=== PATIENT | female | born 1995 | race Two or more races ===

== ENCOUNTER 2022-01-10 10:15 | Outpatient (REF) | payer OTHER, SELFPAY ==
--- NOTE | ~2022-01-10 | XR_ITS ---
EXAMINATION: XR CHEST CLINICAL INFORMATION: Mild intermittent asthma COMPARISON: None TECHNIQUE: 2 views of the chest were obtained. FINDINGS: The cardiac and mediastinal contours are normal. There are increased central bronchial markings suggestive of bronchial wall thickening or asthma. No evidence of a lobar pneumonia is seen. There is no pleural effusion or pneumothorax. Bony structures are unremarkable. XR/XR chest 2V IMPRESSION: Central bronchial wall thickening suggestive of bronchitis or asthma. No evidence of a lobar pneumonia.
== END 2022-01-10 10:16 | disposition home or self-care (01) ==
LOC: HO.HMGCX 10:15
PROVIDERS: PCP Internal Medicine; Visit Provider Internal Medicine
DX: J45.20 Mild intermittent asthma, uncomplicated (principal); R05.9 Cough, unspecified
CPT/HCPCS: 71046

== ENCOUNTER 2022-04-28 15:23 | Outpatient (REF) | payer OTHER, SELFPAY ==
[2022-04-29 05:22] LABS: Rubella IgG Antibody 8.25 Index
[2022-05-01 09:00] LABS: HBS Num1 11.59 mIU/mL (0-7.99)
[2022-05-01 09:05] LABS: HBS Num2 12.14 mIU/mL (0-7.99); HBS Num3 11.59 mIU/mL (0-7.99); ~Hepatitis B Surface Antibody GRAYZONE (Nonreactive)
== END 2022-04-28 15:24 | disposition home or self-care (01) ==
LOC: HO.HMGCLDS 15:23
PROVIDERS: PCP Internal Medicine; Visit Provider Internal Medicine
DX: Z01.84 Encounter for antibody response examination (principal)
CPT/HCPCS: 36415; 86706; 86735; 86762; 86765; 86787

== ENCOUNTER 2022-05-18 12:45 | Outpatient (REF) | payer OTHER, SELFPAY ==
[2022-05-21 18:06] LABS: TS Negative Control Passed; TS Panel A 0; TS Panel B 0; TS Positive Control Passed; TSpotTB Negative (Negative)
== END 2022-05-18 12:46 | disposition home or self-care (01) ==
LOC: HO.HMGCLDS 12:45
PROVIDERS: PCP Internal Medicine; Visit Provider Internal Medicine
DX: Z11.1 Encounter for screening for respiratory tuberculosis (principal)
CPT/HCPCS: 36415; 86481

== ENCOUNTER 2022-06-05 12:02 | Outpatient (REF) | payer OTHER, SELFPAY ==
[2022-06-06 08:07] LABS: ~Hepatitis B Surface Antibody REACTIVE (Nonreactive)
== END 2022-06-05 12:03 | disposition home or self-care (01) ==
LOC: HO.HMGCLDS 12:02
PROVIDERS: PCP Internal Medicine; Visit Provider Internal Medicine
DX: Z01.84 Encounter for antibody response examination (principal)
CPT/HCPCS: 36415; 86706

== ENCOUNTER 2023-05-12 14:27 | Emergency (ER) | payer OTHER, SELFPAY ==
--- NOTE | ~2023-05-12 | XR_ITS ---
EXAMINATION: XR HAND, LEFT CLINICAL INFORMATION: Left ring finger pain COMPARISON: None available. TECHNIQUE: PA, lateral, and oblique views of the left hand. FINDINGS: The bones and soft tissues are normal. No fracture. Alignment is anatomic. Joint spaces are maintained. No erosions or soft tissue calcifications. XR/XR hand LT min 3V IMPRESSION: Normal left hand.
--- NOTE | 2023-05-12 14:37 | ED_ITS ---
HPI - General Adult General Chief complaint: Extremity Injury, Upper Stated complaint: sent from [facility], ? broken finger Time Seen by Provider: 05/12/23 14:53 Source: patient Mode of arrival: ambulatory Limitations: no limitations History of Present Illness HPI narrative: 27-year-old female with history of asthma, [id number] here with complaints of left 4th finger swelling and pain for 6 days. Patient cannot recall any injury or trauma but works in a job where she is always hitting her hands on [place]. There is swelling on exam. There is no complaints of redness or warmth. No numbness, tingling or weakness of the extremity Related Data Home Medications Medication Instructions Recorded Confirmed etonogestrel 68 mg subdermal subdermal 01/10/22 05/12/23 implant (Nexplanon) Previous Rx's Medication Instructions Recorded albuterol sulfate 2.5 mg/3 mL 2.5 mg (3 mL) inhalation Q4-6H PRN 12/30/21 (0.083 %) solution for nebulization shortness of breath or wheezing #180 mL Aerochamber MV (inhalational #10 ea 01/10/22 spacing device) Symbicort 160 mcg-4.5 2 puff inhalation Q12H #10.2 grams 12/27/22 mcg/actuation HFA aerosol inhaler (budesonide-formoterol) montelukast 10 mg tablet 10 mg PO QPM #90 tabs 12/27/22 (Singulair) albuterol sulfate 90 mcg/actuation 2 puff inhalation Q6H PRN 01/11/23 aerosol inhaler (Ventolin HFA) shortness of breath or wheezing #8.5 grams meloxicam 15 mg tablet 15 mg PO DAILY #14 tabs 05/12/23 Allergies Allergy/AdvReac Type Severity Reaction Status Date / Time No Known Allergies Allergy Verified 05/12/23 12:07 Review of Systems Review of Systems: Yes all other systems are reviewed and are negative Constitutional: Constitutional: Reports no additional constitutional complaints, Denies body ache(s), Denies chills, Denies fever(s), Denies headache(s) and Denies weakness Eyes: Eyes: Reports no additional eye complaints and Denies change in vision ENT: Reports system reviewed and no additional complaints, except as documented, Denies dizziness, Denies headache(s), Denies nasal congestion, Denies nasal discharge and Denies neck pain Cardiovascular: Cardiovascular: Reports no additional cardiovascular complaints, Denies chest pain, Denies leg edema and Denies dyspnea Respiratory: Respiratory: Reports no additional respiratory complaints, Denies cough and Denies dyspnea Gastrointestinal: Gastrointestinal: Reports no additional gastrointestinal complaints, Denies abdominal pain, Denies diarrhea, Denies nausea and Denies vomiting Genitourinary: Genitourinary: Reports no additional female genitourinary complaints and Denies urinary incontinence Musculoskeletal: Musculoskeletal: Reports no additional musculoskeletal complaints, Denies back pain, Reports arthralgias, Reports joint swelling, Reports limited range of motion, Denies neck pain, Denies numbness and Denies tingling Integumentary/Breasts: Skin/Breast: Reports system reviewed and no additional complaints, except as docu, Reports swelling and Denies rash Neurologic: Reports system reviewed and no additional complaints, except as documented, Denies dizziness, Denies headache(s), Denies numbness, Denies tingling and Denies weakness PMFSH Past Medical History Attestation statement: The following information was validated with the patient. Source: old records reviewed and nursing notes reviewed Medical History Annual visit for general adult medical examination with abnormal findings Anxiety and depression Asthma Contact dermatitis COVID-19 Foot callus History of COVID-19 IBS (irritable bowel syndrome) Mild intermittent asthma Surgical History No pertinent past surgical history Family History Family History Mother No problems noted. Father No problems noted. Social History Social History Housing: House Patient Tobacco Use Status: Former Tobacco user e-Cigarette/Vaping Use: Never Used Second Hand Smoke Exposure: No Substance Use Type: Marijuana Advance Directives: No Advance Directives Information Provided: No Current occupational status: employed Cognitive needs: No Hearing needs: No Vision needs: Yes Physical Exam ED Vital Signs: Vital Signs - 24 hr 05/12/23 14:42 Temperature 97.4 F Pulse Rate 81 Respiratory Rate 18 Blood Pressure 114/75 Pulse Oximetry 98 Oxygen Delivery Method Room Air BMI result Body Mass Index 24.4 Const General: cooperative, healthy appearing, comfortable and no acute distress Orientation/consciousness: patient oriented x3 Limitations: no limitations HENMT Head: Yes normal to inspection Ears: hearing grossly normal bilaterally Eyes General: appearance normal, both eyes and all related structures Neck Neck: Yes normal visual inspection Resp Effort & Inspection: normal respiratory effort Cardio Peripheral pulses: Peripheral pulses 2+ throughout Skin General skin exam: no rashes or lesions noted Neuro General: patient oriented x3 and moves all extremities Cognition (Neuro): normal cognition Gait exam (Neuro): Normal gait present Extrem Other: On the left hand at the 4th digit there is circumferential swelling between the MCP and the PIP. There is no redness or warmth. There pain with flexion but patient is able to with no diff Course Course Course Narrative: This is an RME: Additional HPI, ROS, PE not included below will be deferred to primary provider. 27 yo f injured a finger in her left hand and would like it evaluated went to walk in and was told to come here. She does not recall the actual injury but it happened a week ago.? Subsequently it has been swollen and painful to move.? PE patient with finger in splint Plan x ray Reevaluation(s) Reevaluation #1: X-ray show no acute bony abnormality. ? Contusion versus sprain. Patient has a finger splint. Recommend rice at home. Reviewed worrisome signs and symptoms of when to return to the emergency room. Comfortable plan for discharge home. Medical Decision Making Medical Decision Making MDM Narrative: 27-year-old female with history of asthma, [id number] here with complaints of left 4th finger swelling and pain for 6 days. Patient cannot recall any injury or trauma but works in a job where she is always hitting her hands on [place]. There is swelling on exam. There is no complaints of redness or warmth. No numbness, tingling or weakness of the extremity Will check x-rays Differential Diagnosis Differential Diagnoses: The differential diagnosis associated with the presentation includes Contusion fracture, strain Independent Interpretation I performed an independent interpretation of an: Plain X-Ray Interpretation: I independently reviewed the x-ray and agree with radiologist's report Radiology Impression Discussion of test interpretation with radiology: I have reviewed the radiologist's reading. Radiologist Impression: [address] [address] XRay Report Signed Patient: Elizabeth Mosher MR#: [id number] : 1995 Acct:[id number] Age/Sex: 27 / F ADM Date: 05/12/23 Loc: HO.ED Attending Dr: Ordering Physician: Garret Ba Date of Service: 05/12/23 Procedure(s): XR hand LT min 3V Accession Number(s): [id number] cc: Garret Ba~ EXAMINATION: XR HAND, LEFT CLINICAL INFORMATION: Left ring finger pain? COMPARISON: None available.? TECHNIQUE: PA, lateral, and oblique views of the left hand. FINDINGS: The bones and soft tissues are normal. No fracture. Alignment is anatomic. Joint spaces are maintained. No erosions or soft tissue calcifications.? XR/XR hand LT min 3V IMPRESSION: Normal left hand. Discharge Plan Discharge Clinical Impression: Finger sprain Patient Disposition: Home, Self-Care Instructions: Finger Sprain (ED) Additional Instructions: Use the splint for comfort Motrin or Tylenol for pain Ice to the area Follow-up with your doctor for any continued symptoms Prescriptions: No Action albuterol sulfate 2.5 mg /3 mL (0.083 %) solution for nebulization 2.5 mg inhalation Q4-6H PRN (Reason: shortness of breath or wheezing) Qty: 180 0RF albuterol sulfate [Ventolin HFA] 90 mcg/actuation HFA aerosol inhaler 2 puff inhalation Q6H PRN (Reason: shortness of breath or wheezing) Qty: 8.5 2RF Nexplanon 68 mg implant subdermal (DME) Aerochamber MV Spacer See Rx Instructions .Route Qty: 10 0RF Rx Instructions: As directed meloxicam 15 mg tablet 15 mg PO DAILY Qty: 14 0RF budesonide-formoterol [Symbicort] 160-4.5 mcg/actuation HFA aerosol inhaler 2 puff inhalation Q12H Qty: 10.2 5RF montelukast [Singulair] 10 mg tablet 10 mg PO QPM Qty: 90 3RF
[2023-05-12 14:42] VITALS: BP 114/75; PULSE 81; RESP 18; TEMP 36.3; O2SAT 98; BMI 24.4
== END 2023-05-12 15:56 | disposition home or self-care (01) ==
PROVIDERS: Emergency Provider Emergency Medicine; PCP Internal Medicine
DX: S63.695A Other sprain of left ring finger, initial encounter (principal); X58.XXXA Exposure to other specified factors, initial encounter; Y93.9 Activity, unspecified; Y92.9 Unspecified place or not applicable; Y99.9 Unspecified external cause status
CPT/HCPCS: 73130; 99282; 99283

== ENCOUNTER 2023-07-24 09:30 | Outpatient (REF) | payer OTHER, SELFPAY ==
[2023-07-26 20:38] LABS: TS Negative Control Passed; TS Panel A 0; TS Panel B 0; TS Positive Control Passed; TSpotTB Negative (Negative)
== END 2023-07-24 09:31 | disposition home or self-care (01) ==
LOC: HO.HMGCLDS 09:30
PROVIDERS: PCP Internal Medicine; Visit Provider Internal Medicine
DX: Z11.1 Encounter for screening for respiratory tuberculosis (principal)
CPT/HCPCS: 36415; 86481

== ENCOUNTER 2024-05-06 14:53 | Outpatient (AMB) | payer OTHER, SELFPAY ==
--- NOTE | 2024-05-06 14:34 | MHC.PC.OV ---
Intake Visit Reasons: Discuss asthma management iPhone Intake Note: Telehealth visit to discuss asthma management. Pt states that she needs a refill on her inhaler. Allergies No Known Allergies Allergy (Verified 05/07/24 00:23) Medication List - Last Reconciled 05/07/24 by Rose Barba MD Aerochamber MV (inhalational spacing device) As directed NS albuterol sulfate 2.5 mg (3 mL) inhalation Q4-6H PRN albuterol sulfate 90 mcg/actuation (Ventolin HFA) 2 puffs inhalation Q6H PRN etonogestrel (Nexplanon) subdermal montelukast (Singulair) 10 mg PO QPM Symbicort 160-4.5 mcg/actuation (budesonide-formoterol) 2 puffs inhalation Q12H NS Tobacco use date assessed: 05/06/24 Dental Screening Dental Screen Date: 05/06/24 Did you have a dental visit in the last 12 months?: Yes Did you have a dental problem in the last 6 months where you did not have access to dental care?: No Was dental information given to patient?: Patient has dentist HPI Discuss asthma management iPhone HPI Details 28-year-old lady with mild intermittent asthma, here today to discuss proper use of her asthma medications. Patient states that she has been having frequent attacks of asthma this past few months, and has to use her albuterol inhaler daily , takes her montelukast 10 mg tablet once a day in the afternoon, but only uses her Symbicort inhaler every now and then. She does use a spacer for her inhalers. [facility] Medical History (Updated 05/07/24 @ 00:30 by Rose Barba MD) History of irritable bowel syndrome History of depression History of COVID-19 Mild intermittent asthma COVID-19 Surgical History No pertinent past surgical history Family History Mother No problems noted. Father No problems noted. Social History Housing: House Patient Tobacco Use Status: Never used Tobacco e-Cigarette/Vaping Use: Never Used Second Hand Smoke Exposure: No Substance Use Type: Marijuana service: No Current occupational status: employed Cognitive needs: No Hearing needs: No Vision needs: Yes Questionnaire PHQ-9 Over the last 2 weeks, how often have you been bothered by any of the following problems? 1. Little interest or pleasure in doing things: not at all 2. Feeling down, depressed, or hopeless: not at all 3. Trouble falling or staying asleep, or sleeping too much: more than half the days 4. Feeling tired or having little energy: not at all 5. Poor appetite or overeating: not at all 6. Feeling bad about yourself - or that you are a failure or have let yourself or your family down: not at all 7. Trouble concentrating on things, such as reading the newspaper or watching television: several days 8. Moving or speaking so slowly that other people could have noticed. Or the opposite - being so fidgety or restless that you have been moving around a lot more than usual: not at all 9. Thoughts that you would be better off or of hurting yourself in some way: not at all Total score: 3 Depression Screening Interpretation: Negative Depression Screening Done: Yes 80026 - PHQ-9 Billing: Yes Source: Developed by Drs. Duke Mayberry, Sagrario Cordova, Geoff Fry and colleagues, with an educational allan from [employer]. Thrive Questionnaire Date Thrive assessed: 05/06/24 I am a: Patient What is your living situation today?: I have a steady place to live Within the past 12 months, did the food you bought not last and you didn't have the money to get more?: Never true Within the past 12 months, did you worry whether your food would run out before you got money to buy more?: Never true Do you have trouble paying for medicines?: No Do you have trouble getting transportation to medical appointments?: No Do you have trouble paying your heating and electricity bill?: No Do you have trouble taking care of your child, family member or friend?: No Do you have trouble with day-to-day activities such as bathing, preparing meals, shopping, managing finances, etc.?: No Are you currently unemployed and looking for a job?: No Are you interested in more education?: No Please select the resources that you would like help with: None THRIVE Score: 0 AUDIT C Alcohol Use Questionnaire (AUDIT-C) 1. How often do you have a drink containing alcohol?: Never 3. How often do you have six or more drinks on one occasion?: Never Total Score: 0 NIURKA-7 AMB Questionnaire NIURKA-7 Date NIURKA - 7 assessed: 02/20/23 Feeling nervous, anxious, or on edge: 1 = Several days Not being able to stop or control worryin = Several days Worrying too much about different things: 1 = Several days Trouble relaxin = Not at all Being so restless that it is hard to sit still: 0 = Not at all Becoming easily annoyed or irritable: 0 = Not at all Feeling afraid as if something awful might happen: 0 = Not at all Total NIURKA-7 score (0-4 normal; 5-9 mild; 10-14 moderate; 15-21 severe): 3 Source: Developed by Drs. Duke Mayberry, Sagrario Cordova, Geoff Fry and colleagues, with an educational allan from [employer]. NIURKA-7 Assessment Billing NIURKA-7 Assessment Tool: NIURKA-7 Assessment 61730 ACT Questionnaire In the past 4 weeks, how much of the time did your asthma keep you from getting as much done at work, school or at home?: All of the time During the past 4 weeks, how often have you had shortness of breath?: More than once a day During the past 4 weeks, how often did your asthma symptoms wake you up at night or earlier than usual in the morning?: 4 or more nights a week During the past 4 weeks, how often have you had to use your rescue inhaler or nebulizer medication?: More than 3 times per day How would you rate your asthma control during the past 4 weeks?: Poorly controlled ACT Interpretation: Positive Score: 6 Review of Systems Const Denies body aches, Denies chills, Denies fever(s) and Denies stops breathing during sleep Eyes Reports no additional complaints ENT Reports no additional complaints Card Denies chest pain, Denies rapid heart rate, Denies irregular heart rhythm, Denies lightheadedness and Denies dyspnea on exertion Resp Reports as per HPI, Reports cough, Denies dyspnea on exertion and Reports wheezing GI Reports no additional complaints Reports no additional complaints Musc Reports no additional complaints Neuro Reports no additional complaints Psych Reports no additional complaints Endo Reports no additional complaints Gerald/Lymph Reports no additional complaints Aller/Immun Reports seasonal rhinorrhea and Reports wheezing Physical exam (Primary Care) Tobacco/Smoking Status: Tobacco use Status Tobacco use date assessed 05/06/24 05/06/24 14:41 Patient Tobacco Use Status Never used Tobacco 05/06/24 14:41 Tobacco use type 01/10/22 10:12 e-Cigarette/Vaping Use Never Used 05/06/24 14:34 PHQ-9: PHQ-9 Score PHQ-9: Total score 3 05/06/24 14:48 Depression Screening Interpretation: Negative Thrive Assessment: Date of Thrive Assessment Date Thrive assessed 05/06/24 05/06/24 14:41 Telehealth Telehealth Telehealth Platform: [email or web address] Location of provider rendering services: practice address Location of patient: address on file Patient Identification confirmed using: Name, : Yes Telehealth method: video Patient verbally consented to treatment: Yes Patient verbally consented to billing insurance company: Yes Patient informed of any privacy concerns related to visit: Yes Minutes spent on Phone/Video with Pt.: 15 Assessment and Plan Assessment & Plan (1) Mild intermittent asthma: Code(s): J45.20 - Mild intermittent asthma, uncomplicated Qualifiers: Asthma complication type: uncomplicated Qualified Code(s): J45.20 - Mild intermittent asthma, uncomplicated (2) Medication care plan discussed with patient: Code(s): Z71.89 - Other specified counseling Plan Patient instructed to take her Symbicort 2 inhalations every 12 hours, to space at least a minute or 2 between use, rinse mouth well after use. Patient has shown proper technique of using inhaler, advised to always use the spacer. Instructed to only use albuterol inhaler every 4-6 hours as needed for episodes of bronchospasm and wheezing, and only use albuterol nebulizer treatment if having a lot of chest congestion and tightness and if albuterol inhaler does not afforded any relief. Continue taking montelukast 10 mg 1 tablet in the afternoon. She is up-to-date with her pneumo coccal vaccine, and reminded to get her yearly flu shot as well as her COVID booster. Medications: Changed From Symbicort 160-4.5 mcg/actuation (budesonide-formoterol) 2 puffs inhalation Q12H 10.2 grams 1RF NS J45.20 - Mild intermittent asthma, uncomplicated To Symbicort 160-4.5 mcg/actuation (budesonide-formoterol) Rinse mouth after use 2 puffs inhalation Q12H 10.2 grams 6RF NS J45.20 - Mild intermittent asthma, uncomplicated Refilled albuterol sulfate 2.5 mg (3 mL) inhalation Q4-6H PRN 180 mL 0RF shortness of breath or wheezing J45.909 - Unspecified asthma, uncomplicated albuterol sulfate 90 mcg/actuation (Ventolin HFA) 2 puffs inhalation Q6H PRN 8.5 grams 5RF shortness of breath or wheezing Coding Level of Care Code Tele Est Pt Level 4 (71816) Diagnoses Mild intermittent asthma without complication J45.20 Asthma complication type: uncomplicated Medication care plan discussed with patient Z71.89 Additional Codes NIURKA-7 Assessment Billing - NIURKA-7 Assessment Tool: NIURKA-7 Assessment 22354 ([id number])
== END 2024-05-06 17:10 | disposition home or self-care (01) ==
LOC: HO.HMGC 14:53
PROVIDERS: PCP Internal Medicine; Visit Provider Internal Medicine
DX: J45.20 Mild intermittent asthma, uncomplicated (principal); Z71.89 Other specified counseling
CPT/HCPCS: 99214

== ENCOUNTER 2024-06-02 12:10 | Emergency (ER) | payer OTHER, SELFPAY ==
[2024-06-02 12:27] VITALS: BP 143/90; PULSE 59; RESP 20; TEMP 36.5; O2SAT 100; BMI 25.2
[2024-06-02 12:45] LABS: MANUAL DIFF FLAG NO
[2024-06-02 12:46] LABS: Basophils Percent Auto 0.3 % (0-2); Eosinophils Absolute Auto 0.6 X10*3/uL (0.0-0.4); Eosinophils Percent Auto 5.9 % (0-4); Hematocrit 38.4 % (37.0-47.0); Imm Gran Abs Auto 0.03 X10*3/uL (0.00-0.03); Imm Gran Pct Auto 0.3 % (0.0-0.4); Lymphocytes Absolute Auto 2.7 X10*3/uL (1.2-4.9); Lymphocytes Percent Auto 24.7 % (20-40); Mean Corpuscular HGB Conc 33.9 g/dl (31.0-35.0); Mean Corpuscular Volume 82.6 fL (80.0-98.0); Monocytes Absolute Auto 0.5 X10*3/uL (0.1-1.2); Monocytes Percent Auto 4.5 % (2-11); Neutrophils Absolute Auto 6.9 x10*3/uL (2.0-8.3); Neutrophils Percent Auto 64.3 % (45-73); Platelet Count 269 X10*3/uL (160-400); Red Blood Count 4.65 X10*6/uL (4.20-5.50); Red Cell Distribution Width 14.6 % (11.0-16.0); White Blood Count 10.8 X10*3/uL (4.8-10.8)
[2024-06-02 13:02] LABS: Alanine Aminotransferase 25 U/L (0-31); Albumin Level 4.1 g/dL (3.5-5.0); Alkaline Phosphatase 66 U/L (39-117); Anion Gap 12 (12-20); Aspartate Amino Transferase 25 U/L (5-31); Bilirubin Total 0.8 mg/dL (0.0-1.0); Blood Urea Nitrogen 6 mg/dL (9-16); Calcium 9.6 mg/dL (8.4-10.2); Carbon Dioxide 21 mmol/L (22-29); Chloride 110 mmol/L (96-108); Creatinine Clr Calc Pharmacy 84.5; Estimated Glomerular Filt Rate > 60; Glucose Random 89 mg/dL (60-115); Sodium 139 mmol/L (135-145); Total Protein 7.8 g/dL (6.5-8.0)
[2024-06-02 13:08] LABS: COVID-19 Test Negative (Negative); IDNOW Serial# 9DB6401D
[2024-06-02] MEDS: Acetaminophen 325 MG TABLET 975 MG PO (13:42)
[2024-06-02] MEDS: Ondansetron ODT 4 MG TAB.RAPDIS TRANSLINGU (13:42)
== END 2024-06-02 17:16 | disposition left against medical advice (07) ==
PROVIDERS: Emergency Provider Emergency Medicine; PCP Internal Medicine
DX: G43.909 Migraine, unspecified, not intractable, without status migrainosus (principal); R06.02 Shortness of breath; Z11.52 Encounter for screening for COVID-19; Z79.899 Other long term (current) drug therapy
CPT/HCPCS: 80053; 85025; 87635; 99282; 99283

== ENCOUNTER 2024-06-11 13:30 | Outpatient (AMB) | payer OTHER, SELFPAY ==
[2024-06-11 13:39] VITALS: BP 96/60; PULSE 95; O2SAT 97; BMI 25.0
--- NOTE | 2024-06-11 13:39 | A.OFFPC_ITS ---
Vital Signs 06/11/24 13:39 Height 5 ft Weight 128 lb BMI 25.0 BP 96/60 Blood Pressure Location Lt brachial Position Sitting Pulse 95 Pulse Source Pulse Oximeter Pulse Oximetry (%) 97 Oxygen Delivery Method Room Air Intake Visit Reasons: PE Intake Note: Pt is here today for her PE: last papsmear 12/18/22 Allergies No Known Allergies Allergy (Verified 06/11/24 14:08) Medication List - Last Reconciled 06/11/24 by Rose Barba MD Aerochamber MV (inhalational spacing device) As directed NS albuterol sulfate 2.5 mg (3 mL) inhalation Q4-6H PRN albuterol sulfate 90 mcg/actuation (Ventolin HFA) 2 puffs inhalation Q6H PRN etonogestrel (Nexplanon) subdermal montelukast (Singulair) 10 mg PO QPM Symbicort 160-4.5 mcg/actuation (budesonide-formoterol) 2 puffs inhalation Q12H NS Tobacco use date assessed: 06/11/24 Dental Screening Dental Screen Date: 06/11/24 Did you have a dental visit in the last 12 months?: Yes Did you have a dental problem in the last 6 months where you did not have access to dental care?: No Was dental information given to patient?: Patient has dentist HPI PE HPI Details 29-year-old lady with mild intermittent asthma and seasonal allergies, currently controlled , here today for physical exam. She is up-to-date with her cervical cancer screening last done 2022 with normal findings, [facility] Has been feeling well with no complaints at present time [facility] Medical History (Updated 06/11/24 @ 14:52 by Rose Barba MD) Generalized anxiety disorder History of irritable bowel syndrome History of depression History of COVID-19 Mild intermittent asthma COVID-19 Surgical History No pertinent past surgical history Family History Mother No problems noted. Father No problems noted. Social History Housing: House Patient Tobacco Use Status: Never used Tobacco e-Cigarette/Vaping Use: Never Used Second Hand Smoke Exposure: No Substance Use Type: Marijuana service: No Current occupational status: employed Cognitive needs: No Hearing needs: No Vision needs: Yes Questionnaire PHQ-9 Over the last 2 weeks, how often have you been bothered by any of the following problems? 1. Little interest or pleasure in doing things: not at all 2. Feeling down, depressed, or hopeless: not at all 3. Trouble falling or staying asleep, or sleeping too much: several days 4. Feeling tired or having little energy: several days 5. Poor appetite or overeating: several days 6. Feeling bad about yourself - or that you are a failure or have let yourself or your family down: not at all 7. Trouble concentrating on things, such as reading the newspaper or watching television: not at all 8. Moving or speaking so slowly that other people could have noticed. Or the opposite - being so fidgety or restless that you have been moving around a lot more than usual: not at all 9. Thoughts that you would be better off or of hurting yourself in some way: not at all Total score: 3 Depression Screening Interpretation: Negative Depression Screening Done: Yes 65409 - PHQ-9 Billing: Yes Source: Developed by Drs. Duke Mayberry, Sagrario Cordova, Geoff Fry and colleagues, with an educational allan from [employer]. Thrive Questionnaire Date Thrive assessed: 06/11/24 I am a: Patient What is your living situation today?: I have a place to live, but I am worried about losing it in the future Within the past 12 months, did the food you bought not last and you didn't have the money to get more?: Sometimes True Within the past 12 months, did you worry whether your food would run out before you got money to buy more?: Often true Do you have trouble paying for medicines?: No Do you have trouble getting transportation to medical appointments?: No Do you have trouble paying your heating and electricity bill?: Yes Do you have trouble taking care of your child, family member or friend?: No Do you have trouble with day-to-day activities such as bathing, preparing meals, shopping, managing finances, etc.?: Yes Are you currently unemployed and looking for a job?: No Are you interested in more education?: Yes Please select the resources that you would like help with: Housing/Assisted, Food and Utilities Currently or been in a relationship where the following occur: No concerns reported THRIVE Score: 4 AUDIT C Alcohol Use Questionnaire (AUDIT-C) 1. How often do you have a drink containing alcohol?: Monthly or less 2. How many drinks containing alcohol do you have on a typical day when you are drinking?: 1 or 2 3. How often do you have six or more drinks on one occasion?: Never Total Score: 1 NIURKA-7 AMB Questionnaire NIURKA-7 Date NIURKA - 7 assessed: 06/11/24 Feeling nervous, anxious, or on edge: 1 = Several days Not being able to stop or control worryin = Not at all Worrying too much about different things: 1 = Several days Trouble relaxin = Several days Being so restless that it is hard to sit still: 0 = Not at all Becoming easily annoyed or irritable: 1 = Several days Feeling afraid as if something awful might happen: 0 = Not at all Total NIURKA-7 score (0-4 normal; 5-9 mild; 10-14 moderate; 15-21 severe): 4 Source: Developed by Drs. Duke Mayberry, Sagrario Cordova, Geoff Fry and colleagues, with an educational allan from [employer]. NIURKA-7 Assessment Billing NIURKA-7 Assessment Tool: NIURKA-7 Assessment 41987 ACT Questionnaire In the past 4 weeks, how much of the time did your asthma keep you from getting as much done at work, school or at home?: None of the time During the past 4 weeks, how often have you had shortness of breath?: 1-2 times a week During the past 4 weeks, how often did your asthma symptoms wake you up at night or earlier than usual in the morning?: Not at all During the past 4 weeks, how often have you had to use your rescue inhaler or nebulizer medication?: Not at all How would you rate your asthma control during the past 4 weeks?: Well controlled Score: 23 Review of Systems Const Denies body aches, Denies chills, Denies fever(s) and Denies stops breathing during sleep Eyes Reports no additional complaints ENT Reports no additional complaints Card Denies chest pain, Denies rapid heart rate, Denies irregular heart rhythm, Denies lightheadedness and Denies dyspnea on exertion Resp Reports as per HPI, Reports cough, Denies dyspnea on exertion and Reports wheezi ng GI Reports no additional complaints Reports no additional complaints Musc Reports no additional complaints Skin/Breast Denies breast pain, Denies breast mass and Denies rash Neuro Reports no additional complaints Psych Reports no additional complaints Endo Reports no additional complaints Gerald/Lymph Reports no additional complaints Aller/Immun Reports seasonal rhinorrhea and Reports wheezing Physical exam (Primary Care) Vital Signs: Last Vital Signs Pulse 95 06/11/24 13:39 BP 96/60 06/11/24 13:39 Pulse Ox 97 06/11/24 13:39 Oxygen Delivery Method Room Air 06/11/24 13:39 BMI result Body Mass Index 25.0 Tobacco/Smoking Status: Tobacco use Status Tobacco use date assessed 06/11/24 06/11/24 13:42 Patient Tobacco Use Status Never used Tobacco 06/11/24 13:42 Tobacco use type 01/10/22 10:12 e-Cigarette/Vaping Use Never Used 06/11/24 13:42 PHQ-9: PHQ-9 Score PHQ-9: Total score 3 06/11/24 14:09 Depression Screening Interpretation: Negative Thrive Assessment: Date of Thrive Assessment Date Thrive assessed 06/11/24 06/11/24 13:42 Currently or been in a relationship where the following occur: No concerns reported Advance Care Planning discussion: Completed/Scanned Date of discussion: 06/11/24 Who was present: Patient Forms completed: Health Care Proxy Time spent: 16-45 minutes Actual minutes spent: 16 Const Other: Alert oriented x3, no acute distress noted Orientation/consciousness: patient oriented x3 [facility] General nose exam: Normal external nose present and No nasal discharge present Face and sinus: Yes face symmetric Mouth: Normal oral and palatal mucosa present, oropharynx normal and moist mucous membranes Eyes General: appearance normal, both eyes and all related structures Neck Neck: Yes full ROM, Yes no lymphadenopathy, Yes no meningeal signs and Yes supple Chest Chest palpation & inspection: normal inspection of the chest Breast/axilla inspection: normal inspection of the breasts Breast/axilla palpation: normal palpation of the breasts Resp Effort & Inspection: normal respiratory effort Auscultation: clear to auscultation bilaterally Cardio Other: S1 and S2 present regular rate and rhythm GI Palpation (GI): Soft to palpation, nontender, no guarding and no masses Auscultation: normal bowel sounds General: Yes no CVA tenderness and Yes deferred (Goes to [facility], recent Pap smear done negative December 19) Back/Spine/Pelvis Back: no CVA tenderness and No back tenderness Skin General skin exam: no rashes or lesions noted Neuro General: patient oriented x3, gait normal, tone normal, moves all extremities, Normal light touch and pain sensation, no meningeal signs, no focal motor deficits and CN's II-XI intact bilaterally Extrem General: Yes normal to inspection, Yes full ROM, Yes normal exam except as noted, Yes no joint enlargement, Yes no clubbing, cyanosis or edema, Yes no pedal edema, Yes no calf tenderness and Yes normal gait Psych Appearance: grossly normal and well kempt Mental Status: mental status grossly normal Speech and movement: Normal speech and movement present Affect: normal affect Attitude: cooperative Thought process: Normal thought process present Thought content: Normal thought content present Assessment and Plan Assessment & Plan (1) Annual visit for general adult medical examination with abnormal findings: Code(s): Z00.01 - Encounter for general adult medical examination with abnormal findings Plan: Will check appropriate labs. Advised to get regular dental visit every 6 months and regular eye exams, at least every 2 years. Take adequate calcium in diet and vitamin-D 3 at 2000 IU per cap once a day, in addition to weight-bearing exercises to help maintain good muscle tone and weight control. Instructed to do self-breast exam, and recommended to get yearly mammogram, starting at age 40. [facility] to [facility] and pelvic exam. Has had COVID vaccines in the past but does not want to get the booster, reminded to get yearly flu shot, up-to-date with her Tdap and Prevnar 20 vaccination (2) Mild intermittent asthma: Code(s): J45.20 - Mild intermittent asthma, uncomplicated Qualifiers: Asthma complication type: uncomplicated Qualified Code(s): J45.20 - Mild intermittent asthma, uncomplicated Plan: Continue Symbicort, montelukast, and has albuterol inhaler as needed for episodes of bronchospasm and wheezing. Up-to-date with her Prevnar 20 vaccination (3) Encounter for counseling regarding advance directives: Code(s): Z71.89 - Other specified counseling Plan: Initiated the conversation about Advanced Directives. Advanced Directives help patients prepare for current and future decisions about their medical treatment and place of care. Discussed with patient that it is a process where a patients current condition and prognosis are reviewed, their wishes for information regarding their illness are elicited, and likely medical dilemmas are presented and options discussed. Healthcare proxy done The form can be amended as needed, reviewed yearly and make changes as needed Orders: Orders Lipid Panel 06/11/24 Z00.01 - Encounter for general adult medical examination with abnormal findings, Z13.220 - Encounter for screening for lipoid disorders Coding Level of Care Code Est Pt Prev Care [id number]([id number]) Diagnoses Annual visit for general adult medical examination with abnormal findings Z00.01 Mild intermittent asthma without complication J45.20 Asthma complication type: uncomplicated Encounter for counseling regarding advance directives Z71.89 Additional Codes NIURKA-7 Assessment Billing - NIURKA-7 Assessment Tool: NIURKA-7 Assessment 14014 ([id number]) Vital Signs *Quality* - Advance Care Planning discussion: Completed/Scanned ([id number]) Vital Signs *Quality* - Time spent: 16-45 minutes ([id number])
== END 2024-06-11 15:59 | disposition home or self-care (01) ==
PROVIDERS: PCP Internal Medicine; Visit Provider Internal Medicine
DX: Z00.00 Encounter for general adult medical examination without abnormal findings (principal); J45.20 Mild intermittent asthma, uncomplicated
CPT/HCPCS: 1123F; 99395; 99497

== ENCOUNTER 2024-07-03 11:37 | Outpatient (REF) | payer OTHER, SELFPAY ==
[2024-07-03 13:38] LABS: Cholesterol 148 mg/dL (<200); HDL Cholesterol 48 mg/dL (>40); LDL Cholesterol Calculated 89 mg/dL (<100); Triglycerides 56 mg/dL (<150)
== END 2024-07-03 11:38 | disposition home or self-care (01) ==
LOC: HO.HMGCLDS 11:37
PROVIDERS: PCP Internal Medicine; Visit Provider Internal Medicine
DX: Z00.01 Encounter for general adult medical examination with abnormal findings (principal); Z13.220 Encounter for screening for lipoid disorders
CPT/HCPCS: 36415; 80061

== ENCOUNTER 2024-07-14 16:04 | Emergency (ER) | payer OTHER, SELFPAY ==
--- NOTE | ~2024-07-14 | US_ITS ---
EXAMINATION: US VENOUS WITH DOPPLER UPPER EXTREMITY, LEFT CLINICAL INFORMATION: History of DVT. Pain. COMPARISON: None available. TECHNIQUE: Ultrasound of the upper extremity is performed using compression sonography and color and pulse Doppler flow with assessment of augmentation of flow. There is also imaging and Doppler assessment of the jugular and subclavian veins. Spectral analysis with color-flow imaging is performed. FINDINGS: Occlusive thrombus is seen throughout the left basilic vein both proximally and distally. Remaining left upper extremity veins demonstrate normal respiratory variation, normal compression, and augmented flow. There is normal flow in the internal jugular and subclavian veins. US/US venous duplex UE LT IMPRESSION: Occlusive thrombus is seen throughout the left basilic vein both proximally and distally. This critical result was discussed with Kim morataya at 6:41 PM on 07/14/2024 and it was ascertained that the content and urgency of the report was understood at the time of direct communication.
--- NOTE | 2024-07-14 16:10 | ED_ITS ---
HPI - Extremity Problem General Chief complaint: Extremity Injury, Upper Stated complaint: Blood Clot L Arm Time Seen by Provider: 07/14/24 16:34 Source: patient Mode of arrival: ambulatory Limitations: no limitations History of Present Illness ED Provider: Kim Farias PA-C HPI Narrative: 29-year-old female with past medical history of asthma, anxiety, presenting to the ED complaining of left arm pain and reported superficial blood clot to basilic vein diagnosed at [facility] yesterday. Reports was having pain, did have IV placed to left arm about 1 month ago, was told to take NSAIDs/ASA however woke up this morning with worsening swelling/pain thus presented to the ED. Denies recent injury/trauma or fall, fever/chills. Reports SOB, chronically due to asthma. Denies history of clots. Does have Nexplanon to LUE Related Data Home Medications ?Medication ?Instructions ?Recorded ?Confirmed etonogestrel 68 mg subdermal subdermal 01/10/22 05/07/24 implant (Nexplanon) Previous Rx's ?Medication ?Instructions ?Recorded Aerochamber MV (inhalational #10 ea 01/10/22 spacing device) montelukast 10 mg tablet 10 mg PO QPM #90 tabs 02/25/24 (Singulair) Symbicort 160 mcg-4.5 2 puff inhalation Q12H #10.2 grams 05/06/24 mcg/actuation HFA aerosol inhaler (budesonide-formoterol) albuterol sulfate 2.5 mg/3 mL 2.5 mg (3 mL) inhalation Q4-6H PRN 05/06/24 (0.083 %) solution for nebulization shortness of breath or wheezing #180 mL Ventolin HFA 90 mcg/actuation 2 puff inhalation Q6H PRN 07/09/24 aerosol inhaler (albuterol sulfate) shortness of breath or wheezing #18 grams cephalexin 500 mg capsule 500 mg PO QID 7 days #28 caps 07/14/24 Allergies Allergy/AdvReac Type Severity Reaction Status Date / Time No Known Allergies Allergy Verified 07/14/24 16:14 Review of Systems Review of Systems: Constitutional: No Fever, No Chills ENT/Mouth: No Ear Pain, No Nasal Congestion, No sore throat, No Rhinorrhea, No Swallowing Difficulty Cardiovascular: No Chest Pain, + SOB (Chronic) Respiratory: No Cough, No Sputum, No Wheezing Musculoskeletal: + joint pain, No Myalgias, No Joint Swelling Skin: No Skin Lesions, No rash Neuro: No Weakness, No Numbness, No Paresthesias Yes all other systems are reviewed and are negative Constitutional: Constitutional: Reports as per [facility] Past Medical History Attestation statement: The following information was validated with the patient. Source: old records reviewed Medical History Generalized anxiety disorder History of irritable bowel syndrome History of depression History of COVID-19 Mild intermittent asthma COVID-19 Surgical History No pertinent past surgical history Family History Family History Mother No problems noted. Father No problems noted. Social History Social History Housing: House Patient Tobacco Use Status: Never used Tobacco e-Cigarette/Vaping Use: Never Used Second Hand Smoke Exposure: No Substance Use Type: Marijuana Advance Directives: No Advance Directives Information Provided: No service: No Current occupational status: employed Cognitive needs: No Hearing needs: No Vision needs: Yes Physical Exam Vital Signs: Vital Signs: Last Vital Signs Temp 97.9 F 07/14/24 18:31 Pulse 76 07/14/24 18:31 Resp 16 07/14/24 18:31 BP 111/56 L 07/14/24 18:31 Pulse Ox 96 07/14/24 18:31 O2 Del Method Room Air 07/14/24 18:31 BMI result Body Mass Index 24.7 Const: General: cooperative, healthy appearing and no acute distress Orientation/consciousness: patient oriented x3 Limitations: no limitations HEENT: Head: Yes normal to inspection and Yes atraumatic Ears: hearing grossly normal bilaterally General nose exam: Normal external nose present Face and sinus: Yes normal facial exam Eyes: General: appearance normal, both eyes and all related structures EOM: EOMs intact bilaterally Neck: Neck: Yes normal visual inspection and Yes no meningeal signs Resp: Effort & Inspection: normal respiratory effort and no respiratory distress Auscultation: clear to auscultation bilaterally Cardio: Rate: regular rate Heart sounds: S1 normal heart sound present and S2 normal heart sound present Peripheral pulses: Peripheral pulses 2+ throughout Skin: Rashes: no rashes Wounds: no wounds Neuro: General: patient oriented x3, tone normal and no meningeal signs Cranial nerves: Yes CN's II-XII intact bilaterally Gait exam (Neuro): Normal gait present Motor exam (neuro): 5/5 motor strength present throughout Sensory Exam: Normal double simultaneous stimulation for sensation Extrem: Other: + mild erythema and warmth to left AC wi th palpable cord. Full range of motion intact. No crepitus. No streaking. Not circumferential. no swelling/pitting edema General: Yes normal to inspection, Yes full ROM and Yes capillary refill normal Course Course Course Narrative: This is a Rapid Medical Examination (RME) performed by Niels Singh PA-C in triage. Full HPI, ROS, assessment and treatment plan per primary provider in the Main ED. 29 yo female presents to the ER for evaluation of a superficial blood clot in he r left arm. Seen at [facility] yesterday and told she had a bascilic vein superficial blood clot. Told to come back to the ER for re-evaluation if pain or swelling worsened. Pain now radiating both proximally and distally. Had IV on the left arm and recent blood work as well. Has been taking ASA, NSAID and warm compresses with worsening symptoms. Plan: US doppler r/o progression to deep vein clot US venous duplex UE LT IMPRESSION: Occlusive thrombus is seen throughout the left basilic vein both proximally and distally. > recommended NSAIDs, compression, warm compresses, PCP/vascular follow up as needed Results discussed with patient including worrisome signs and symptoms and strict return precautions, and when to return to the emergency department. They verbalized understanding and feel safe for discharge at this time. Medical Decision Making Medical Decision Making MDM Narrative: 29-year-old female with past medical history of asthma, anxiety, presenting to the ED complaining of left arm pain and reported superficial blood clot to basilic vein diagnosed at [facility] yesterday. On exam vital signs stable, NAD, nontoxic appearing, physical exam as noted above. Concern for superficial thrombophlebitis vs DVT vs early cellulitis. No evidence of lymphangitis. Unlikely PE Plan: Ultrasound Please refer to course for remaining clinical decision making, interpretation of labs/imaging results, and discussions with consultants and/or family members. Differential Diagnosis Differential Diagnoses: The differential diagnosis associated with the presentation includes As above Admission/Observation Consideration of admission/observation: Escalation of care including admission/observation considered Lab Data MDM Lab Attestation statement: I reviewed the patient's lab results. Independent Interpretation I performed an independent interpretation of an: Ultrasound Radiology Impression Discussion of test interpretation with radiology: I have reviewed the radiologis t's reading. External Record Review External record reviewed: Inpatient record, Office record, Outpatient record, Prior outpatient labs, Prior outpatient radiology, Primary care record and Outside ED record Tests considered The following testing was considered but not selected: As above Prescription Management I considered prescription management with: Pain Medication Discharge Plan Discharge Clinical Impression: Basilic vein thrombosis Patient Disposition: Home, Self-Care Instructions: Superficial Thrombophlebitis (ED) Additional Instructions: You have a occlusive thrombus of your left basilic vein Apply warm compresses Take NSAIDs like ibuprofen/Motrin/Aleve Keflex as an antibiotic please take as prescribed for possible early infection Follow-up with her doctor Follow-up with vascular as needed If symptoms persist or worsen, pain becomes unbearable, if increasing swelling, shortness of breath or chest pain return to the ED immediately Prescriptions: New cephalexin 500 mg capsule 500 mg PO QID 7 Days Qty: 28 0RF No Action montelukast [Singulair] 10 mg tablet 10 mg PO QPM Qty: 90 3RF albuterol sulfate [Ventolin HFA] 90 mcg/actuation HFA aerosol inhaler 2 puff inhalation Q6H PRN (Reason: shortness of breath or wheezing) Qty: 18 5RF Nexplanon 68 mg implant subdermal (DME) Aerochamber MV Spacer See Rx Instructions .Route Qty: 10 0RF Rx Instructions: As directed albuterol sulfate 2.5 mg /3 mL (0.083 %) solution for nebulization 2.5 mg inhalation Q4-6H PRN (Reason: shortness of breath or wheezing) Qty: 180 0RF budesonide-formoterol [Symbicort] 160-4.5 mcg/actuation HFA aerosol inhaler 2 puff inhalation Q12H Qty: 10.2 6RF Rx Instructions: Rinse mouth after use Referrals: [facility] [place] [Provider Group] (as needed) oRse Barba MD [Primary Care Provider] - 3 days Print Language: French
[2024-07-14 16:11] VITALS: BP 126/71; PULSE 83; RESP 18; TEMP 36.9; O2SAT 99; BMI 24.7
[2024-07-14 18:31] VITALS: BP 111/56; PULSE 76; RESP 16; TEMP 36.6; O2SAT 96
[2024-07-14 19:06] VITALS: BP 111/56; PULSE 76; RESP 16; TEMP 36.6; O2SAT 96
== END 2024-07-14 19:08 | disposition home or self-care (01) ==
PROVIDERS: Emergency Provider Internal Medicine; PCP Internal Medicine
DX: I82.612 Acute embolism and thrombosis of superficial veins of left upper extremity (principal); M79.602 Pain in left arm
CPT/HCPCS: 93971; 99283; 99284

== ENCOUNTER 2024-07-18 10:13 | Emergency (ER) | payer OTHER, SELFPAY ==
--- NOTE | ~2024-07-18 | US_ITS ---
EXAMINATION: US TRIPLEX UPPER EXTREMITY, LEFT CLINICAL INFORMATION: Reevaluation of thrombosis. COMPARISON: Left upper extremity ultrasound 07/14/2024. TECHNIQUE: Color-flow triplex imaging with spectral analysis and compression Doppler was performed on the left upper extremity. FINDINGS: No significantly change extensive occlusive thrombosis of the entirety of the basilic vein. The left internal jugular, subclavian, and axillary veins are patent and free of thrombus. The brachial, cephalic, radial, and ulnar veins are patent and compressible. US/US venous duplex UE LT IMPRESSION: No significant change compared to 07/14/2024 with redemonstration of extensive occlusive thrombus throughout the left basilic vein. Treatment as clinically warranted with close attention on follow-up, as the thrombus extends near the proximity of the draining site of the basilic vein with the deep venous system. Electronically signed by: Betty Delvalle MD 07/18/2024 02:28 PM EDT
[2024-07-18 10:19] VITALS: BP 127/92; PULSE 68; RESP 18; TEMP 37; O2SAT 98; BMI 24.4
--- NOTE | 2024-07-18 13:14 | ED_ITS ---
HPI - General Adult General Chief complaint: General Medical Stated complaint: l arm pain quest DVT Time Seen by Provider: 07/18/24 13:14 History of Present Illness ED Provider: Salty CAZARES narrative: The patient is a 29-year-old female who was ordinarily very healthy and athletic. 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 She has a Nexplanon device implanted in her left arm. In May of this year the patient was seen at another hospital for heat exhaustion. At that hospitalization she was given IV in her left arm. Last week she developed pain and swelling in her left arm. She went to [facility] and was diagnosed with a superficial thrombophlebitis of the left basilic vein. The next day, July 14, she came here with the same complaint. She had an ultrasound here that showed an occlusive thrombus of the left basilic vein both proximally and distally. She was advised to use aspirin or NSAIDs and was also started on cephalexin. She was discharged. She says that she has not yet had a chance to get into see her PCP. Over the last couple of days she feels that the symptoms have gotten worse and she again comes to the emergency room for evaluation. No fever, sweats, chills. She feels the pain up near the left shoulder and even into the left jaw. No shortness of breath or pain with breathing. Related Data Home Medications ?Medication ?Instructions ?Recorded ?Confirmed etonogestrel 68 mg subdermal subdermal 01/10/22 05/07/24 implant (Nexplanon) Previous Rx's ?Medication ?Instructions ?Recorded Aerochamber MV (inhalational #10 ea 01/10/22 spacing device) montelukast 10 mg tablet 10 mg PO QPM #90 tabs 02/25/24 (Singulair) Symbicort 160 mcg-4.5 2 puff inhalation Q12H #10.2 grams 05/06/24 mcg/actuation HFA aerosol inhaler (budesonide-formoterol) albuterol sulfate 2.5 mg/3 mL 2.5 mg (3 mL) inhalation Q4-6H PRN 05/06/24 (0.083 %) solution for nebulization shortness of breath or wheezing #180 mL Ventolin HFA 90 mcg/actuation 2 puff inhalation Q6H PRN 07/09/24 aerosol inhaler (albuterol sulfate) shortness of breath or wheezing #18 grams cephalexin 500 mg capsule 500 mg PO QID 7 days #28 caps 07/14/24 apixaban 5 mg (74 tabs) tablets in 5 mg PO BID #74 ea 07/18/24 a dose pack (Eliquis DVT-PE Treat 30D Start) Allergies Allergy/AdvReac Type Severity Reaction Status Date / Time No Known Allergies Allergy Verified 07/18/24 10:20 Review of Systems 2 Review of Systems: Yes all other systems are reviewed and are negative [facility] Past Medical History Medical History Generalized anxiety disorder History of irritable bowel syndrome History of depression History of COVID-19 Mild intermittent asthma COVID-19 Surgical History No pertinent past surgical history Family History Family History Mother No problems noted. Father No problems noted. Social History Social History Housing: House Alcohol intake: never Patient Tobacco Use Status: Never used Tobacco Smoked in Last 30 Days: No e-Cigarette/Vaping Use: Never Used Second Hand Smoke Exposure: No Use of substances other than those prescribed or required for medical reasons: Yes Substance Use Type: Marijuana Substance Use Frequency: Socially Advance Directives: Yes Advance Directives on File: Yes Advance Directives Date on File: 06/11/24 Do you have a plan to hurt others: No Plan service: No Current occupational status: employed Cognitive needs: No Hearing needs: No Vision needs: Yes Physical Exam ED Vital Signs: Vital Signs - 24 hr 07/18/24 10:19 07/18/24 16:08 Temperature 98.6 F 98.6 F Pulse Rate 68 68 Respiratory Rate 18 18 Blood Pressure 127/92 H 127/92 H Pulse Oximetry 98 98 Oxygen Delivery Method Room Air Room Air BMI result Body Mass Index 24.4 Const Other: The patient looks as if she is ordinarily very healthy and athletic. She does not appear in acute distress. HENMT Other: Face is symmetrical. Mucous membranes moist. Eyes Other: Pupils are round equal, conjunctivae are clear Neck Other: No neck swelling. Resp Effort & Inspection: normal respiratory effort Auscultation: clear to auscultation bilaterally Cardio Rate: regular rate Rhythm: regular rhythm Heart sounds: S1 normal heart sound present and S2 normal heart sound present Skin Other: Skin is dry and unremarkable. The skin of the left arm does not reveal any erythema or obvious edema. Neuro Other: The patient is awake and alert with a normal mental status. Cranial nerves are grossly intact. She has intact strength and sensation in the left hand. Extrem Other: The patient's left arm basilic vein is visible and palpable near the antecubital fossa. It is cord-like and noncompressible. There is no jatin edema to the left arm or hand. Medications Administered Discontinued Medications Generic Name Dose Route Start Last Admin Trade Name Freq PRN Reason Stop Dose Admin Apixaban 10 mg 07/18/24 15:52 07/18/24 16:02 Apixaban 5 Mg Tablet PO 07/18/24 15:53 10 mg ONCE ONE Administration Medical Decision Making Medical Decision Making [facility] Narrative: The patient is a 29-year-old female, ordinarily healthy and athletic, who has a left basilic vein occlusive thrombus which is a consequence of an IV that was placed at another hospital about a month ago for treatment for heat exhaustion. The thrombus extends for essentially the whole length of the basilic vein. An ultrasound today shows no significant change from an ultrasound 3 days ago. Nevertheless the patient seems more symptomatic. Patient does not seem septic or infected in any way. Given the length of the thrombosed section of vein and its adjacence to the deep vein system I think treatment with anticoagulation would be appropriate in this case. I discussed the case with Dr. Bloom of vascular surgery who concurs with the plan for anticoagulation. The patient will be started on apixaban. She will be discharged to follow-up with Dr. Bloom as an outpatient. Lab Data 07/18/24 14:55 07/18/24 14:56 Labs: Lab Results 07/18/24 07/18/24 Range/Units 14:55 14:56 WBC 13.2 H (4.8-10.8) X10*3/uL RBC 4.51 (4.20-5.50) X10*6/uL Hgb 12.4 (12.0-16.0) g/dl Hct 36.4 L (37.0-47.0) % MCV 80.7 (80.0-98.0) fL MCH 27.5 (27.0-33.0) pg MCHC 34.1 (31.0-35.0) g/dl RDW 14.6 (11.0-16.0) % Plt Count 282 (160-400) X10*3/uL MPV 10.2 (9.4-12.3) fL Immature Gran % (Auto) 0.2 (0.0-0.4) % Neut % (Auto) 61.3 (45-73) % Lymph % (Auto) 23.3 (20-40) % [place] % (Auto) 4.3 (2-11) % Eos % (Auto) 10.4 H (0-4) % Baso % (Auto) 0.5 (0-2) % Lymph # (Auto) 3.1 (1.2-4.9) X10*3/uL [place] # (Auto) 0.6 (0.1-1.2) X10*3/uL Eos # (Auto) 1.4 H (0.0-0.4) X10*3/uL Baso # (Auto) 0.1 (0.0-0.2) X10*3/uL Abs Immat Gran (auto) 0.03 (0.00-0.03) X10*3/uL Absolute Neuts (auto) 8.1 (2.0-8.3) x10*3/uL Absolute Nucleated RBC 0.000 (0.0-0.012) X10*3/uL Nucleated RBC % (auto) 0.0 (0.0-0.2) /100WBC Sodium 141 (135-145) mmol/L Potassium 4.1 (3.3-5.1) mmol/L Chloride 108 (96-108) mmol/L Carbon Dioxide 23 (22-29) mmol/L Anion Gap 14 (12-20) BUN 6 L (9-16) mg/dL Creatinine 0.76 (0.5-1.4) mg/dL Estim Creat Clear Calc 87.7 Estimated GFR > 60 Random Glucose 89 (60-115) mg/dL Calcium 9.8 (8.4-10.2) mg/dL Total Bilirubin 0.5 (0.0-1.0) mg/dL Direct Bilirubin 0.2 (0.0-0.5) mg/dL AST 16 (5-31) U/L ALT 14 (0-31) U/L Alkaline Phosphatase 73 (39-117) U/L C-Reactive Protein 2.22 H (< or = 0.50) mg/dL Total Protein 8.3 H (6.5-8.0) g/dL Albumin 4.3 (3.5-5.0) g/dL Beta HCG, Quant < 2 mIU/mL Discharge Plan Discharge Clinical Impression: Acute thrombosis of left basilic vein Patient Disposition: Home, Self-Care Additional Instructions: A prescription for the anticoagulant medication apixaban (brand name Eliquis) has been sent to your pharmacy. Please take 2 tablets (total of 10 mg) 2 times a day for 1 week. Then take 1 tablet 2 times a day after that. Please contact Dr. Bloom's office for a follow up appointment soon. Also follow up with your regular doctor. Avoid excessively strenuous use of the left arm until you are given additional instructions by the vascular surgeon. Return to the emergency room if significantly worse. Prescriptions: New Eliquis DVT-PE Treat 30D Start 5 mg (74 tabs) tablets,dose pack 5 mg PO BID Qty: 74 0RF Rx Instructions: 10 mg p.o. b.i.d. x7 days then 5 mg p.o. b.i.d. daily No Action montelukast [Singulair] 10 mg tablet 10 mg PO QPM Qty: 90 3RF albuterol sulfate [Ventolin HFA] 90 mcg/actuation HFA aerosol inhaler 2 puff inhalation Q6H PRN (Reason: shortness of breath or wheezing) Qty: 18 5RF cephalexin 500 mg capsule 500 mg PO QID 7 Days Qty: 28 0RF Nexplanon 68 mg implant subdermal (DME) Aerochamber MV Spacer See Rx Instructions .Route Qty: 10 0RF Rx Instructions: As directed albuterol sulfate 2.5 mg /3 mL (0.083 %) solution for nebulization 2.5 mg inhalation Q4-6H PRN (Reason: shortness of breath or wheezing) Qty: 180 0RF budesonide-formoterol [Symbicort] 160-4.5 mcg/actuation HFA aerosol inhaler 2 puff inhalation Q12H Qty: 10.2 6RF Rx Instructions: Rinse mouth after use Referrals: Tony Bloom MD [Physician] - (Left upper extremity occlusive basilic vein thrombus) Interventions: ED Discharge Assessment Last Done: 07/18/24 16:08 Discharge Date/Time: 07/18/24 16:09 Print Language: Beninese
[2024-07-18 14:59] LABS: MANUAL DIFF FLAG NO
[2024-07-18 15:04] LABS: Basophils Absolute Auto 0.1 X10*3/uL (0.0-0.2); Basophils Percent Auto 0.5 % (0-2); Eosinophils Absolute Auto 1.4 X10*3/uL (0.0-0.4); Eosinophils Percent Auto 10.4 % (0-4); Hematocrit 36.4 % (37.0-47.0); Hemoglobin 12.4 g/dl (12.0-16.0); Imm Gran Abs Auto 0.03 X10*3/uL (0.00-0.03); Imm Gran Pct Auto 0.2 % (0.0-0.4); Lymphocytes Absolute Auto 3.1 X10*3/uL (1.2-4.9); Lymphocytes Percent Auto 23.3 % (20-40); Mean Corpuscular HGB Conc 34.1 g/dl (31.0-35.0); Mean Corpuscular Hemoglobin 27.5 pg (27.0-33.0); Mean Corpuscular Volume 80.7 fL (80.0-98.0); Mean Platelet Volume 10.2 fL (9.4-12.3); Monocytes Absolute Auto 0.6 X10*3/uL (0.1-1.2); Monocytes Percent Auto 4.3 % (2-11); Neutrophils Absolute Auto 8.1 x10*3/uL (2.0-8.3); Neutrophils Percent Auto 61.3 % (45-73); Platelet Count 282 X10*3/uL (160-400); Red Blood Count 4.51 X10*6/uL (4.20-5.50); Red Cell Distribution Width 14.6 % (11.0-16.0); White Blood Count 13.2 X10*3/uL (4.8-10.8)
[2024-07-18 15:21] LABS: Alanine Aminotransferase 14 U/L (0-31); Albumin Level 4.3 g/dL (3.5-5.0); Alkaline Phosphatase 73 U/L (39-117); Anion Gap 14 (12-20); Aspartate Amino Transferase 16 U/L (5-31); Bilirubin Direct 0.2 mg/dL (0.0-0.5); Bilirubin Total 0.5 mg/dL (0.0-1.0); Blood Urea Nitrogen 6 mg/dL (9-16); C Reactive Protein 2.22 mg/dL (< or = 0.50); Calcium 9.8 mg/dL (8.4-10.2); Carbon Dioxide 23 mmol/L (22-29); Chloride 108 mmol/L (96-108); Creatinine Clr Calc Pharmacy 87.7; Estimated Glomerular Filt Rate > 60; Glucose Random 89 mg/dL (60-115); HCG Quantitative < 2 mIU/mL; Potassium 4.1 mmol/L (3.3-5.1); Sodium 141 mmol/L (135-145); Total Protein 8.3 g/dL (6.5-8.0)
[2024-07-18] MEDS: Apixaban 5 MG TABLET 10 MG PO (16:02)
[2024-07-18 16:08] VITALS: BP 127/92; PULSE 68; RESP 18; TEMP 37; O2SAT 98
== END 2024-07-18 16:09 | disposition home or self-care (01) ==
PROVIDERS: Emergency Provider Emergency Medicine; PCP Internal Medicine
DX: I82.612 Acute embolism and thrombosis of superficial veins of left upper extremity (principal); Z79.899 Other long term (current) drug therapy
CPT/HCPCS: 36415; 80048; 80076; 84702; 85025; 86140; 93971; 99284

== ENCOUNTER 2024-07-23 14:31 | Outpatient (AMB) | payer OTHER, SELFPAY ==
[2024-07-23 14:32] VITALS: BP 118/76; PULSE 106; O2SAT 97; BMI 24.4
--- NOTE | 2024-07-23 14:32 | MHC.PC.OV ---
Vital Signs 07/23/24 14:32 Height 5 ft Weight 125 lb 2 oz BMI 24.4 BP 118/76 Blood Pressure Location Rt brachial Position Sitting Pulse 106 H Pulse Source Pulse Oximeter Pulse Oximetry (%) 97 Oxygen Delivery Method Room Air Intake Visit Reasons: [facility] Allergies No Known Allergies Allergy (Verified 07/23/24 14:36) Medication List - Last Reconciled 07/23/24 by Roddy Swift MD Aerjavieramblicha MV (inhalational spacing device) As directed NS albuterol sulfate 2.5 mg (3 mL) inhalation Q4-6H PRN apixaban (Eliquis DVT-PE Treat 30D Start) 5 mg PO BID etonogestrel (Nexplanon) subdermal Symbicort 160-4.5 mcg/actuation (budesonide-formoterol) 2 puffs inhalation Q12H NS Ventolin HFA 90 mcg/actuation (albuterol sulfate) 2 puffs inhalation Q6H PRN NS Tobacco use date assessed: 07/23/24 Dental Screening Dental Screen Date: 07/23/24 Did you have a dental visit in the last 12 months?: Yes Did you have a dental problem in the last 6 months where you did not have access to dental care?: No Was dental information given to patient?: Patient has dentist HPI [facility] HPI Details Patient is 29-year-old female who presented to [facility] Emergency room on of this month, patient verbalize to being healthy and athletic. She had Nexplanon device implanted in her left arm more than 3 years ago. She was also seen in another hospital for heat exhaustion May of this year, and was given intravenous in her left arm. Ten days ago she developed pain and swelling in her left arm, she went to [facility] and was diagnosed with superficial thrombophlebitis of the left basilic vein. July 14 she went to emergency room with the same complaint. Ultrasound was repeated that showed an occlusive thrombus of the left basilic vein both proximal and distal. Patient was advised to use aspirin and nonsteroidal anti-inflammatory medication for discomfort and was started on cephalexin. And then she was discharged Patient felt as if her symptoms are getting worse and so she presented to emergency room again on of this month. Case was discussed with vascular specialist Dr. Bloom, anticoagulation was agreed upon . Considering the length of thrombus section of the vein and its proximity to the deep vein system. Patient was started on apixaban and was discharged to see Dr. Bloom as an outpatient She was given 74 tablets of apixaban 5 mg to be taken b.i.d. after taking 10 mg b.i.d. for 7 days. Patient is complaining that she has been having chest pain when she takes a deep breath, and has been feeling shortness a breath She does have asthma which is controlled She is also tachycardic today EKG done today shows normal sinus rhythm 86 beats per minute I have ordered CT angio to rule out pulmonary embolism She is to continue with blood thinners as she is taking Hematology referral placed for further assistance. 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 Within 45 minutes spent in care of this patient [facility] Medical History Generalized anxiety disorder History of irritable bowel syndrome History of depression History of COVID-19 Mild intermittent asthma COVID-19 Surgical History No pertinent past surgical history Family History Mother No problems noted. Father No problems noted. Social History Housing: House Alcohol intake: never Patient Tobacco Use Status: Never used Tobacco e-Cigarette/Vaping Use: Never Used Second Hand Smoke Exposure: No Substance Use Type: Marijuana Advance Directives Date on File: 06/11/24 service: No Current occupational status: employed Cognitive needs: No Hearing needs: No Vision needs: Yes Questionnaire Thrive Questionnaire Date Thrive assessed: 06/11/24 AUDIT C Alcohol Use Questionnaire (AUDIT-C) 1. How often do you have a drink containing alcohol?: Monthly or less 2. How many drinks containing alcohol do you have on a typical day when you are drinking?: 1 or 2 3. How often do you have six or more drinks on one occasion?: Never Total Score: 1 Score Reviewed/Action Taken: Yes NIURKA-7 AMB Questionnaire NIURKA-7 Date NIURKA - 7 assessed: 06/11/24 Source: Developed by [employer], Geoff Fry and colleagues, with an educational allan from [employer]. Review of Systems Const Denies chills and Denies fever(s) ENT Denies epistaxis and Denies nasal discharge Resp Denies chest congestion, Denies cough and Denies hemoptysis GI Denies diarrhea and Denies nausea Skin/Breast Denies rash Neuro Reports no additional complaints Psych Reports no additional complaints Endo Reports no additional complaints Physical exam (Primary Care) Vital Signs: Last Vital Signs Pulse 106 H 07/23/24 14:32 BP 118/76 07/23/24 14:32 Pulse Ox 97 07/23/24 14:32 Oxygen Delivery Method Room Air 07/23/24 14:32 BMI result Body Mass Index 24.4 Tobacco/Smoking Status: Tobacco use Status Tobacco use date assessed 07/23/24 07/23/24 14:37 Patient Tobacco Use Status Never used Tobacco 07/23/24 14:33 Tobacco use type 01/10/22 10:12 e-Cigarette/Vaping Use Never Used 07/23/24 14:33 Thrive Assessment: Date of Thrive Assessment Date Thrive assessed 06/11/24 07/23/24 14:33 Const General: cooperative, comfortable and no acute distress Orientation/consciousness: patient oriented x3 HENMT Head: Yes normocephalic Eyes General: appearance normal, both eyes and all related structures Neck Neck: Yes supple Resp Effort & Inspection: normal respiratory effort, no cough and no stridor Cardio Rhythm: regular rhythm Heart sounds: S1 normal heart sound present and S2 normal heart sound present Skin General skin exam: turgor normal Neuro General: patient oriented x3, tone normal and moves all extremities Extrem Elbow/forearm/wrist images: 1. Hard vein visible Right lower extremity: no edema Left lower extremity: no edema Assessment and Plan Assessment & Plan (1) Blood clot in arm: Code(s): I74.2 - Embolism and thrombosis of arteries of the upper extremities (2) Chest pain: Code(s): R07.9 - Chest pain, unspecified Qualifiers: Chest pain type: unspecified Qualified Code(s): R07.9 - Chest pain, unspecified (3) Shortness of breath: Code(s): R06.02 - Shortness of breath (4) Tachycardia: Code(s): R00.0 - Tachycardia, unspecified Plan Patient is 29-year-old female who presented to [facility] Emergency room on of this month, patient verbalize to being healthy and athletic. She had Nexplanon device implanted in her left arm more than 3 years ago. She was also seen in another hospital for heat exhaustion May of this year, and was given intravenous in her left arm. Ten days ago she developed pain and swelling in her left arm, she went to [facility] and was diagnosed with superficial thrombophlebitis of the left basilic vein. July 14 she went to emergency room with the same complaint. Ultrasound was repeated that showed an occlusive thrombus of the left basilic vein both proximal and distal. Patient was advised to use aspirin and nonsteroidal anti-inflammatory medication for discomfort and was started on cephalexin. And then she was discharged Patient felt as if her symptoms are getting worse and so she presented to emergency room again on of this month. Case was discussed with vascular specialist Dr. Bloom, anticoagulation was agreed upon . Considering the length of thrombus section of the vein and its proximity to the deep vein system. Patient was started on apixaban and was discharged to see Dr. Bloom as an outpatient She was given 74 tablets of apixaban 5 mg to be taken b.i.d. after taking 10 mg b.i.d. for 7 days. Patient is complaining that she has been having chest pain when she takes a deep breath, and has been feeling shortness a breath She does have asthma which is controlled She is also tachycardic today EKG done today shows normal sinus rhythm 86 beats per minute I have ordered CT angio to rule out pulmonary embolism She is to continue with blood thinners as she is taking Hematology referral placed for further assistance. 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 Within 45 minutes spent in care of this patient Orders: Orders CT angio chest PE protocol Today I74.2 - Embolism and thrombosis of arteries of the upper extremities, R00.0 - Tachycardia, unspecified, R06.02 - Shortness of breath, R07.9 - Chest pain, unspecified Referrals Hematology & Oncology Referral I74.2 - Embolism and thrombosis of arteries of the upper extremities Coding Level of Care Code Est Pt Level 5 (16704) Diagnoses Blood clot in arm I74.2 Chest pain, unspecified type R07.9 Chest pain type: unspecified Shortness of breath R06.02 Tachycardia R00.0
== END 2024-07-23 15:36 | disposition home or self-care (01) ==
PROVIDERS: PCP Internal Medicine; Visit Provider Internal Medicine
DX: R07.9 Chest pain, unspecified (principal); I74.2 Embolism and thrombosis of arteries of the upper extremities; R06.02 Shortness of breath; R00.0 Tachycardia, unspecified
CPT/HCPCS: 99215

== ENCOUNTER 2024-07-24 14:34 | Outpatient (REF) | payer OTHER, SELFPAY ==
--- NOTE | ~2024-07-24 | CT_ITS ---
EXAMINATION: CT ANGIOGRAM CHEST CLINICAL INFORMATION: Thrombosis of upper extremity veins. COMPARISON: None available. TECHNIQUE: Multiple axial images were obtained through the chest after the administration of 65 mL of Omnipaque 350 intravenous contrast. Extensive vascular post-processing including two-dimensional and three-dimensional reformatted images were created and reviewed on an independent workstation. This CT examination was performed using dose optimization techniques as appropriate, variously including the following: *Automated exposure control *Adjustment of mA and/or kV according to patient size (this includes techniques or standardized protocols for targeted exams where dose is matched to indication/reason for exam; i.e. extremities or head) *Use of iterative reconstruction technique DLP: 106 mGy-cm FINDINGS: ANGIOGRAM: There is no pulmonary arterial filling defects. The thoracic aorta is patent as well as its major branch vessels. CHEST: Lungs: There are multifocal bilateral peribronchial groundglass opacities. There is diffuse bronchial wall thickening. Few pulmonary micronodules are nonspecific. Central airways are patent. Mediastinum: There is abnormal subcarinal soft tissue mass measuring 3.1 x 4.1 cm extending into the bilateral sade. This is incompletely evaluated due to the phase of contrast. Imaged thyroid gland is unremarkable. Heart size is normal. No pericardial effusion. Pleura: No pleural effusion. Axilla/Chest Wall: No axillary lymphadenopathy. UPPER ABDOMEN: The imaged portions of the upper abdominal solid viscera are unremarkable in appearance. OSSEOUS STRUCTURES: No destructive bone lesions. CT/CT angio chest PE protocol IMPRESSION: No evidence of pulmonary embolus. Abnormal subcarinal soft tissue mass measuring 3.1 x 4.1 cm extending into bilateral sade. Multifocal bilateral peribronchial groundglass opacities and diffuse bronchial wall thickening. An infectious or inflammatory process cannot be excluded. Electronically signed by: Arya Boykin MD 07/25/2024 11:43 AM EDT
[2024-07-24] MEDS: iohexoL 350 MG/ML 100 ML INFUS..BTL IV (16:04)
== END 2024-07-24 14:35 | disposition home or self-care (01) ==
LOC: HO.CT 14:34
PROVIDERS: PCP Internal Medicine; Visit Provider Internal Medicine
DX: I74.2 Embolism and thrombosis of arteries of the upper extremities (principal); R07.9 Chest pain, unspecified; R06.02 Shortness of breath; R00.0 Tachycardia, unspecified
CPT/HCPCS: 71275; Q9967

== ENCOUNTER 2024-07-31 11:09 | Emergency (ER) | payer OTHER, SELFPAY ==
--- NOTE | 2024-07-31 | ECG_ITS ---
Test Reason : chest pain Blood Pressure : / mmHG Vent. Rate : 067 BPM Atrial Rate : 067 BPM P-R Int : 166 ms QRS Dur : 086 ms QT Int : 384 ms P-R-T Axes : 055 060 049 degrees QTc Int : 405 ms Normal sinus rhythm with sinus arrhythmia Normal ECG No previous ECGs available Referred By: Generic ED Physician Electronically Signed By:ARLETH BALL
--- NOTE | ~2024-07-31 | XR_ITS ---
EXAMINATION: XR CHEST CLINICAL INFORMATION: Shortness of breath and chest pain, history of cold-induced asthma COMPARISON: Chest x-ray on in Dec 2021 TECHNIQUE: 2 views of the chest were obtained. FINDINGS: The cardiac silhouette is normal. There is mild diffuse bronchial wall thickening. There are no areas of consolidation. There are no pleural effusions or pneumothoraces. The bones and soft tissues are unremarkable for the patient's age. XR/XR chest 2V IMPRESSION: Bronchial wall thickening may be infectious and/or inflammatory in etiology. Electronically signed by: Lilian Man MD 07/31/2024 01:25 PM EDT
--- NOTE | ~2024-07-31 | CT_ITS ---
EXAMINATION: CT CHEST WITH CONTRAST CLINICAL INFORMATION: subcarinal mass noted on CTA please evaluate COMPARISON: CT angiography of the chest July 24, 2024 TECHNIQUE: Multidetector volumetric CT imaging of the chest was obtained after the administration of 50 mL of Omnipaque 350 intravenous contrast without immediate adverse reactions. Axial MIP volume rendering provided. Sagittal and coronal reformatted images were obtained. This CT examination was performed using dose optimization techniques as appropriate, variously including the following: *Automated exposure control *Adjustment of mA and/or kV according to patient size (this includes techniques or standardized protocols for targeted exams where dose is matched to indication/reason for exam; i.e. extremities or head) *Use of iterative reconstruction technique DLP: 175 mGy-cm FINDINGS: LUNGS: Improved aeration of lungs compared with prior study of July 24, 2024. No focal consolidation. No suspicious lung nodules. Diffuse mild bronchial wall thickening remains present but improved since prior study. No bronchiectasis. MEDIASTINUM: Subcarinal mass redemonstrated measuring about 3 x 4 cm. This mass extend into the sade bilaterally. There is bilateral hilar lymphadenopathy. Thyroid is normal. Heart size normal. No pericardial effusion. Great vessels unremarkable. PLEURA: There is no pleural effusion. No pleural mass or thickening. AXILLA: Small subcentimeter lymph nodes in the axilla bilaterally. No chest wall mass. UPPER ABDOMEN: Unremarkable OSSEOUS STRUCTURES: Unremarkable. CT/CT chest w IV con IMPRESSION: 1. Subcarinal mass redemonstrated. This mass extends into the sade bilaterally. There is bilateral hilar lymphadenopathy. 2. No acute abnormality of the chest. Fleischner guidelines were followed. Electronically signed by: Luis Dick MD 07/31/2024 07:49 PM EDT
[2024-07-31 11:21] VITALS: BP 140/83; PULSE 62; RESP 18; TEMP 36.6; O2SAT 100; BMI 24.2
--- NOTE | 2024-07-31 11:24 | ED.GENADULT ---
HPI - General Adult General Chief complaint: Chest Pain Stated complaint: CP-SOB Time Seen by Provider: 07/31/24 14:04 Source: patient and old records reviewed Mode of arrival: ambulatory Limitations: no limitations History of Present Illness ED Provider: SARAH CAZARES narrative: 29 yo female with PMH of asthma, recent LUE DVT s/p IV placement at outside facility on and compliant has been experiencing chest pain, cough, dyspnea and having to use her inhaler more since 07/17 no fevers, no travel, no sick contacts. Had CTA through her PCP on 07/24 showing no VTE, multifocal GGO and bronchial wall thickening, abnormal subcarinal mass 3.1 x 4.1cm that could not be evaluated. Patient here after completing azithromycin and notes she doesn't feel better still feels short of breath and still has chest tightness, her chest also hurts to touch. MD complaint: chest pain Onset (ago): week(s) (2) Location: chest Radiation: non-radiation Severity: moderate Quality: other Pain Consistency: intermittent Relieving factors: none Exacerbating factors: movement Associated symptoms: cough and shortness of breath Related Data Home Medications ?Medication ?Instructions ?Recorded ?Confirmed etonogestrel 68 mg subdermal subdermal 01/10/22 07/23/24 implant (Nexplanon) Previous Rx's ?Medication ?Instructions ?Recorded Aerochamber MV (inhalational #10 ea 01/10/22 spacing device) Symbicort 160 mcg-4.5 2 puff inhalation Q12H #10.2 grams 05/06/24 mcg/actuation HFA aerosol inhaler (budesonide-formoterol) albuterol sulfate 2.5 mg/3 mL 2.5 mg (3 mL) inhalation Q4-6H PRN 05/06/24 (0.083 %) solution for nebulization shortness of breath or wheezing #180 mL Ventolin HFA 90 mcg/actuation 2 puff inhalation Q6H PRN 07/09/24 aerosol inhaler (albuterol sulfate) shortness of breath or wheezing #18 grams apixaban 5 mg (74 tabs) tablets in 5 mg PO BID #74 ea 07/18/24 a dose pack ([employer] DVT-PE Treat 30D Start) azithromycin 250 mg tablet 250 mg PO ONCE 5 days #6 tabs 07/25/24 Allergies Allergy/AdvReac Type Severity Reaction Status Date / Time No Known Allergies Allergy Verified 07/31/24 11:25 Review of Systems Review of Systems: Constitutional : No Weight loss, No Fever, No Chills ENT/Mouth : No sore throat, No Rhinorrhea Eyes: No Eye Pain, No Swelling Cardiovascular : pos Chest Pain, pos SOB, pos Dyspnea on Exertion, No Orthopnea, No Edema, No Palpitations Respiratory : pos Cough, No Sputum Gastrointestinal : no Nausea, No Vomiting, No Diarrhea, No abdominal Pain, No Hematochezia, No Melena Genitourinary : No Dysuria, No Urinary Frequency Musculoskeletal : No joint pain, No Myalgias, No Joint Swelling Skin : No Skin Lesions, No rash Neuro : No Weakness, No Numbness, No Dizziness, No Headache Psych : No Anxiety/Panic, No Depression Heme/Lymph: No Bruising, No Lymphadenopathy Endocrine : No Polyuria, No Polydipsia All other systems reviewed and are negative ON LICENSE OF [facility] Past Medical History Attestation statement: The following information was validated with the patient. Source: old records reviewed Medical History Ground glass opacity present on imaging of lung Lung mass Generalized anxiety disorder History of irritable bowel syndrome History of depression History of COVID-19 Mild intermittent asthma COVID-19 Surgical History No pertinent past surgical history Family History Family History Mother No problems noted. Father No problems noted. Social History Social History Housing: House Alcohol intake: never Patient Tobacco Use Status: Never used Tobacco e-Cigarette/Vaping Use: Never Used Second Hand Smoke Exposure: No Use of substances other than those prescribed or required for medical reasons: No Substance Use Type: Marijuana Advance Directives: Yes Advance Directives on File: Yes Advance Directives Date on File: 06/11/24 Do you have a plan to hurt others: No Plan Patient : No service: No Current occupational status: employed Cognitive needs: No Hearing needs: No Vision needs: Yes Physical Exam ED Vital Signs: Vital Signs - 24 hr 07/31/24 11:21 07/31/24 13:57 07/31/24 15:07 Temperature 98 F 97.7 F Pulse Rate 62 52 71 Respiratory Rate 18 16 18 Blood Pressure 140/83 H 122/63 118/72 Pulse Oximetry 100 99 99 Oxygen Delivery Method Room Air Room Air Room Air BMI result Body Mass Index 24.2 Appearance: Alert. Oriented X3. No acute distress. Eyes: Pupils equal, round and reactive to light. ENT: Pharynx normal. Neck: Normal inspection. Neck supple. CVS: Normal heart rate and rhythm. Pulses normal. Chest wall: ttp along costochondral border Respiratory: No respiratory distress. Breath sounds normal. Abdomen: Soft and non-tender. Skin: Skin warm and dry. Normal skin color. Normal skin turgor. Extremities: No lower extremity edema. No calf ttp Neuro: Oriented X 3. No motor deficit. No sensory deficit. Course Course Course Narrative: This is a Rapid Medical Examination (RME) performed by Niels Singh PA-C in triage. Full HPI, ROS, assessment and treatment plan per primary provider in the Main ED. 29 yo female with history of recently diaganosed basicilic vein clot started on Eliquis, recently diagnosed PNA (and lung mass) s/p Zpack treatment (completed 2 dyas ago) CTA 07/24 who presents to the ER for 10/10 worsening chest pains and SOB along with productive cough. VSS in triage, speaking in complete sentences. Lungs clear throughout. Her PCP told her she had worsening anxiety due to all of these medical issues and recently resigned from her job due to this. She has been compliant with Eliquis. Plan: CXR, labs, EKG Reevaluation(s) Reevaluation #1: signed out to Dr. Tyler pending CT scan Medications Administered Discontinued Medications Generic Name Dose Route Start Last Admin Trade Name Freq PRN Reason Stop Dose Admin Methylprednisolone Sodium Succinate 60 mg 07/31/24 14:29 07/31/24 15:07 Methylprednisolone Sod Succ 125 Mg/2 Ml Vial IVPUSH 07/31/24 14:30 60 mg ONCE ONE Administration Medical Decision Making Medical Decision Making MDM Narrative: 29 yo female with PMH of asthma, recent LUE DVT s/p IV placement at outside facility on eliquis and compliant just had negative VTE study but GGO will obtain SARS panel, CT scan with contrast for mass. Could be viral bronchitis, inflammation - IV steroids ordered, mass, doubt VTE, or costochondritis Differential Diagnosis Differential Diagnoses: The differential diagnosis associated with the presentation includes viral bronchitis, inflammation - IV steroids ordered, mass, doubt VTE, or costochondritis Admission/Observation Consideration of admission/observation: Escalation of care including admission/observation considered Lab Data MDM Lab Attestation statement: I reviewed the patient's lab results. 07/31/24 11:58 07/31/24 11:58 Labs: Lab Results 07/31/24 Range/Units 11:58 WBC 9.1 (4.8-10.8) X10*3/uL RBC 4.52 (4.20-5.50) X10*6/uL Hgb 12.1 (12.0-16.0) g/dl Hct 36.6 L (37.0-47.0) % MCV 81.0 (80.0-98.0) fL MCH 26.8 L (27.0-33.0) pg MCHC 33.1 (31.0-35.0) g/dl RDW 14.6 (11.0-16.0) % Plt Count 355 D (160-400) X10*3/uL MPV 9.6 (9.4-12.3) fL Immature Gran % (Auto) 0.2 (0.0-0.4) % Neut % (Auto) 52.1 (45-73) % Lymph % (Auto) 32.2 (20-40) % [place] % (Auto) 6.2 (2-11) % Eos % (Auto) 8.9 H (0-4) % Baso % (Auto) 0.4 (0-2) % Lymph # (Auto) 2.9 (1.2-4.9) X10*3/uL [place] # (Auto) 0.6 (0.1-1.2) X10*3/uL Eos # (Auto) 0.8 H (0.0-0.4) X10*3/uL Baso # (Auto) 0.0 (0.0-0.2) X10*3/uL Abs Immat Gran (auto) 0.02 (0.00-0.03) X10*3/uL Absolute Neuts (auto) 4.7 (2.0-8.3) x10*3/uL Absolute Nucleated RBC 0.000 (0.0-0.012) X10*3/uL Nucleated RBC % (auto) 0.0 (0.0-0.2) /100WBC Sodium 139 (135-145) mmol/L Potassium 4.2 (3.3-5.1) mmol/L Chloride 108 (96-108) mmol/L Carbon Dioxide 24 (22-29) mmol/L Anion Gap 11 L (12-20) BUN 6 L (9-16) mg/dL Creatinine 0.78 (0.5-1.4) mg/dL Estim Creat Clear Calc 85.2 Estimated GFR > 60 Random Glucose 83 (60-115) mg/dL Calcium 9.7 (8.4-10.2) mg/dL Magnesium 2.1 (1.6-2.6) mg/dL Total Bilirubin 0.6 (0.0-1.0) mg/dL Direct Bilirubin 0.2 (0.0-0.5) mg/dL AST 17 (5-31) U/L ALT 16 (0-31) U/L Alkaline Phosphatase 74 (39-117) U/L Troponin I High Sens < 2.7 (<3.5-17.0) ng/L Total Protein 8.1 H (6.5-8.0) g/dL Albumin 4.1 (3.5-5.0) g/dL Beta HCG, Quant < 2 mIU/mL Independent Interpretation I performed an independent interpretation of an: CT Scan Independent Historian Clinical information obtained from an independent historian. History obtained from or confirmed by: Spouse External Record Review External record reviewed: Inpatient record, Outpatient record and Prior outpatient labs Discharge Plan Discharge Clinical Impression: Acute costochondritis Patient Disposition: Still a Patient Prescriptions: No Action albuterol sulfate [Ventolin HFA] 90 mcg/actuation HFA aerosol inhaler 2 puff inhalation Q6H PRN (Reason: shortness of breath or wheezing) Qty: 18 5RF azithromycin 250 mg tablet 250 mg PO ONCE 5 Days Qty: 6 0RF Rx Instructions: Take 2 tablets today then 1 daily Eliquis DVT-PE Treat 30D Start 5 mg (74 tabs) tablets,dose pack 5 mg PO BID Qty: 74 0RF Rx Instructions: 10 mg p.o. b.i.d. x7 days then 5 mg p.o. b.i.d. daily Nexplanon 68 mg implant subdermal (DME) Aerochamber MV Spacer See Rx Instructions .Route Qty: 10 0RF Rx Instructions: As directed albuterol sulfate 2.5 mg /3 mL (0.083 %) solution for nebulization 2.5 mg inhalation Q4-6H PRN (Reason: shortness of breath or wheezing) Qty: 180 0RF budesonide-formoterol [Symbicort] 160-4.5 mcg/actuation HFA aerosol inhaler 2 puff inhalation Q12H Qty: 10.2 6RF Rx Instructions: Rinse mouth after use Print Language: Singaporean
[2024-07-31 12:02] LABS: MANUAL DIFF FLAG NO
[2024-07-31 12:04] LABS: Basophils Percent Auto 0.4 % (0-2); Eosinophils Absolute Auto 0.8 X10*3/uL (0.0-0.4); Eosinophils Percent Auto 8.9 % (0-4); Hematocrit 36.6 % (37.0-47.0); Hemoglobin 12.1 g/dl (12.0-16.0); Imm Gran Abs Auto 0.02 X10*3/uL (0.00-0.03); Imm Gran Pct Auto 0.2 % (0.0-0.4); Lymphocytes Absolute Auto 2.9 X10*3/uL (1.2-4.9); Lymphocytes Percent Auto 32.2 % (20-40); Mean Corpuscular HGB Conc 33.1 g/dl (31.0-35.0); Mean Corpuscular Hemoglobin 26.8 pg (27.0-33.0); Mean Platelet Volume 9.6 fL (9.4-12.3); Monocytes Absolute Auto 0.6 X10*3/uL (0.1-1.2); Monocytes Percent Auto 6.2 % (2-11); Neutrophils Absolute Auto 4.7 x10*3/uL (2.0-8.3); Neutrophils Percent Auto 52.1 % (45-73); Platelet Count 355 X10*3/uL (160-400); Red Blood Count 4.52 X10*6/uL (4.20-5.50); Red Cell Distribution Width 14.6 % (11.0-16.0); White Blood Count 9.1 X10*3/uL (4.8-10.8)
[2024-07-31 12:20] LABS: Alanine Aminotransferase 16 U/L (0-31); Albumin Level 4.1 g/dL (3.5-5.0); Alkaline Phosphatase 74 U/L (39-117); Anion Gap 11 (12-20); Aspartate Amino Transferase 17 U/L (5-31); Bilirubin Direct 0.2 mg/dL (0.0-0.5); Bilirubin Total 0.6 mg/dL (0.0-1.0); Blood Urea Nitrogen 6 mg/dL (9-16); Calcium 9.7 mg/dL (8.4-10.2); Carbon Dioxide 24 mmol/L (22-29); Chloride 108 mmol/L (96-108); Creatinine Clr Calc Pharmacy 85.2; Estimated Glomerular Filt Rate > 60; Glucose Random 83 mg/dL (60-115); Magnesium 2.1 mg/dL (1.6-2.6); Potassium 4.2 mmol/L (3.3-5.1); Sodium 139 mmol/L (135-145); Total Protein 8.1 g/dL (6.5-8.0)
[2024-07-31 12:26] LABS: Troponin-I High Sensitivity < 2.7 ng/L (<3.5-17.0)
[2024-07-31 13:57] VITALS: BP 122/63; PULSE 52; RESP 16; TEMP 36.5; O2SAT 99
[2024-07-31 15:07] VITALS: BP 118/72; PULSE 71; RESP 18; O2SAT 99
[2024-07-31] MEDS: methylPREDNISolone Sod Succ 125 MG/2 ML VIAL 60 MG IVPUSH (15:07)
[2024-07-31 15:54] LABS: HCG Quantitative < 2 mIU/mL
[2024-07-31 16:11] LABS: Influenza A PCR NEGATIVE (Negative); Influenza B PCR NEGATIVE (Negative); Resp Syncy Virus RNA Qual PCR NEGATIVE (Negative); SARS COV2 PCR INHOUSE NEGATIVE (Negative)
[2024-07-31] MEDS: iohexoL 350 MG/ML 100 ML INFUS..BTL 65 ML IV (17:34)
--- NOTE | 2024-07-31 17:51 | PC.NURSE ---
no complaints. awaits CT reading.
[2024-07-31 17:59] VITALS: BP 121/59; PULSE 66; RESP 16; TEMP 37; O2SAT 99
[2024-07-31 19:52] VITALS: BP 127/70; PULSE 74; RESP 18; TEMP 36.8; O2SAT 98
[2024-07-31 21:42] VITALS: BP 127/70; PULSE 74; RESP 18; TEMP 36.8; O2SAT 98
== END 2024-07-31 21:44 | disposition home or self-care (01) ==
PROVIDERS: Emergency Medicine; Physician Assistant; Emergency Provider Emergency Medicine; PCP Internal Medicine
DX: M94.0 Chondrocostal junction syndrome [Tietze] (principal); J98.59 Other diseases of mediastinum, not elsewhere classified; R05.9 Cough, unspecified; R06.02 Shortness of breath; Z03.818 Encounter for observation for suspected exposure to other biological agents ruled out; Z86.718 Personal history of other venous thrombosis and embolism; Z79.01 Long term (current) use of anticoagulants; J45.909 Unspecified asthma, uncomplicated; Z87.01 Personal history of pneumonia (recurrent)
CPT/HCPCS: 0241U; 36415; 71046; 71260; 80048; 80076; 83735; 84484; 84702; 85025; 93005; 96374; 99284; 99285; J2919; Q9967

== ENCOUNTER 2024-08-05 10:03 | Outpatient (AMB) | payer OTHER, SELFPAY ==
--- NOTE | 2024-08-05 10:06 | MHC.PC.OV ---
Vital Signs 08/05/24 10:07 Height 5 ft Weight 128 lb BMI 25.0 BP 140/90 H Blood Pressure Location Rt brachial Position Sitting Pulse 101 H Pulse Source Pulse Oximeter Pulse Oximetry (%) 98 Oxygen Delivery Method Room Air Intake Visit Reasons: [facility] ER breathing concerns Intake Note: Patient here for HDF she was in for blood clot in left arm, difficulty breathing. Allergies No Known Allergies Allergy (Verified 08/10/24 22:32) Medication List - Last Reconciled 08/05/24 by Rose Barba MD Aerochamber MV (inhalational spacing device) As directed NS albuterol sulfate 2.5 mg (3 mL) inhalation Q4-6H PRN albuterol sulfate 90 mcg/actuation 2 puffs inhalation Q4-6H PRN apixaban (Eliquis DVT-PE Treat 30D Start) 5 mg PO BID etonogestrel (Nexplanon) subdermal levofloxacin 500 mg PO DAILY prednisone 50 mg PO DAILY Symbicort 160-4.5 mcg/actuation (budesonide-formoterol) 2 puffs inhalation Q12H NS Tobacco use date assessed: 07/23/24 Dental Screening Dental Screen Date: 07/23/24 HPI [facility] ER breathing concerns HPI Details 29-year-old lady with recently diagnosed basilic vein clot started on Eliquis, here today for follow-up after recent hospital admission at [facility]. She was diagnosed with pneumonia (and lung mass) s/p Zpack treatment (completed 2 dyas ago) CTA 07/24 and went again to the ER 09/04 complaining of worsening chest pains and SOB along with productive cough. VSS in triage, speaking in complete sentences. Lungs clear throughout. She was prescribed levofloxacin 500 mg taken once a day, prednisone 50 mg daily and started on Symbicort inhaler and has albuterol inhaler to use as needed for episodes of wheezing. Patient states that she is Feeling better, breathing back to normal, no further coughing.. She has an appointment with Pulmonary tomorrow to go over results of her CT of chest which showed presence of ground-glass opacities and patient states that she also an appointment with the thoracic surgeon and An on for further evaluation of the lung mass seen on CT scan . She has a clot in her left arm, currently on Eliquis and has an appointment with Hematology for further evaluation of possible clotting disorder [facility] Medical History Ground glass opacity present on imaging of lung Lung mass Generalized anxiety disorder History of irritable bowel syndrome History of depression History of COVID-19 Mild intermittent asthma COVID-19 Surgical History No pertinent past surgical history Family History Mother No problems noted. Father No problems noted. Social History Housing: House Alcohol intake: never Patient Tobacco Use Status: Never used Tobacco e-Cigarette/Vaping Use: Never Used Second Hand Smoke Exposure: No Substance Use Type: Marijuana Advance Directives Date on File: 06/11/24 service: No Current occupational status: employed Cognitive needs: No Hearing needs: No Vision needs: Yes Questionnaire PHQ-9 Over the last 2 weeks, how often have you been bothered by any of the following problems? 1. Little interest or pleasure in doing things: not at all 2. Feeling down, depressed, or hopeless: not at all 3. Trouble falling or staying asleep, or sleeping too much: several days 4. Feeling tired or having little energy: several days 5. Poor appetite or overeating: several days 6. Feeling bad about yourself - or that you are a failure or have let yourself or your family down: not at all 7. Trouble concentrating on things, such as reading the newspaper or watching television: not at all 8. Moving or speaking so slowly that other people could have noticed. Or the opposite - being so fidgety or restless that you have been moving around a lot more than usual: not at all 9. Thoughts that you would be better off or of hurting yourself in some way: not at all Total score: 3 Depression Screening Interpretation: Negative Depression Screening Done: Yes 28716 - PHQ-9 Billing: Yes Source: Developed by Drs. Duke Mayberry, Sagrario Cordova, Geoff Fry and colleagues, with an educational allan from [employer]. Thrive Questionnaire Date Thrive assessed: 06/11/24 I am a: Patient What is your living situation today?: I have a place to live, but I am worried about losing it in the future Within the past 12 months, did the food you bought not last and you didn't have the money to get more?: Sometimes True Within the past 12 months, did you worry whether your food would run out before you got money to buy more?: Often true Do you have trouble paying for medicines?: No Do you have trouble getting transportation to medical appointments?: No Do you have trouble paying your heating and electricity bill?: Yes Do you have trouble taking care of your child, family member or friend?: No Do you have trouble with day-to-day activities such as bathing, preparing meals, shopping, managing finances, etc.?: Yes Are you currently unemployed and looking for a job?: No Are you interested in more education?: Yes Please select the resources that you would like help with: Housing/Retirement, Food and Utilities Currently or been in a relationship where the following occur: No concerns reported THRIVE Score: 4 AUDIT C Alcohol Use Questionnaire (AUDIT-C) 1. How often do you have a drink containing alcohol?: Monthly or less 2. How many drinks containing alcohol do you have on a typical day when you are drinking?: 1 or 2 3. How often do you have six or more drinks on one occasion?: Never Total Score: 1 NIURKA-7 AMB Questionnaire NIURKA-7 Date NIURKA - 7 assessed: 06/11/24 Feeling nervous, anxious, or on edge: 1 = Several days Not being able to stop or control worryin = Several days Worrying too much about different things: 1 = Several days Trouble relaxin = Several days Being so restless that it is hard to sit still: 0 = Not at all Becoming easily annoyed or irritable: 1 = Several days Feeling afraid as if something awful might happen: 0 = Not at all Total NIURKA-7 score (0-4 normal; 5-9 mild; 10-14 moderate; 15-21 severe): 5 Source: Developed by Drs. Duke Mayberry, Sagrario Cordova, Geoff Fry and colleagues, with an educational allan from [employer]. NIURKA-7 Assessment Billing NIURKA-7 Assessment Tool: NIURKA-7 Assessment 70240 Review of Systems Const Reports weight loss Eyes Reports no additional complaints ENT Reports no additional complaints Card Reports dyspnea on exertion Resp Denies cough, Denies excessive phlegm production, Reports dyspnea on exertion and Denies wheezing GI Reports no additional complaints Musc Reports stiffness Aller/Immun Denies wheezing Physical exam (Primary Care) Vital Signs: Last Vital Signs Pulse 101 H 08/05/24 10:07 BP 140/90 H 08/05/24 10:07 Pulse Ox 98 08/05/24 10:07 Oxygen Delivery Method Room Air 08/05/24 10:07 BMI result Body Mass Index 25.0 Tobacco/Smoking Status: Tobacco use Status Tobacco use date assessed 07/23/24 08/05/24 10:15 Patient Tobacco Use Status Never used Tobacco 08/05/24 10:15 Tobacco use type 07/29/24 14:03 e-Cigarette/Vaping Use Never Used 08/05/24 10:15 PHQ-9: PHQ-9 Score PHQ-9: Total score 3 08/05/24 10:36 Depression Screening Interpretation: Negative Thrive Assessment: Date of Thrive Assessment Date Thrive assessed 06/11/24 08/05/24 10:15 Currently or been in a relationship where the following occur: No concerns reported Const General: cooperative, comfortable and no acute distress Orientation/consciousness: patient oriented x3 HENMT Head: Yes normocephalic Eyes General: appearance normal, both eyes and all related structures Neck Neck: Yes supple Resp Effort & Inspection: normal respiratory effort, no cough and no stridor Cardio Rhythm: regular rhythm Heart sounds: S1 normal heart sound present and S2 normal heart sound present Skin General skin exam: turgor normal Neuro General: patient oriented x3, tone normal and moves all extremities Assessment and Plan Assessment & Plan (1) Lung mass: Code(s): R91.8 - Other nonspecific abnormal finding of lung field Plan: has appointment with Thoracic surgeon in [facility] on for further evaluation of the lung mass seen on CT scan . (2) Blood clot in arm: Code(s): I74.2 - Embolism and thrombosis of arteries of the upper extremities Plan: Continue apixaban (3) Mild intermittent asthma: Code(s): J45.20 - Mild intermittent asthma, uncomplicated Qualifiers: Asthma complication type: uncomplicated Qualified Code(s): J45.20 - Mild intermittent asthma, uncomplicated Plan: Continue with albuterol inhaler using AeroChamber with it, as needed for episodes of bronchospasm and wheezing, continue Symbicort 2 puffs twice a day, Coding Level of Care Code Est Pt Level 4 (06395) Diagnoses Lung mass R91.8 Blood clot in arm I74.2 Mild intermittent asthma without complication J45.20 Asthma complication type: uncomplicated Additional Codes NIURKA-7 Assessment Billing - NIURKA-7 Assessment Tool: NIURKA-7 Assessment [id number] ([id number])
[2024-08-05 10:07] VITALS: BP 140/90; PULSE 101; O2SAT 98; BMI 25.0
== END 2024-08-05 11:17 | disposition home or self-care (01) ==
PROVIDERS: PCP Internal Medicine; Visit Provider Internal Medicine
DX: R91.8 Other nonspecific abnormal finding of lung field (principal); I74.2 Embolism and thrombosis of arteries of the upper extremities; J45.20 Mild intermittent asthma, uncomplicated
CPT/HCPCS: 99214

== ENCOUNTER 2024-08-06 13:35 | Outpatient (AMB) | payer OTHER, SELFPAY ==
[2024-08-06 13:46] VITALS: BP 102/62; PULSE 82; O2SAT 99; BMI 25.4
--- NOTE | 2024-08-06 13:46 | MHC.OFFVIS ---
Vital Signs 08/06/24 13:46 Height 5 ft Weight 130 lb BMI 25.4 BP 102/62 Blood Pressure Location Rt brachial Position Sitting Pulse 82 Pulse Source Doppler Pulse Oximetry (%) 99 Oxygen Delivery Method Room Air Intake Visit Reasons: Abnormal CT scan Allergies No Known Allergies Allergy (Verified 08/06/24 13:48) HPI HPI Abnormal CT scan: Details: 29-year-old lady, nonsmoker of tobacco products, rarely uses marijuana, with underlying history of asthma since childhood with hiatus in late teens and reoccurrence of symptoms over the last few years. Patient with recent diagnosis of left upper extremity DVT currently on apixaban. Has been complaining of dyspnea and had CT angio chest that demonstrated 3 cm subcarinal mass. No family history of of malignancies or rheumatologic/autoimmune diseases. Patient does have underlying environmental allergies, but no recent allergy testing. She has been using Symbicort and albuterol MDI to control her asthma symptoms. [facility] Medical History Ground glass opacity present on imaging of lung Lung mass Generalized anxiety disorder History of irritable bowel syndrome History of depression History of COVID-19 Mild intermittent asthma COVID-19 Surgical History No pertinent past surgical history Family History Mother No problems noted. Father No problems noted. Social History Housing: House Alcohol intake: never Patient Tobacco Use Status: Never used Tobacco e-Cigarette/Vaping Use: Never Used Second Hand Smoke Exposure: No Substance Use Type: Marijuana Advance Directives Date on File: 06/11/24 service: No Current occupational status: employed Cognitive needs: No Hearing needs: No Vision needs: Yes Review of Systems Const Reports weight loss Card Reports dyspnea on exertion Resp Denies cough, Denies excessive phlegm production, Reports dyspnea on exertion and Denies wheezing Aller/Immun Denies wheezing Physical Exam Vital Signs: Last Vital Signs Pulse 82 08/06/24 13:46 BP 102/62 08/06/24 13:46 Pulse Ox 99 08/06/24 13:46 Oxygen Delivery Method Room Air 08/06/24 13:46 BMI result Body Mass Index 25.4 Const General: no acute distress and alert Nutritional Appearance: not obese Orientation/consciousness: Other orientation findings ( oriented) HEENT Head: Yes atraumatic Eyes General: appearance normal, both eyes and all related structures Sclerae: sclerae normal EOM: EOMs intact bilaterally Neck Neck: Yes supple Lymphatic: no lymphadenopathy noted Resp Effort & Inspection: normal respiratory effort and no use of accessory muscles Auscultation: clear to auscultation bilaterally Cardio Rate: regular rate Rhythm: regular rhythm Heart sounds: no gallops, no murmurs and no rubs Skin General skin exam: other ( warm) Extrem General: No clubbing, No cyanosis and No edema Assessment & Plan Assessment & Plan (1) Lung mass: Code(s): R91.8 - Other nonspecific abnormal finding of lung field Category: Medical Plan: Multiple etiologies possible, will plan for EBUS biopsy. (2) Asthma: Code(s): J45.909 - Unspecified asthma, uncomplicated Category: Medical Plan: Continue Symbicort and albuterol MDI. Will obtain PFT after EBUS. (3) Environmental allergies: Code(s): Z91.09 - Other allergy status, other than to drugs and biological substances Category: Medical Plan: With seasonal exacerbations. Will obtain IgE level, and RAST panel after initial evaluation of subcarinal mass. Coding Level of Care Code New Pt Level 4 (62507) Diagnoses Lung mass R91.8 Asthma J45.909 Environmental allergies Z91.09
== END 2024-08-06 14:22 | disposition home or self-care (01) ==
PROVIDERS: PCP Internal Medicine; Referring Provider Internal Medicine; Visit Provider Internal Medicine Pulmonary Disease
DX: R91.8 Other nonspecific abnormal finding of lung field (principal); J45.909 Unspecified asthma, uncomplicated; Z91.09 Other allergy status, other than to drugs and biological substances
CPT/HCPCS: 99204

== ENCOUNTER → 2024-08-06 13:35 | Outpatient (BNVA) | payer OTHER, SELFPAY | PROVIDERS: PCP Internal Medicine; Referring Provider Internal Medicine; Visit Provider Internal Medicine Pulmonary Disease | DX: J45.909 Unspecified asthma, uncomplicated (principal); R91.8 Other nonspecific abnormal finding of lung field; Z91.09 Other allergy status, other than to drugs and biological substances; Z79.899 Other long term (current) drug therapy | CPT/HCPCS: 99202 ==

== ENCOUNTER 2024-08-15 11:25 | Day surgery (SDC) | payer OTHER, SELFPAY ==
--- NOTE | 2024-08-13 11:50 | P.CONAN_ITS ---
Documented by User: Eboni Rosa NP 08/13/24 11:52 HPI - Anesthesia Eval Consult details Narrative: 29yo F for Endoscopic Bronchial Ultrasound Eliquis for upper extremity DVT (s/p IV insertion) - PE ruled out Per thoracic note, improvement in respiratory symptoms and imaging with abx/prednisone PMFSH Active Problems Active Problems: All Active Problems Environmental allergies (Acute) Ground glass opacity present on imaging of lung (Acute) Lung mass (Acute) Tachycardia (Acute) Shortness of breath (Acute) Chest pain (Acute) Blood clot in arm (Acute) Generalized anxiety disorder (Acute) Mild intermittent asthma (Acute) Seasonal allergies (Acute) Past Medical History Medical History Ground glass opacity present on imaging of lung Lung mass Generalized anxiety disorder History of irritable bowel syndrome History of depression History of COVID-19 Mild intermittent asthma COVID-19 Family History Family History Mother No problems noted. Father No problems noted. Surgical History Surgical History No pertinent past surgical history Social History Social History Housing: House Alcohol intake: never Patient Tobacco Use Status: Never used Tobacco e-Cigarette/Vaping Use: Never Used Second Hand Smoke Exposure: No Use of substances other than those prescribed or required for medical reasons: Yes Substance Use Type: Marijuana Substance Use Type Other:: Edibles no smoking for 4 months. Substance Use Frequency: Daily Have you been hit, kicked, punched, or otherwise hurt by someone within the past year? If so, by whom?: No Advance Directives: No Advance Directives Information Provided: Yes Advance Directives Date on File: 06/11/24 Recently lost weight without trying: No Nutrition Risks: No Nutritional Risk service: No Current occupational status: employed Cognitive needs: No Hearing needs: No Vision needs: Yes Meds Allergies Allergy/AdvReac Type Severity Reaction Status Date / Time No Known Allergies Allergy Verified 08/10/24 22:32 Home Medications ?Medication ?Instructions ?Recorded ?Confirmed ?Last Taken ?Type etonogestrel 68 mg subdermal subdermal 01/10/22 07/23/24 Unknown History implant (Nexplanon) Exam Pertinent Lab Results Pertinent Lab Results: Laboratory Tests 07/31/24 11:58 WBC 9.1 Hgb 12.1 Hct 36.6 L Plt Count 355 D Sodium 139 Potassium 4.2 Chloride 108 Carbon Dioxide 24 BUN 6 L Creatinine 0.78 Narrative Narrative: EKG 07/2024 Vent. Rate : 067 BPM Atrial Rate : 067 BPM P-R Int : 166 ms QRS Dur : 086 ms QT Int : 384 ms P-R-T Axes : 055 060 049 degrees QTc Int : 405 ms Normal sinus rhythm with sinus arrhythmia Normal ECG No previous ECGs available Assessment and Plan Assessment Anesthesia Assessment: Chart Reviewed Documented by User: Alyse Davis MD 08/15/24 12:18 [facility] Past Medical History Medical History Ground glass opacity present on imaging of lung Lung mass Generalized anxiety disorder History of irritable bowel syndrome History of depression History of COVID-19 Mild intermittent asthma COVID-19 Family History Family History Mother No problems noted. Father No problems noted. Family history of problems with anesthesia: No Surgical History Surgical History No pertinent past surgical history History of Problems with Anesthesia: No Social History Social History Housing: House Alcohol intake: never Patient Tobacco Use Status: Never used Tobacco e-Cigarette/Vaping Use: Never Used Second Hand Smoke Exposure: No Use of substances other than those prescribed or required for medical reasons: Yes Substance Use Type: Marijuana Substance Use Type Other:: Edibles no smoking for 4 months. Substance Use Frequency: Daily Have you been hit, kicked, punched, or otherwise hurt by someone within the past year? If so, by whom?: No Advance Directives: No Advance Directives Information Provided: Yes Advance Directives Date on File: 06/11/24 Recently lost weight without trying: No Nutrition Risks: No Nutritional Risk service: No Current occupational status: employed Cognitive needs: No Hearing needs: No Vision needs: Yes Meds Allergies Allergy/AdvReac Type Severity Reaction Status Date / Time No Known Allergies Allergy Verified 08/10/24 22:32 Home Medications ?Medication ?Instructions ?Recorded ?Confirmed ?Last Taken ?Type etonogestrel 68 mg subdermal subdermal 01/10/22 07/23/24 Unknown History implant (Nexplanon) Exam Airway Heart: rrr Lungs: cta Assessment and Plan Assessment Anesthesia Assessment: Anesthesia Plan Discussed Final Anesthetic Review Family History of Problems with Anesthesia: No History of Problems with Anesthesia: No NPO: Yes ASA Class: III Final Preanesthetic Review: No Changes in Pt Med Stat, Meds/Allgs Chart Reviewed, Consent Obtained/Reviewed and Anes Risks/Benef Reviewed Patient Risk: Intermediate Procedure Risk: Low Anesthetic Plan Anesthetic Plan: GA Disposition: Standard PACU
[2024-08-15] VITALS (13 sets, daily range): BP systolic 107–128; BP diastolic 68–81; PULSE 57–88; RESP 16–24; TEMP 36.1–36.2; O2SAT 97–99; BMI 26.4
--- NOTE | 2024-08-15 11:51 | MHC.SHP ---
Pre-Procedural Eval Section A - 24 Hr Update-Section A only Date of Service: 08/15/24 The patient is an INPATIENT: No Changes since office visit: No Cold of Flu in the past 2 weeks, No New Medical Problems, No Changes in Medication and No Patient answered all questions Section B - Complete if H&P > 30 days Chief Complaint: Other diseases of mediastinum, not elsewhere class Allergies: Allergies Allergy/AdvReac Type Severity Reaction Status Date / Time No Known Allergies Allergy Verified 08/10/24 22:32 Plan Diagnosis/Plan: Unchanged I have reviewed the history and physical and performed a pertinent physical examination on my patient. No changes have occurred unless specified. Time Spent With Patient Time: Total time managing care of this patient today ____ minutes.
[2024-08-15 11:58] LABS: UPreg QC Valid YES; Urine Pregnancy NEGATIVE (NEGATIVE)
[2024-08-15] MEDS: Lactated Ringers 1,000 ML 100 ML IVCONT (12:01)
--- NOTE | 2024-08-15 14:30 | P.BOP_ITS ---
Brief Operative Note Date of Service: 08/15/24 Pre-op diagnosis: Mediastinal lymphadenopathy Post-op diagnosis: same Procedure: EBUS bronchoscope advanced through the ET tube with patient intubated for procedure and through tracheobronchial tree. Normal bilateral mucosa noted with no endobronchial lesions. Thereafter, subcarinal lymph node station 7 EBUS guided biopsy obtained with 6 separate passes. Samples evaluated by intraprocedural pathology and presence of lymphocytes noted. Samples were sent for further pathologic testing. Patient tolerated procedure well and was transferred to PACU in stable condition. Surgeon: Rafael Perez MD Anesthesia: GETA Was an [employer] used for this Procedure?: No Estimated blood loss (mL): 0 Condition: stable Disposition: PACU
[2024-08-15] MEDS: fentaNYL citrate/PF 100 MCG/2 ML VIAL 25 MCG IVPUSH (14:50)
[2024-08-15] MEDS: LORazepam 2 MG/ML VIAL 1 MG IVPUSH (14:50)
--- NOTE | 2024-08-15 17:01 | PC.NURSE ---
As confirmed with md. Perez pt. ok to take elideborahis tomorrow as called and spoke with patient post op.
== END 2024-08-15 16:27 | disposition home or self-care (01) ==
PROVIDERS: Nurse Practitioner; Pathology Anatomic Pathology & Clinical Pathology; PCP Internal Medicine; Visit Provider Internal Medicine Pulmonary Disease
PROC: (CPT 31652; principal; 2024-08-15 13:30)
DX: J98.59 Other diseases of mediastinum, not elsewhere classified (principal); R91.8 Other nonspecific abnormal finding of lung field; R59.0 Localized enlarged lymph nodes; J45.20 Mild intermittent asthma, uncomplicated; Z91.09 Other allergy status, other than to drugs and biological substances; I82.622 Acute embolism and thrombosis of deep veins of left upper extremity; F32.A Depression, unspecified; F41.1 Generalized anxiety disorder; Z79.01 Long term (current) use of anticoagulants; Z79.51 Long term (current) use of inhaled steroids; R00.0 Tachycardia, unspecified
CPT/HCPCS: 31652; 36415; 81025; 88172; 88173; 88177; 88184; 88185; 88305; 88341; 88342; J0171; J1200; J1630; J2060; J2250; J2704; J3010

== ENCOUNTER → 2024-08-15 11:25 | Outpatient (BNV) | payer OTHER, SELFPAY | PROVIDERS: PCP Internal Medicine; Visit Provider Internal Medicine Pulmonary Disease | DX: R59.0 Localized enlarged lymph nodes (principal); J98.59 Other diseases of mediastinum, not elsewhere classified | CPT/HCPCS: 31652 ==

== ENCOUNTER → 2024-08-19 08:24 | Outpatient (BNV) | payer OTHER, SELFPAY | PROVIDERS: PCP Internal Medicine; Visit Provider Internal Medicine Medical Oncology | DX: Z86.718 Personal history of other venous thrombosis and embolism (principal); R91.8 Other nonspecific abnormal finding of lung field | CPT/HCPCS: 99204; 99213 ==

== ENCOUNTER 2024-08-22 10:14 | Outpatient (AMB) | payer OTHER, SELFPAY ==
[2024-08-22 10:17] VITALS: BP 104/62; PULSE 86; TEMP 36.9; O2SAT 95
--- NOTE | 2024-08-22 10:17 | MHC.OFFVIS ---
Vital Signs 08/22/24 10:17 Height 5 ft BP 104/62 Blood Pressure Location Lt brachial Position Sitting Pulse 86 Pulse Source Doppler Temp 98.4 F Temp Source Temporal Artery Scan Pulse Oximetry (%) 95 Intake Visit Reasons: S/p ebus Allergies No Known Allergies Allergy (Verified 08/19/24 08:31) HPI HPI S/p ebus: Details: 29-year-old lady, nonsmoker of tobacco products, rarely uses marijuana, with underlying history of asthma since childhood with hiatus in late teens and reoccurrence of symptoms over the last few years. Patient with recent diagnosis of left upper extremity DVT currently on apixaban. Has been complaining of dyspnea and had CT angio chest that demonstrated 3 cm subcarinal mass. No family history of of malignancies or rheumatologic/autoimmune diseases. Patient does have underlying environmental allergies, but no recent allergy testing. She has been using Symbicort and albuterol MDI to control her asthma symptoms. after the last office visit patient had endobronchial ultrasound biopsy with station 7 that demonstrated lymphoid tissue and no malignancy. Patient continues to complain of compressive symptoms. She also has an ongoing asthma exacerbation being treated by prednisone taper and a course of Levaquin. [facility] Medical History (Updated 08/22/24 @ 10:48 by Rafael Perez MD) Ground glass opacity present on imaging of lung Lung mass Generalized anxiety disorder History of irritable bowel syndrome History of depression History of COVID-19 Mild intermittent asthma COVID-19 Surgical History (Updated 08/19/24 @ 08:59 by Brian Rogers MD) S/P bronchoscopy with biopsy No pertinent past surgical history Family History Mother No problems noted. Father No problems noted. Social History (Updated 08/19/24 @ 08:31 by Kelin Maxwell) Household Members: Significant Other Housing: House Alcohol intake: never Patient Tobacco Use Status: Never used Tobacco e-Cigarette/Vaping Use: Never Used Second Hand Smoke Exposure: No Substance Use Type: Marijuana Advance Directives Date on File: 06/11/24 service: No Current occupational status: employed Cognitive needs: No Hearing needs: No Vision needs: Yes Review of Systems Const Denies daytime sleepiness, Denies excessive sweating, Denies fatigue, Denies fever(s), Denies lethargy, Denies malaise, Denies night sweats, Denies snoring and Denies weight loss Eyes Denies blurry vision and Denies itchy eyes ENT Denies nasal congestion, Denies post nasal drip, Denies sinus pain, Denies sinus pressure and Denies other ( Thrush) Card Denies chest pain, Denies pedal edema, Denies dyspnea, Denies orthopnea and Denies paroxysmal nocturnal dyspnea Resp Denies cough, Denies hemoptysis, Denies excessive phlegm production, Denies dyspnea, Denies snoring and Reports wheezing GI Denies abdominal pain and Denies heartburn Musc Denies myalgias, Denies arthralgias and Denies joint swelling Skin/Breast Denies rash Neuro Denies memory loss and Denies seizure-like activity Psych Denies abnormal sleep pattern, Denies anxiety and Denies memory loss Endo Denies excessive sweating, Denies fatigue and Denies heat intolerance Gerald/Lymph Denies easy bruising Aller/Immun Denies itchy eyes, Denies seasonal rhinorrhea and Reports wheezing Physical Exam Vital Signs: Last Vital Signs Temp 98.4 F 08/22/24 10:17 Pulse 86 08/22/24 10:17 BP 104/62 08/22/24 10:17 Pulse Ox 95 08/22/24 10:17 Const General: no acute distress and alert Nutritional Appearance: not obese Orientation/consciousness: Other orientation findings ( oriented) HEENT Head: Yes atraumatic Eyes General: appearance normal, both eyes and all related structures Sclerae: sclerae normal EOM: EOMs intact bilaterally Neck Neck: Yes supple Lymphatic: no lymphadenopathy noted Resp Effort & Inspection: normal respiratory effort and no use of accessory muscles Auscultation: wheezes expiratory wheezes ( Mild bilateral) Cardio Rate: regular rate Rhythm: regular rhythm Heart sounds: no gallops, no murmurs and no rubs Skin General skin exam: other ( warm) Extrem General: No clubbing, No cyanosis and No edema Assessment & Plan Assessment & Plan (1) Mediastinal mass: Code(s): J98.59 - Other diseases of mediastinum, not elsewhere classified Category: Medical Plan: EBUS biopsy pathology negative for malignancy, though still with compressive symptoms. Patient advised on consulting with thoracic surgeon for possible resection secondary to compressive symptoms. Patient will continue to follow-up with Dr. White at [facility] and notify the office if she wants to be seen at [facility]. (2) Asthma exacerbation: Code(s): J45.901 - Unspecified asthma with (acute) exacerbation Category: Medical Plan: Baseline controlled on Symbicort and albuterol MDI/ nebs. Now with an acute exacerbation. Patient to finish current prednisone taper. Coding Level of Care Code Est Pt Level 4 (75508) Diagnoses Mediastinal mass J98.59 Asthma exacerbation J45.901
== END 2024-08-22 10:46 | disposition home or self-care (01) ==
PROVIDERS: PCP Internal Medicine; Visit Provider Internal Medicine Pulmonary Disease
DX: J98.59 Other diseases of mediastinum, not elsewhere classified (principal); J45.901 Unspecified asthma with (acute) exacerbation
CPT/HCPCS: 99214

== ENCOUNTER → 2024-08-22 10:14 | Outpatient (BNVA) | payer OTHER, SELFPAY | PROVIDERS: PCP Internal Medicine; Visit Provider Internal Medicine Pulmonary Disease | DX: J45.901 Unspecified asthma with (acute) exacerbation (principal); J98.59 Other diseases of mediastinum, not elsewhere classified | CPT/HCPCS: 99212 ==

== ENCOUNTER 2024-09-12 13:11 | Outpatient (REF) | payer OTHER, SELFPAY ==
--- NOTE | ~2024-09-12 | US_ITS ---
EXAMINATION: US TRIPLEX UPPER EXTREMITY, LEFT CLINICAL INFORMATION: Reevaluation of thrombosis. COMPARISON: Left upper extremity ultrasound 07/18/2024 and 07/14/2024. TECHNIQUE: Color-flow triplex imaging with spectral analysis and compression Doppler was performed on the left upper extremity. FINDINGS: Decreased thrombus burden within the proximal basilic vein. Residual thrombus still seen in the mid and distal segments with a minimal recanalized flow The left internal jugular, subclavian, and axillary veins are patent and free of thrombus. The brachial, cephalic, radial, and ulnar veins are patent and compressible. US/US venous duplex UE LT IMPRESSION: Improved patency seen in the proximal basilic vein. Residual thrombus with minimal recanalized flow in the mid and distal basilic vein Electronically signed by: Rohan Brewster MD 09/12/2024 03:07 PM EDT
== END 2024-09-12 13:12 | disposition home or self-care (01) ==
LOC: HO.US 13:11
PROVIDERS: PCP Internal Medicine; Visit Provider Internal Medicine Medical Oncology
DX: I82.622 Acute embolism and thrombosis of deep veins of left upper extremity (principal)
CPT/HCPCS: 93971

== ENCOUNTER 2024-10-16 14:07 | Outpatient (REF) | payer OTHER, SELFPAY ==
--- NOTE | ~2024-10-16 | US_ITS ---
EXAMINATION: LEFT UPPER EXTREMITY VENOUS ULTRASOUND CLINICAL INFORMATION: Left upper extremity DVT COMPARISON: Left upper extremity DVT study 09/12/2024 TECHNIQUE: Doppler spectral analysis and color flow Doppler imaging was performed of the left upper extremity. Compression and augmentation maneuvers were performed. FINDINGS: Superficial cephalic vein is not visualized. The basilic vein has some semicompressible chronic appearing thrombus. There is no DVT. The left internal jugular vein, subclavian vein, axillary vein, brachial vein and visualized forearm veins were well-identified and normal. They demonstrate normal compressibility and color fill-in. US/US venous duplex UE LT IMPRESSION: 1. No evidence for left upper extremity deep vein thrombosis. 2. Chronic appearing thrombus in the basilic vein with nonvisualization of cephalic vein Electronically signed by: Ravin Mcrae MD 10/20/2024 03:38 PM [facility]
== END 2024-10-16 14:08 | disposition home or self-care (01) ==
LOC: HO.US 14:07
PROVIDERS: PCP Internal Medicine; Visit Provider Internal Medicine Medical Oncology
DX: I82.622 Acute embolism and thrombosis of deep veins of left upper extremity (principal)
CPT/HCPCS: 93971

== ENCOUNTER 2024-11-12 13:58 | Outpatient (AMB) | payer OTHER, SELFPAY ==
[2024-11-12 13:59] VITALS: BP 102/67; PULSE 87; O2SAT 99; BMI 26.0
--- NOTE | 2024-11-12 13:59 | A.OFFVIS_ITS ---
Vital Signs 11/12/24 13:59 Height 5 ft Weight 133 lb 6.075 oz BMI 26.0 BP 102/67 Blood Pressure Location Rt brachial Position Sitting Pulse 87 Pulse Source Doppler Pulse Oximetry (%) 99 Oxygen Delivery Method Room Air Intake Visit Reasons: Lung mass Allergies No Known Allergies Allergy (Verified 11/06/24 14:31) HPI HPI Lung mass: Details: 29-year-old lady, nonsmoker of tobacco products, rarely uses marijuana, with underlying history of asthma since childhood now followed for asthma and tobar bcarinal mass. Patient had prior EBUS biopsy that showed no malignancy, however she has been complain of compressive symptoms and has been referred to [facility] thoracic surgery. Patient also previously seen [facility] thoracic surgery. After the evaluation at [facility] thoracic surgery she had a repeat CT scan and is now scheduled for mediastinoscopy with [facility] thoracic surgery. Her asthma symptoms are well controlled on Symbicort, Singulair, and albuterol MDI. [facility] Medical History Ground glass opacity present on imaging of lung Lung mass Generalized anxiety disorder History of irritable bowel syndrome History of depression History of COVID-19 Mild intermittent asthma COVID-19 Surgical History S/P bronchoscopy with biopsy No pertinent past surgical history Family History Mother No problems noted. Father No problems noted. Social History Household Members: Significant Other Housing: House Alcohol intake: never Patient Tobacco Use Status: Never used Tobacco e-Cigarette/Vaping Use: Never Used Second Hand Smoke Exposure: No Substance Use Type: Marijuana Advance Directives Date on File: 06/11/24 service: No Current occupational status: employed Cognitive needs: No Hearing needs: No Vision needs: Yes Review of Systems Const Denies daytime sleepiness, Denies excessive sweating, Denies fatigue, Denies fever(s), Denies lethargy, Denies malaise, Denies night sweats, Denies snoring and Denies weight loss Eyes Denies blurry vision and Denies itchy eyes ENT Denies nasal congestion, Denies post nasal drip, Denies sinus pain, Denies sinus pressure and Denies other ( Thrush) Card Denies chest pain, Denies pedal edema, Denies dyspnea, Denies orthopnea and Denies paroxysmal nocturnal dyspnea Resp Denies cough, Denies hemoptysis, Denies excessive phlegm production, Denies dyspnea, Denies snoring and Denies wheezing GI Denies abdominal pain and Denies heartburn Musc Denies myalgias, Denies arthralgias and Denies joint swelling Skin/Breast Denies rash Neuro Denies memory loss and Denies seizure-like activity Psych Denies abnormal sleep pattern, Denies anxiety and Denies memory loss Endo Denies excessive sweating, Denies fatigue and Denies heat intolerance Gerald/Lymph Denies easy bruising Aller/Immun Denies itchy eyes, Denies seasonal rhinorrhea and Denies wheezing Physical Exam Vital Signs: Last Vital Signs Pulse 87 11/12/24 13:59 BP 102/67 11/12/24 13:59 Pulse Ox 99 11/12/24 13:59 Oxygen Delivery Method Room Air 11/12/24 13:59 BMI result Body Mass Index 26.0 Const General: no acute distress and alert Nutritional Appearance: not obese Orientation/consciousness: Other orientation findings ( oriented) HEENT Head: Yes atraumatic Eyes General: appearance normal, both eyes and all related structures Sclerae: sclerae normal EOM: EOMs intact bilaterally Neck Neck: Yes supple Lymphatic: no lymphadenopathy noted Resp Effort & Inspection: normal respiratory effort and no use of accessory muscles Auscultation: clear to auscultation bilaterally Cardio Rate: regular rate Rhythm: regular rhythm Heart sounds: no gallops, no murmurs and no rubs Skin General skin exam: other ( warm) Extrem General: No clubbing, No cyanosis and No edema Assessment & Plan Assessment & Plan (1) Asthma: Code(s): J45.909 - Unspecified asthma, uncomplicated Category: Medical Plan: Well controlled on Symbicort and albuterol MDI. Continue current regimen. (2) Lung mass: Code(s): R91.8 - Other nonspecific abnormal finding of lung field Category: Medical Plan: Previously negative EBUS biopsy. Now scheduled for mediastinoscopy with biopsy on 11/12/2024 at [facility]. (3) Environmental allergies: Code(s): Z91.09 - Other allergy status, other than to drugs and biological substances Category: Medical Plan: Well controlled on Singulair. Continue current regimen. Coding Level of Care Code Est Pt Level 4 (98346) Complex EM visit Add On G2211 Diagnoses Asthma J45.909 Lung mass R91.8 Environmental allergies Z91.09
--- OUTSIDE RECORDS SUMMARY | 2024-11-12 14:01 | XMS_ITS | Data Portability ---
Author Organization [facility], [facility] Address [address] [place] [address] Care Team Providers Care Roll Builder Name Role Phone MELVIN TRIVEDI Primary Care Provider Assessment No assessment recorded. Plan of Treatment Reminders Order Date Submit Date Provider Last Modified By Organization Details Last Modified Time Details Appointments None recorded. Lab urinalysis, dipstick 2022 023 [email or web address] 20[facility], [address] [place] [address], [phone], 3 15:55:58 test, urine 2022 023 [email or web address], [address] [place] [address], [phone], 3 15:55:59 Referral emergency medicine referral - Shortness of breath, chest ray shows pneumonia and plurel effusion. Need further evaluation and treatment. 2022 023 [email or web address] [facility] (Emergency Room), [address] [place] [address], [phone], 3 16:07:04 Procedures None recorded. Surgeries None recorded. Imaging XR, chest, 2 view 2022 023 [facility], [address] [place] [address], [place], [address], 3 16:34:48 Medication Orders albuterol sulfate 2.5 mg/3 mL (0.083 %) solution for nebulizatio n 2022 023 [email or web address] Not available 15:55:58 ipratropium bromide 0.02 % solution for inhalation 2022 023 [email or web address] Not available 15:55:58 Patient TargetsNo targets recorded. Patient Instructions Encounter Date Encounter Id Patient Instructions Last Modified By Organization Details Last Modified Time 03/08/2023 [id number] peak flow* [email or web address] Not available 02/24 15:55:58 Patient instruct ed on worsening signs and symptoms that would require further evaluation by ED or PCP such as fever of 101.0 or greater, congestion accompanied with coughing, vomiting, diarrhea, abdominal pain, decreased oral intake, lethargy, or other new symptom(s) experienced not discussed during this visit. Use humidifier and ensure good hydration. If you experience new concerning symptoms, shortness of breath, respiratory distress, or chest pain go to the ER. Use the medications prescribed. May use Decongestants if tolerated and no history of elevated blood pressure or Diabetes. Use saline nasal saline and Flonase daily for1 week. You may use tylenol for pain/fever. Do not take prednisone with Ibuprofen. Get some extra rest. When should you call for help? Call anytime you think you may need emergency care. For example, call if: You have severe trouble breathing. Call your doctor now or seek immediate medical care if: You have new or worse trouble breathing. You cough up dark brown or bloody mucus (sputum). You have a new or higher fever. You have a new rash. Watch closely for changes in your health, and be sure to contact your doctor if: You cough more deeply or more often, especially if you notice more mucus or a change in the color of your mucus. You are not getting better as expected. [email or web address] Not available 03/08/2023 14:27:31 Reason for Referral Emergency Medicine Referral for Dyspnea at rest Shortness of breath, chest ray shows pneumonia and plurel effusion. Need further evaluation and alan Shortness of breath, chest ray shows pneumonia and plurel effusion. Need further evaluation and treatment. Referring Physician: Chilo Hopper, Urgent Care, Encounter Date: 03/08/2023 Results Created Date Observation Date Name Description Value Unit Range Abnormal Flag Note LastModifiedBy Organization Detail LastModifiedTime 03/08/20 23 03/08/2023 pregn tresa test, urine Unknown Analyte Normal = Negati ve Not Available britney zapien [address], [place], [address], 03/08/2023 14:07:19 03/08/20 23 03/08/2023 pregn tresa test, urine Unknown Analyte negati ve Not Available 2099britney zapien [address], [place], [address], 03/08/2023 14:07:19 03/08/2003/08/2023 urina lysis , dipst ick Unknown Analyte Normal = light yellow Not Available britney zapien [address], [place], [address], 03/08/2023 14:07:12 03/08/2003/08/2023 urina lysis , dipst ick Unknown Analyte Yellow Not Available aury [address], [place], [address], 03/08/2023 14:07:12 03/08/20 23 03/08/2023 urina lysis , dipst ick Unknown Analyte Normal = clear Not Available britney zapien [address], [place], [address], 03/08/2023 14:07:12 03/08/2003/08/2023 urina lysis , dipst ick Unknown Analyte Clear Not Available aury [address], [place], [address], 03/08/2023 14:07:12 03/08/2003/08/2023 urina lysis , dipst ick Unknown Analyte Normal = negati ve Not Available britney zapien [address], [place], [address], 03/08/2023 14:07:12 03/08/2003/08/2023 urina lysis , dipst ick Unknown Analyte Negati ve Not Available britney zapien [address], [place], [address], 03/08/2023 14:07:12 03/08/20 23 03/08/2023 urina lysis , dipst ick Unknown Analyte Normal = Negati ve Not Available britney zapien [address], [place], [address], 03/08/2023 14:07:12 03/08/2003/08/2023 urina lysis , dipst ick Unknown Analyte Negati ve Not Available [facility] [address], [place], [address], 03/08/2023 14:07:12 03/08/2003/08/2023 urina lysis , dipst ick Unknown Analyte Normal = Negati ve Not Available britney [address], [place], [address], 03/08/2023 14:07:12 03/08/2003/08/2023 urina lysis , dipst ick Unknown Analyte Negati ve Not Available britney zapien [address], [place], [address], 03/08/2023 14:07:12 03/08/2003/08/2023 urina lysis , dipst ick Unknown Analyte Normal = 1.010, 1.015, 1.020 Not Available britney zapien [address], [place], [address], 03/08/2023 14:07:12 03/08/20 23 03/08/2023 urina lysis , dipst ick Unknown Analyte 1.020 Not Available [address], [place], [address], 03/08/2023 14:07:12 03/08/2003/08/2023 urina lysis , dipst ick Unknown Analyte Normal = Negati ve Not Available [facility] [address] [place] [address], [place], [address], 03/08/2023 14:07:12 03/08/20 23 03/08/2023 urina lysis , dipst ick Unknown Analyte Negati ve Not Available britney [facility], [place], [address], 03/08/2023 14:07:12 03/08/2003/08/2023 urina lysis , dipst ick Unknown Analyte Normal = 6.5, 7.0, 7.5, 8.0 Not Available britney zapien [facility], [place], [address], 03/08/2023 14:07:12 03/08/2003/08/2023 urina lysis , dipst ick Unknown Analyte 7.5 Not Available aury [address], [place], [address], 03/08/2023 14:07:12 03/08/2003/08/2023 urina lysis , dipst ick Unknown Analyte Normal = Negati ve Not Available [facility] [address] [place] [address], [place], [address], 03/08/2023 14:07:12 03/08/2003/08/2023 urina lysis , dipst ick Unknown Analyte Negati ve Not Available [facility] [address] [place] [address], [place], [address], 03/08/2023 14:07:12 03/08/2003/08/2023 urina lysis , dipst ick Unknown Analyte Normal = 0.2, 1.0 Not Available [address] [place] [address], [place], [address], 03/08/2023 14:07:12 03/08/20 23 03/08/2023 urina lysis , dipst ick Unknown Analyte 0.2 E.U./d L Not Available [address] [place] [address], [place], [address], 03/08/2023 14:07:12 03/08/2003/08/2023 urina lysis , dipst ick Unknown Analyte Normal = Negati ve Not Available [address] [place] [address], [place], [address], 03/08/2023 14:07:12 03/08/2003/08/2023 urina lysis , dipst ick Unknown Analyte Negati ve Not Available [address], [place], [address], 03/08/2023 14:07:12 03/08/2003/08/2023 urina lysis , dipst ick Unknown Analyte Normal = Negati ve Not Available [address] [place] [address], [place], [address], 03/08/2023 14:07:12 03/08/2003/08/2023 urina lysis , dipst ick Unknown Analyte Negati ve Not Available [address] [place] [address], [place], [address], 03/08/2023 14:07:12 03/08/2003/08/2023 XR, chest , 2 view No observ ation record ed. [email or web address] [facility] [address] [place], [address], 03/08/2023 16:34:48 Result Notes None recorded. Problems Name Problem SNOMED Code Status Onset Date Resolution Date Notes Provider Name and Address Organization Details Recorded Time Asthma 516835353 Active 023 Zara Beach devyn PA - [facility] 03/08/2023 14:00:14 Problem Notes None recorded. Procedures Surgical History Date Name Laterality Status Provider Name and Address Organization Details Recorded Time Nebulizer Treatment completed Zara Beach PA - [facility] 03/08/2023 14:58:40 Imaging Results Imaging Date Name Status LastModified by Organiz ation Details LastModified Time 03/08/2023 XR, chest, 2 view completed [facility] [address] [place], [address], 03/08/2023 16:34:48 Procedure Notes None recorded. Medical Equipment None Reported. Allergies No known drug allergies Medications Name Sig Start Date Stop Date Status Note LastModified by Organization Details LastModified Time albuterol sulfate 2.5 mg/3 mL (0.083 %) solution for nebulizatio n Inhale 2.5 mg every day by nebulizat ion route as directed for 1 day. 2022 active pt verif ied, EM RN Not Available Not Available Not Available famotidine 40 mg tablet TAKE 1 TABLET BY MOUTH EVERY DAY 03/08 completed Not Available Not Available Not Available montelukast 10 mg tablet TAKE 1 TABLET BY MOUTH IN THE EVENING active Not Available Not Available No t Available dicyclomine 10 mg capsule 03/08 completed Not Available Not Available Not Available loratadine 10 mg tablet TAKE 1 TABLET BY MOUTH EVERY DAY 03/08 completed Not Available Not Available Not Available ipratropium bromide 0.02 % solution for inhalation Inhale 0.5 mg every day by inhalatio n route as directed for 1 day. 2022 active Not Available Not Available Not Avai lable Ventolin HFA 90 mcg/actuati on aerosol inhaler INHALE 2 PUFFS EVERY 6 HOURS NEEDED FOR SHORTNESS OF BREATH OR WHEEZING active Not Available Not Available No t Available Symbicort 160 mcg-4.5 mcg/actuati on HFA aerosol inhaler INHALE 2 PUFFS EVERY 12 HOURS active Not Available Not Available No t Available Nexplanon active Not Available Not Beba ilable Not Available Vitals Date Recorded Body height Body mass index (BMI) Body weight Oxygen saturation Oxygen saturation in Arterial blood by Pulse oximetry Heart rate Respiratory rate Body temperature Systolic blood pressure Diastolic blood pressure Provider Name and Address Organization Details Last Updated DateTime 3 152.4 cm 24.6 kg/m2 66256.6 4 g 97 % 97 % 103 /min 18 /min 99.4 [degF] 118 mm[Hg] 73 mm[Hg] Zara Beach PA - [facility] 3 14:03:15 Social History Question Answer Notes LastModified by Organizat ion Details LastModified Time Tobacco Smoking Status Never Smoker Zara shepard PA - [facility] 03/08/2023 14:00:37 What Is Your Level Of Alcohol Consumption? None Information not available 03/08/2023 Which Illicit Or Recreational Drugs Have You Used? Marijuana Information not available 03/08/2023 Do You Use Any Illicit Or Recreational Drugs? Yes Information not available 03/08/2023 Have You Recently Traveled Abroad? No Information not available 03/08/2023 Do You Or Have You Ever Used Any Other Forms Of Tobacco Or Nicotine? No Information not available 03/08/2023 Sex: Unknown Functional Status None recorded. Mental Status None recorded. Family History Nothing Reported. Medical History No medical history recorded. Gynecological HistoryNo gynecological history recorded. Obstetrics History GPAL:G 0 P 0 0 0 0 Immunizations Vaccine Type Date Status Note Provider Nam e and Address Organization Details Recorded Time Influenza, split virus, quadrivalent, preservative 7 completed Zara shepard PA - [facility] 03/08/2023 13:58:49 Influenza, split virus, quadrivalent, preservative 5 completed Zara shepard PA - [facility] 03/08/2023 13:58:49 COVID-19, mRNA, LNP-S, PF, 30 mcg/0.3 mL dose 1 completed Zara Monfette null, PA - [facility] 03/08/2023 13:58:49 COVID-19, mRNA, LNP-S, PF, 30 mcg/0.3 mL dose 1 completed Zara Monfette null, PA - [facility] 03/08/2023 13:58:49 Pneumococcal conjugate PCV20, polysaccharide [id number] conjugate, adjuvant, PF 3 completed Zara Monfette null, PA - [facility] 03/08/2023 13:58:49 COVID-19, mRNA, LNP-S, PF, 30 mcg/0.3 mL dose, mejia-sucrose 2 completed Zara Monfette null, PA - [facility] 03/08/2023 13:58:49 Td (adult), 2 Lf tetanus toxoid, preservative free, adsorbed 9 completed Zara Monfette null, PA - [facility] 03/08/2023 13:58:49 Hep B, adult 2 completed Zara Monfette null, PA - [facility] 03/08/2023 13:58:49 Hep B, adult 8 completed Zara Monfette null, PA - [facility] 03/08/2023 13:58:49 Influenza, split virus, quadrivalent, PF 8 completed Zara Monfette null, PA - [facility] 03/08/2023 13:58:49 Past Encounters Encounter ID Performer Location Encounter Start Date Encounter Closed Date Diagnosis/Indication Diagnosis SNOMED-CT Code Diagnosis ICD10 Code [id number] [facility] [address] [place] [address] 08/02/2021 18:22:35 08/02/2021 20:01:03 [id number] [facility] [address] [place] [address] 08/01/2019 13:05:26 08/01/2019 13:58:00 [id number] Chilo Hopper [place] [facility] [address] [place] [address] 03/08/2023 13:47:32 03/08/2023 16:07:03 Community acquired pneumonia 499109566 J18.9 Dyspnea at rest 86920066 7 R06.00 Health Concerns Section Related Observation LastModified by Organization Detai ls LastModified Time None Recorded Concern Status LastModified by Organization Details LastModified Time None Recorded Advance Directives Directive None Recorded Payers Encounter Date Sequence Insurance Name Policy Number Policy Weinberg Covered Member ID Weinberg Member ID Guarantor Name 03/08/2023 1 [facility] PLAN (MEDICAID HMO) LASHAWNZay Elizabeth Mosher [id number] Elizabeth Mosher Notes Date Note Type Note Provider Name and Address Organization Details Recorded Time 03/08/2023 text/html Sinus Complaints UCReported bypatient.Location: sinus pain;facial pain;sinus pressure Associated Symptoms:no fever; no nausea or vomiting; no sore throat; no ear fullness; no nasal itching; no eye itching; no dizziness;difficult y breathing;Post nasal drip;nasal passage blockage;cough Onset/Timing:worse in am; worse in pm Quality:minimal discomfort;worsenin g; clear Duration:frequent Severity:moderate Context:no recent upper respiratory infection; no recent sick contacts; not worse with seasonal allergen exposure;worse with environmental exposure Risk Factors:no current smoking or tobacco use; no history of nasal trauma Alleviating factors:oral steroids Aggravating factors:worse during an upper respiratory infection (a cold); worse with excess fatigue Prior Treatmentoral decongestant Chilo Hopper NP [address] [place], [address], PA - [facility] 03/08/2023 16:31:34 OBGyn Episode No OBEpisode recorded.
== END 2024-11-12 14:13 | disposition home or self-care (01) ==
PROVIDERS: PCP Internal Medicine; Visit Provider Internal Medicine Pulmonary Disease
DX: J45.909 Unspecified asthma, uncomplicated (principal); R91.8 Other nonspecific abnormal finding of lung field; Z91.09 Other allergy status, other than to drugs and biological substances
CPT/HCPCS: 99214; G2211

== ENCOUNTER → 2024-11-12 13:58 | Outpatient (BNVA) | payer OTHER, SELFPAY | PROVIDERS: PCP Internal Medicine; Visit Provider Internal Medicine Pulmonary Disease | DX: J45.909 Unspecified asthma, uncomplicated (principal); R91.8 Other nonspecific abnormal finding of lung field; Z91.09 Other allergy status, other than to drugs and biological substances | CPT/HCPCS: 99212 ==

== ENCOUNTER 2024-12-11 09:38 | Outpatient (AMB) | payer OTHER, SELFPAY ==
[2024-12-11 10:54] VITALS: BP 96/66; PULSE 72; TEMP 36.8; O2SAT 96; BMI 25.0
--- NOTE | 2024-12-11 10:54 | AM.OFFWIN_ITS ---
Intake Vital Signs 12/11/24 10:54 Height 5 ft Weight 128 lb BMI 25.0 BP 96/66 Blood Pressure Location Rt brachial Position Sitting Pulse 72 Pulse Source Pulse Oximeter Temp 98.2 F Temp Source Oral Pulse Oximetry (%) 96 Oxygen Delivery Method Room Air Intake Visit Reasons: EP-suddenly hot & cold flashes Intake Note: Pt is here today for a walk in visit. Pt states that she has hx of chest infections. Pt c/o sob, a lot of mucus, cough.Pt also c/o hot and cold flashes and chills. Patient Tobacco Use Status: Never used Tobacco Allergies No Known Allergies Allergy (Verified 12/11/24 11:00) Do you need a note to return to daycare/school/sports/work: Yes HPI HPI Comments History of Present Illness Details 29 y/o female patient who presents to [facility] walk in clinic with c/o SOB, wheezing, and cough for few days now. H/o DVT upper extremity and Asthma and lung mass. S/p Lung Bx and upper Endo/Bronc 10/2024. She is currently under the care of Thoracic @ [facility] and Pulmonology @ [facility]. [facility] Medical History (Updated 12/11/24 @ 11:35 by Dorita Burns NP) Ground glass opacity present on imaging of lung Lung mass Generalized anxiety disorder History of irritable bowel syndrome History of depression History of COVID-19 Mild intermittent asthma COVID-19 Surgical History S/P bronchoscopy with biopsy No pertinent past surgical history Family History Mother No problems noted. Father No problems noted. Social History Household Members: Significant Other Housing: House Alcohol intake: never Patient Tobacco Use Status: Never used Tobacco e-Cigarette/Vaping Use: Never Used Second Hand Smoke Exposure: No Substance Use Type: Marijuana Advance Directives Date on File: 06/11/24 service: No Current occupational status: employed Cognitive needs: No Hearing needs: No Vision needs: Yes Review of Systems Const All systems reviewed & are unremarkable except as noted in HPI and below Physical Exam Vital Signs: Last Vital Signs Temp 98.2 F 12/11/24 10:54 Pulse 72 12/11/24 10:54 BP 96/66 12/11/24 10:54 Pulse Ox 96 12/11/24 10:54 Oxygen Delivery Method Room Air 12/11/24 10:54 BMI result Body Mass Index 25.0 Const General: cooperative Orientation/consciousness: patient oriented x3 HEENT Head: Yes normocephalic Ears: external ears normal and TM's normal bilaterally General nose exam: Normal nasal mucous membranes and turbinates present Face and sinus: Yes sinuses nontender Mouth: moist mucous membranes Resp Effort & Inspection: audible wheezes and Actively coughing Auscultation: no crackles, no rales, rhonchi and wheezes Cardio Heart sounds: S1 normal heart sound present and S2 normal heart sound present Neuro General: patient oriented x3, gait normal and moves all extremities Psych Speech and movement: Normal speech and movement present Office Procedures Nebulizer Treatment Nebulizer Treatment 62374-Urcxpaoxj/MDI RX initial, or Nebulizer Subsequent Treatment Office Meds ipratropium 0.5 mg-albuterol 3 mg (2.5 mg base)/3 mL nebulization soln Performing Provider: Dorita Burns NP Performing Location: [facility] Administered by: Dorita Burns NP on 12/11/24 11:36 Dose Route Admin Location Dispensed Lot Number Expiration Date [facility] Education Consultant 3 mL inhalation 3 mL [id number] 01/18/26 47582-140-03 [employer] Assessment & Plan Assessment & Plan (1) Asthma exacerbation: Code(s): J45.901 - Unspecified asthma with (acute) exacerbation Qualifiers: Asthma persistence: persistent Asthma severity: moderate Qualified Code(s): J45.41 - Moderate persistent asthma with (acute) exacerbation Plan: Prescribed Abx Prednisone oral x 5 days Neb Tx in Office Rest and hydrate well. Orders: Orders AMB Nebulizer Treatment Today J45.41 - Moderate persistent asthma with (acute) exacerbation Medications: New doxycycline hyclate 100 mg PO BID 20 caps 0RF 10 days J45.901 - Unspecified a sthma with (acute) exacerbation prednisone 50 mg PO DAILY 5 tabs 0RF 5 days J45.901 - Unspecified asthma with (acute) exacerbation amoxicillin-pot clavulanate 875-125 mg 1 tab PO BID 10 tabs 0RF 5 days J45.901 - Unspecified asthma with (acute) exacerbation ipratropium-albuterol 0.5 mg-3 mg(2.5 mg base)/3 mL 3 mL inhalation Q4-6H PRN 90 mL 0RF wheezing J45.901 - Unspecified asthma with (acute) exacerbation Coding Level of Care Code Est Pt Level 4 (74408) Diagnoses Moderate persistent asthma with exacerbation J45.41 Asthma persistence: persistent Asthma severity: moderate CPT Codes Nebulizer Treatment - Nebulizer Treatment, initial or subsequent: 96423- Nebulizer/MDI RX initial, or Nebulizer Subsequent Treatment ([id number]) Time Spent (min) 20
== END 2024-12-11 13:11 | disposition home or self-care (01) ==
PROVIDERS: PCP Internal Medicine; Visit Provider Nurse Practitioner Family
DX: J45.41 Moderate persistent asthma with (acute) exacerbation (principal)

== ENCOUNTER → 2024-12-11 09:38 | Outpatient (BNVA) | payer OTHER, SELFPAY | PROVIDERS: PCP Internal Medicine; Visit Provider Nurse Practitioner Family | DX: J45.41 Moderate persistent asthma with (acute) exacerbation (principal) | CPT/HCPCS: 94640; 99212 ==

== ENCOUNTER 2024-12-22 11:42 | Outpatient (REF) | payer OTHER, SELFPAY ==
--- NOTE | ~2024-12-22 | US_ITS ---
EXAMINATION: US DOPPLER VENOUS UPPER EXTREMITY, LEFT CLINICAL INFORMATION: Follow-up left basilic vein thrombosis. COMPARISON: Ultrasound venous Doppler dated October 16, 2024. TECHNIQUE: Color-flow Doppler venous imaging with spectral analysis and compression Doppler was performed on the left upper extremity. FINDINGS: The left internal jugular, subclavian, and axillary veins are patent and free of thrombus. . Spectral doppler waveforms are normal. The brachial, , cephalic, radial, and ulnar veins are patent and compressible. There is an intraluminal isoechoic abnormality without compressibility demonstrated minimal phasic flow in the left basilic vein. US/US venous duplex UE LT IMPRESSION: No acute deep venous thrombosis involving the left upper extremity. 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 Thrombophlebitis cannot be excluded. Electronically signed by: Preston Hollis MD 12/22/2024 12:50 PM EST
--- OUTSIDE RECORDS SUMMARY | 2024-12-22 16:35 | XMS_ITS | Encounter Summary ---
Author Organization [facility] Address [address] [place] [address] Phone Care Team Providers Care Cemetery Laborer Name Role Phone Mely Whittington MD Primary Care Provider Encounter Details Date Type Department Care Team (Late st Contact Info) Description 06/01/2017 Documentation [facility] [place] [address] [place] [address] Family Medicine, Physician [address] [place] [phone] Social History Tobacco Use Types Packs/Day Years Used Date Smoking Tobacco: Never Comments:Never smoker Comments Unknown Sex and Gender Information Value Date Recorded Sex Assigned at Not on file Legal Sex Female 5:19 PM EDT Gender Identity Not on file Sexual Orientation Not on file documented as of this encounter Plan of Treatment Not on file documented as of this encounter Visit Diagnoses Not on filedocumented in this encounter Care Teams Cemetery Laborer Relationship Specialty Start Date End Date Mely Whittington MD [address] [place] [address] [place] [address] PCP - General 07/06/17 02/25/23 documented as of this encounter
--- OUTSIDE RECORDS SUMMARY | 2024-12-22 16:35 | XMS_ITS | Encounter Summary ---
Author Organization [facility] Address [address] [place] [address] Phone Care Team Providers Care Beer Merchant Name Role Phone Mely Whittington MD Primary Care Provider Encounter Details Date Type Department Care Team (Late st Contact Info) Description 12/13/2016 Documentation [facility] Family Medicine [address] [place] [address] Family Medicine, Physician [address], [place] [phone] Social History Tobacco Use Types Packs/Day Years [...] on filedocumented in this encounter Care Teams Beer Merchant Relationship Specialty Start Date End Date Mely Whittington MD [address] [place] [address] [place] [address] PCP - General 07/06/17 02/25/23 documented as of this encounter
--- OUTSIDE RECORDS SUMMARY | 2024-12-22 16:35 | XMS_ITS | Encounter Summary ---
Author Organization [facility] Address [address] [place] [address] Phone Care Team Providers Care Hot Knife Foxing Cutter Name Role Phone Mely Whittington MD Primary Care Provider Encounter Details Date Type Department Care Team (Late st Contact Info) Description 07/17/2013 Documentation [facility] Family Medicine [address] [place] [address] Family Medicine, Physician [address] [place], [place] [phone] Social History Tobacco Use Types Packs/Day Years Used Date Smoking Tobacco: Never Assessed Comments Unknown Sex and Gender Information Value Date Recorded Sex Assigned at Not on file Legal Sex Female 5:19 PM EDT Gender Identity Not on file Sexual Orientation Not on file documented as of this encounter Plan of Treatment Not on file documented as of this encounter Visit Diagnoses Not on filedocumented in this encounter Care Teams Hot Knife Foxing Cutter Relationship Specialty Start Date End Date Mely Whittington MD [address] [facility] [place] [address] PCP - General 07/06/17 02/25/23 documented as of this encounter
--- OUTSIDE RECORDS SUMMARY | 2024-12-22 16:35 | XMS_ITS | Encounter Summary ---
Author Organization [facility] Address [address] [place] [address] Care Team Providers Care Development Architect Name Role Phone Rose Barba MD Primary Care Provider [phone] Reason for Visit * Reason Comments Post-op Bronchoscopy and Med iastinoscopy Encounter Details Date Type Department Care Team (Latest Contact Info) Description 12/08/2024 10:15 AM EST Office Visit Thoracic Surgery - [place] [address] [facility] [address] [place] [address] [phone] Zelda White MD [address] [facility] [address] [place] [id number] Hilar lymphadenopathy (Primary Dx); Mediastinal mass Social History Tobacco Use Types Packs/Day Years Used Date Smoking Tobacco: Never Alcohol Use Standard Drinks/Week Comments Not Currently 0 (1 standard drink = 0.6 oz pur e alcohol) Interpersonal Safety Answer Date Record ed Physical Abuse 11/13/2024 Verbal Abuse 11/13/2024 Sex and Gender Information Value Date Recorded Sex Assigned at Female 11/06/2024 11:34 AM EST Gender Identity Female 11/06/2024 11:34 AM EST Sexual Orientation Straight 11/13/2024 10 :58 AM EST Job Start Date Occupation Industry Not on file Not on file Not on file documented as of this encounter Last Filed Vital Signs Vital Sign Reading Time Taken Comments Blood Pressure 145/84 12/08/2024 10:25 AM EST Pulse 88 12/08/2024 10:25 AM EST Temperature 36.8 ??C (98.2 ??F) 12/08/2024 10:[address] Respiratory Rate 18 12/08/2024 10:25 AM EST Oxygen Saturation 100% 12/08/2024 10:25 AM EST Inhaled Oxygen Concentration - - Weight 61 kg (134 lb 6.4 oz) 12/08/2024 10:25 AM EST Height 152.4 cm (5') 12/08/2024 10:25 AM EST Body Mass Index 26.25 12/08/2024 10:25 AM EST documented in this encounter Progress Notes * Zelda White MD - 12/08/2024 10:28 AM ESTAssociated Problem(s): Mediastinal mass 29-year-old woman with history of asthma recent shortness of breath chest pain and cough with a CT angiogram done negative for PE but showing bilateral pulmonary infiltrates and mediastinal/hilar lymphadenopathy with possibility of a mediastinal mass. CT scan was repeated about a week later with IVcontrast which shows near complete resolution of the pulmonary infiltrates and persistent mediastinal mass/mediastinal/hilar lymphadenopathy. Her symptoms with antibiotic and steroid treatment now seem to be improving where she is not getting the chest pain shortness of breath anymore and the coughis minimal. I had a discussion with her about the findings on her CT scans as described in the HPI a lso discussed mediastinal and hilar lymph nodes and how they can be enlarged as a result of infection, inflammation, or malignancy of some kind. Ultimately did have a follow-up CT scan which showed persistent enlarged mediastinal lymph node/mass. She had a mediastinoscopy done on 11/13/2024 in which flow showed no evidence of lymphoma and tissue evaluation showed no evidence of lymphoma or carcinoma simply reactive lymph nodes. She tolerated the procedure well her wound is healing quite well and she can follow-up on an as-needed basis moving forward. * Zelda White MD - 12/08/2024 10:15 AM EST Thoracic Pathology Review Patient name Elizabeth Mosher 1995 Date of Visit: 12/08/2024 Care Team .Rose Barba MD Reason for Visit: Chief Complaint Patient presents with Post-op Bronchoscopy and Mediastinoscopy Date of procedure: 11/13/2024 Type of procedure performed: CME Hospital procedure was performed: [facility] HPI Ms. Mosher is a 29 y.o. female who presents to our office to review their pathology results followingCME. 29-year-old woman with history of asthma who presented in late June of this year with shortness of breath, chest pain, and cough. She did have a basilic vein thrombus after an IV placed for heat exhaustion earlier in the summer and was actually on Eliquis for this. She then at the hospital had a CT angiogram to rule out PE on 07/24/2024 which was reviewed and interpreted by me directly showing multifocal groundglass opacities, bilateral hilar lymphadenopathy, and a mediastinal mass/possibly conglomerate of mediastinal lymph nodes in the subcarinal space. He was treated with a Z-Dre at first and then additional antibiotics as well as prednisone at that point and her symptoms have started now to improve and she is actually able to sleep through the night now. A repeat CT scan with IV contrast was done which shows all of the above findings with the exception of the groundglass areas whichseem to have already improved quite significantly. She has no tenderness on palpation now. No whitecount on any of her admission labs at [facility]. She then had an EBUS at [facility] whichdid not reveal any particular pathology. She also tells me she has been on and off steroids but hasweaned off since that time and is feeling better but occasionally now gets that chest tightness shewas getting before. A CT scan of the chest was done at [facility] and she saw a thoracic surgeon there done on 10/16/2024 which shows decrease in the lymphadenopathy in the mediastinum althoughnot back to normal and some improvement in the pulmonary infiltrates nodule/nodularity above. She then opted for a CME which was done on 11/13/2024 which she tolerated quite well denies fevers chillspain or drainage from the wound. Pathology tissue revealed no evidence of carcinoma or lymphoma simply looked like reactive lymph nodes. Flow cytometry also was negative for lymphoma. I did explain this to her in detail. She reports feeling generally good health but has reported some weight loss with this episode and decreased appetite she denies fevers chills soaking sweats does report some fatigue. She does have chest pain but this is improving as is the shortness of breath wheezing and cough. She denies any neurologic symptoms. Past Medical History: Diagnosis Date Asthma DX:Asthma Deep vein thrombosis ([facility]/HCC) Generalized anxiety disorder DX:Generalized anxiety disorder History of depression DX:History of depression History of DVT (deep vein thrombosis) DX:History of DVT (deep vein thrombosis) Lung mass DX:Lung mass Shortness of breath No Known Allergies Current Outpatient Medications Medication Sig Dispense Refill albuterol 2.5 mg /3 mL (0.083 %) nebulizer solution Take 3 mL (2.5 mg total) by nebulization every 6 (six) hours if needed for wheezing. albuterol sulfate (ProAir RespiClick) 90 mcg/actuation aerosol powdr breath activated Inhale into the lungs. apixaban (ELIQUIS) 5 mg tablet Take by mouth. budesonide-formoteroL (SYMBICORT) 160-4.5 mcg/actuation inhaler Inhale 2 Puffs into the lungs 2 times daily. etonogestrel-eluting contraceptive device 68 mg implant subdermal implant 1 each by implant route 1(one) time. montelukast (SINGULAIR) 10 mg tablet Take 1 tablet (10 mg total) by mouth at bedtime. No current facility-administered medications for this visit. Social History Tobacco Use Smoking status: Never Substance Use Topics Alcohol use: Not Currently Drug use: Yes Types: Marijuana/Cannabis Social History Social History Narrative Not on file Family History Family history unknown: Yes ROS General - Negative for: weight loss/gain, fatigue, fever, chills, weakness, difficulty sleeping Head - Negative for: headache, trauma Eyes - Negative for: acute vision change, blurred vision, double vision, eye pain, conjunctival erythema, eyelid pain/swelling/erythema Ears - Negative for: acute change in hearing, tinnitus, ear pain, ear drainage Nose - Negative for: nasal discharge, nosebleed, itching, sinus pain Mouth/Throat - Negative for: sore throat, swollen throat, dry mouth, hoarseness, dysphagia, odynophagia, oral lesions Neck - Negative for: pain, stiffness, swelling, mass/lumps, swollen glands Cardiovascular - Negative for: chest pain/pressure, exertional chest pain, palpitations, lightheadedness, dizziness, orthopnea, extremity edema Respiratory -as above Gastrointestinal - Negative for: abdominal pain, abdominal distention, bloating, nausea, vomiting, early satiety, diarrhea, constipation, BRBPR, melena, poor appetite Genitourinary - Negative for: dysuria, hematura, urinary frequency, urinary urgency, incontinence Musculoskeletal - Negative for: muscle or joint pain, stiffness, back pain, joint swelling or erythema Neurologic - Negative for: dizziness, seizures, weakness, numbness, tingling, tremor, dysarthria, facial droop Hematologic - Negative for: easy bruising, easy bleeding, ecchymosis, petechiae Endocrine - Negative for: polyuriua, polydipsia, heat or cold intolerance Lymphatic - Negative for: swollen nodes, unexplained lumps/bumps in neck/axillae/groin Skin - Negative for: rashes, lumps, itching, dryness, color change, hair/nail changes Psychiatric - Negative for: depression, anxiety, nervousness, stress, memory change, SI/HI Physical Exam Vitals: 12/08/24 1025 BP: (!) 145/84 BP Location: Right arm Patient Position: Sitting BP Cuff Size: Adult Pulse: 88 Resp: 18 Temp: 36.8 ??C (98.2 ??F) TempSrc: Temporal SpO2: 100% Weight: 61 kg (134 lb 6.4 oz) Height: 1.524 m (60 ) General: Patient is sitting comfortably in no acute distress, well developed, well nourished Head: Normocephalic, atraumatic, symmetric Eyes: Sclera anicteric, eyelids without edema or erythema, +EOMS intact ENT: Oral mucosa and tongue are moist without lesions or exudates Neck: Soft, supple, symmetric, trachea midline, no crepitus, no mass visualized or palpated Cardiovascular: Regular rate and rhythm, no murmur/rubs/gallops, BUE and BLE without edema, no calftenderness bilaterally Respiratory: Lungs CTA B, breathing nonlabored, speaking in full sentences, on room air. No use of accessory muscles. No obvious chest wall abnormality or deformity. Gastrointestinal: Soft, non-tender, non-distended, +normoactive bowel sounds. Lymphatic: no cervical, supraclavicular, infraclavicular, or other lymphadenopathy noted Neurological: Alert and oriented x 3, neurologic exam is grossly normal Psychiatric: No agitation, appropriate affect Pathology: Reviewed in detail with the patient as above Micro / Labs: Reviewed Radiology reviewed and interpreted by me directly as above I personally viewed the following imaging studies, in addition to reviewing the dictated report from the reading radiologist Assessment/Plan: Problem List Items Addressed This Visit Respiratory Hilar lymphadenopathy - Primary Circulatory Mediastinal mass 29-year-old woman with history of asthma recent shortness of breath chest pain and cough with a CT angiogram done negative for PE but showing bilateral pulmonary infiltrates and mediastinal/hilar lymphadenopathy with possibility of a mediastinal mass. CT scan was repeated about a week later with IVcontrast which shows near complete resolution of the pulmonary infiltrates and persistent mediastinal mass/mediastinal/hilar lymphadenopathy. Her symptoms with antibiotic and steroid treatment now seem to be improving where she is not getting the chest pain shortness of breath anymore and the coughis minimal. I had a discussion with her about the findings on her CT scans as described in the HPI a lso discussed mediastinal and hilar lymph nodes and how they can be enlarged as a result of infection, inflammation, or malignancy of some kind. Ultimately did have a follow-up CT scan which showed persistent enlarged mediastinal lymph node/mass. She had a mediastinoscopy done on 11/13/2024 in which flow showed no evidence of lymphoma and tissue evaluation showed no evidence of lymphoma or carcinoma simply reactive lymph nodes. She tolerated the procedure well her wound is healing quite well and she can follow-up on an as-needed basis moving forward. Total time spent on date of this encounter: 33 minutes Reviewing patient's chart, Independently reviewing current/past imaging, Visit with the patient, Counseling and educating patient/family on diagnosis, Discussion of ongoing management, and Documenting clinical information in the patient's medical record Zelda White MD on 12/08/2024 at 10:29 AM EST CC: Roddy Swift MD Annabel L Espinas, MD documented in this encounter Plan of Treatment Not on file documented as of this encounter Visit Diagnoses Diagnosis Hilar lymphadenopathy- Primary Enlargement of lymph nodes Mediastinal mass Swelling, mass, or lump in chest documented in this encounter Care Teams Development Architect Relationship Specialty Start Date End Date Rose Barba MD [address] [place] [id number] PCP - General Internal Medicine 02/23/22 documented as of this encounter
--- OUTSIDE RECORDS SUMMARY | 2024-12-22 16:35 | XMS_ITS | Clinical Summary ---
Author Organization [facility] Address [address] [place] [phone] Phone Care Team Providers Care Core Paster Name Role Phone Rose Barba MD Primary Care Provider [phone] Allergies No known active allergies Medications Medication Sig Dispensed Refills Start Date End Date Status budesonide-formoteroL (SYMBICORT) 160-4.5 mcg/actuation inhaler Inhale 2 Puffs into the lungs 2 times daily. Active apixaban (ELIQUIS) 5 mg tablet Take by mouth. Active albuterol sulfate (ProAir RespiClick) 90 mcg/actuation aerosol powdr breath activated Inhale into the lungs. Active etonogestrel-eluting contraceptive device 68 mg implant subdermal implant 1 each by implant route 1 (one) time. Active albuterol 2.5 mg /3 mL (0.083 %) nebulizer solution Take 3 mL (2.5 mg total) by nebulization every 6 (six) hours if needed for wheezing. Active montelukast (SINGULAIR) 10 mg tablet Take 1 tablet (10 mg total) by mouth at bedtime. 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 CT scan was repeated about a week later with IV contrast which shows near complete resolution of the pulmonary infiltrates and persistent mediastinal mass/mediastinal/hilar lymphadenopathy. Her symptoms with antibiotic and steroid treatment now seem to be improving where she is not getting the chest pain shortness of breath anymore and the cough is minimal. I had a discussion with her about the findings on her CT scans as described in the HPI also discussed mediastinal and hilar lymph nodes and how they can be enlarged as a result of infection, inflammation, or malignancy of some kind. In my opinion, given that this was probably in the setting of an infectious event with her symptoms improving the next best step would be for a 3-month follow-up CT scan of the chest and a visit to see if the lymph nodes eventually decrease in the mass subsides to an extent. If not she would need a biopsy of some kind at that point but if they do then she would avoid a biopsy with either an EBUS or mediastinoscopy. She did say she has an EBUS scheduled at [facility] by Dr. Perez for next week after I told her my recommendation and I will just leave it up to her as to whether she wants to proceed with that or not. I also discussed this with Dr. Perez and told him that she is deciding how she wants to proceed now. Of note she is also currently on Eliquis for a superficial vein thrombus in the basilic vein which was likely as a result of an IV she had after some heat exhaustion over the summer. All questions were answered and we will just plan on scheduling the CT scan in 3 months and a visit with me after that and she will let us know how she ends up proceeding over at [facility]. Assessment & Plan (12/08/2024 10:28 AM EST): 29-year-old woman with history of asthma recent shortness of breath chest pain and cough with a CT angiogram done negative for PE but showing bilateral pulmonary infiltrates and mediastinal/hilar lymphadenopathy with possibility of a mediastinal mass. CT scan was repeated about a week later with IV contrast which shows near complete resolution of the pulmonary infiltrates and persistent mediastinal mass/mediastinal/hilar lymphadenopathy. Her symptoms with antibiotic and steroid treatment now seem to be improving where she is not getting the chest pain shortness of breath anymore and the cough is minimal. I had a discussion with her about the findings on her CT scans as described in the HPI also discussed mediastinal and hilar lymph nodes and [...] well and she can follow-up on an as- needed basis moving forward. Assessment & Plan (10/31/2024 7:56 AM EST): 29-year-old woman with history of asthma recent shortness of breath chest pain and cough with a CT angiogram done negative for PE but showing bilateral pulmonary infiltrates and mediastinal/hilar lymphadenopathy with possibility of a mediastinal mass. CT scan was repeated about a week later with IV contrast which shows near complete resolution of the pulmonary infiltrates and persistent mediastinal mass/mediastinal/hilar lymphadenopathy. Her symptoms with antibiotic and steroid treatment now seem to be improving where she is not getting the chest pain shortness of breath anymore and the cough is minimal. I had a discussion with her about the findings on her now repeat CT scans as described in the HPI also discussed mediastinal and hilar lymph nodes and how they can be enlarged as a result of infection, inflammation, or malignancy of some kind. Given that this area has decreased in size I do think malignancy is less likely however lymphoma or sarcoid are still within the differential. I discussed options with her including continued observation hopefully to resolution with serial imaging versus a mediastinoscopy. After discussing the risks and benefits of these options she wants to proceed with a mediastinoscopy. Will plan to schedule that for the first week in November at her request. All questions were answered. Pulmonary infiltrates 08/07/2024 Asthma Overview (10/30/2024): DX:Asthma Encounters Date Type Department Care Team Description 12/08/2024 10:15 AM EST Office Visit Thoracic Surgery - [address] [place] [phone] Zelda White MD Hilar lymphadenopathy (Primary Dx); Mediastinal mass 11/13/2024 12:00 PM EST - 11/13/2024 2:30 PM EST Surgery [facility] OR [address] [place] [phone] Zelda White MD Bronchoscopy and Mediastinoscopy [[id number] (CPT??) +3 more] 11/13/2024 11:54 AM EST Anesthesia Event [facility] OR [address] [place] [phone] Jessica Mims MD Chang, Ling, CRNA 11/13/2024 11:00 AM EST - 11/13/2024 3:22 PM EST Hospital Encounter [facility] Main OR [address] [place] [phone] Zelda White MD Mediastinal mass; Hilar lymphadenopathy Discharge Disposition: Home or Self Care 10/31/2024 Telephone Thoracic Surgery [address] [phone] Zelda White MD Procedure (Surgery ) 10/30/2024 11:30 AM EST Office Visit Thoracic Surgery - [address] [phone] Zelda White MD Mediastinal mass (Primary Dx); Hilar lymphadenopathy; Pulmonary infiltrates 10/08/2024 Telephone Thoracic Surgery [address] [phone] Zelda White MD from Last 3 Months Surgical History Surgery Date Site/Laterality Comments OR EBUS LUNG BIOPSY LUNG MASS Medical History Medical History Date Comments Asthma DX:Asthma History of DVT (deep vein thrombosis) DX:History of DVT (deep vein thrombosis) Generalized anxiety disorder DX: Generalized anxiety disorder Lung mass DX:Lung mass History of depression DX:History of depression Deep vein thrombosis (CMS/HCC) Shortness of breath Social History Tobacco Use Types Packs/Day Years Used Date Smoking Tobacco: Never Tobacco Cessation:Counseling Given: Not Answered Alcohol Use Standard Drinks/Week Comments Not Currently [...] file Not on file Not on file Obstetrics History Comments HAS IMPLANTED CONTROL Last Filed Vital Signs Vital Sign Reading [...] Mass Index 26.25 12/08/2024 10:25 AM EST Plan of Treatment Health Maintenance Due Date Last Done Comments Cervical Cancer Screening: Pap Smear 2018 Depression Screening 10/25/2022 HIV Screening 10/25/2022 Hepatitis C Screening 10/25/2022 Social Influencers of Health Screening 10/25/2022 COVID-19 Vaccine ( season) 2024 12/21/2021, 06/17/2021, 05/27/2021 Influenza Vaccine (#1) 2024 8, 12/07/2016, 08/27/2015, Additional history exists DTaP,Tdap,and Td Vaccines (8 - Td or Tdap) 05/26/2029 05/26/2019, 01/27/2009, 08/23/2001, Additional history exists HIB Vaccines Completed 06/30/1999, 11/26, 1997, Additional history exists IPV Vaccines Completed 08/23/2001, 11/26, 1997, Additional history exists MMR Vaccines Completed 08/23/2001, 06/30/1999 Varicella Vaccines Completed 01/27/2009, 06/29/1998 HPV Vaccines Completed 01/10/2011, 05/0 01/2010, 01/27/2009 Hepatitis A Vaccines Completed 10/16/2013, 06/21/20 11 Meningococcal ACWY Vaccine Completed 03/04/2015, Hepatitis B Vaccines Completed 05/05/2022, 08/16/2018, 1997, Additional history exists Pneumococcal Vaccine: Pediatrics (0 to 5 Years) and At-Risk Patients (6 to 64 Years) Completed 02/20/2023 RSV Immunization Patients Under 20 months Aged Out No longer eligible based on patient's age to complete this topic Medical Devices Implanted Type Area Edi Architect Device Identifier Shelf Expiration Date Model / Serial / Lot Drsg Hemostat 4x8in Abs Ster Surgicel - Sn/A - [id number] Implanted:Qty: 1 on 11/13/2024 by Zelda White MD at [facility] Hemostasis N/A: Mediastinum [employer] 1949 / N/A / N/A Procedures Procedure Name Priority Date/Time Associated Diagnosis Comments ..TISSUE GRIND, DIGESTION AND DECONVOLUTION Routine 11/13/2024 12:46 PM EST Mediastinal mass Hilar lymphadenopathy ACID FAST BACILLI STAIN Routine 11/13/2024 12:46 PM EST Mediastinal mass Hilar lymphadenopathy CULTURE TISSUE WITH GRAM STAIN Routine 11/13/2024 12:46 PM EST Mediastinal mass Hilar lymphadenopathy CULTURE, AFB AND SMEAR WITH REFLEX TO IDENTIFICATION AND SUSCEPTIBILITY Routine 11/13/2024 12:46 PM EST Mediastinal mass Hilar lymphadenopathy CULTURE FUNGAL, OTHER Routine 11/13/2024 12:46 PM EST Mediastinal mass Hilar lymphadenopathy TISSUE EXAM Routine 11/13/2024 12:39 PM EST Mediastinal mass Hilar lymphadenopathy FLOW CYTOMETRY Routine 11/13/2024 12:39 PM EST Mediastinal mass Hilar lymphadenopathy TH AN ENDOTRACHEAL(NO CHARGE) Routine 11/13/2024 12:15 PM EST IA BRONCHOSCOPY RIGID/FLEXIBLE DIAGNOSTIC W/CELL WASHING 11/13/2024 11:54 AM EST Mediastinal mass Hilar lymphadenopathy Case Notes IA BRONCHOSCOPY RIGID/FLEXIBLE W/EBUS >=3 MEDIASTINAL/HILAR LYMPH NODES 11/13/2024 11:54 AM EST Mediastinal mass Hilar lymphadenopathy Case Notes IA MEDIASTINOSCOPY WITH LYMPH NODE BIOPSY 11/13/2024 11:54 AM EST Mediastinal mass Hilar lymphadenopathy Case Notes IA MEDIASTINOSCOPY INCLUDES MEDIASTINAL MASS BIOPSY 11/13/2024 11:54 AM EST Mediastinal mass Hilar lymphadenopathy Case Notes CBC WITH AUTO DIFFERENTIAL Routine 11/06/2024 11:38 AM EST Mediastinal mass Hilar lymphadenopathy BASIC METABOLIC PANEL Routine 11/06/2024 11:38 AM EST Mediastinal mass Hilar lymphadenopathy CBC AND DIFFERENTIAL Routine 11/06/2024 11:38 AM EST Mediastinal mass Hilar lymphadenopathy PROTHROMBIN TIME WITH INR Routine 11/06/2024 11:38 AM EST Mediastinal mass Hilar lymphadenopathy ACTIVATED PARTIAL THROMBOPLASTIN TIME Routine 11/06/2024 11:38 AM EST Mediastinal mass Hilar lymphadenopathy TYPE AND SCREEN Routine 11/06/2024 11:38 AM EST Mediastinal mass Hilar lymphadenopathy EXTERNAL CT REPORT 10/16/2024 from Last 3 Months Results * Culture tissue with gram stain (11/13/2024 12:46 PM EST) Culture, Tissue No growth aerobically and anaerobically at 5 days. 11/18/2024 8:40 AM EST [facility] Gram Stain Result No polymorphonuclear leukocytes, No epithelial cells, and No organisms noted 11/18/2024 8:40 AM EST [facility] Tissue Lymph node specimen / Unknown 11/13/2024 12:46 PM EST 11/13/2024 1:02 PM EST Zelda White MD LAB MICROBIOLOGY - G ENERAL ORDERABLES [facility] [address] [place] [address], * Tissue grind, digestion and deconvolution (11/13/2024 12:46 PM EST) Tissue Grind/Digestio n/Decon Performed 11/14/2024 4:05 PM EST [facility] Tissue Lymph node specimen / Unknown 11/13/2024 12:46 PM EST 11/13/2024 1:02 PM EST Narrative [facility] - 11/14/2024 4:05 PM EST Performed at: ??01 - [facility] [address] ??[id number] [place] Burner: Naz Nair MD, Phone: ??[phone] Zelda White MD LAB PATHOLOGY ORDERA BLES Performing Organization Address City/[facility]/ZIP Co de Phone Number [facility] * Acid fast bacilli stain (11/13/2024 12:46 PM EST) AFB Stain Result No Acid fast bacilli seen on direct smear (Fuchsin method, 1000x) No Acid Fast Bacilli seen on direct smear 11/13/2024 8:42 PM EST [facility] Tissue Lymph node specimen / Unknown 11/13/2024 12:46 PM EST 11/13/2024 1:02 PM EST Zelda White MD LAB MICROBIOLOGY - G ENERAL ORDERABLES Performing Organization Address City/[facility]/ZIP Co de Phone Number [facility] [address] [place] [address], * Culture fungal, other (11/13/2024 12:46 PM EST) Culture, Fungus Negative for Fungus after 4 Weeks 12/11/2024 2:05 PM EST [facility] Tissue Lymph node specimen / Unknown 11/13/2024 12:46 PM EST 11/13/2024 1:01 PM EST Zelda White MD LAB MICROBIOLOGY - G ENERAL ORDERABLES [facility] [address] [place] [address], * Flow cytometry (11/13/2024 12:39 PM EST) Flow Cytometry Interpretation Lymph node, pretracheal and subcarinal (combined specimen), flow cytometry: No monotypic B cell population identified. Most of the lymphocytes are CD3-positive T cells including CD4-positive and CD8-positive subsets without diagnostic phenotypic aberrancy. There is no discrete population of [id number] blasts identified. See comment. Comment: The overall findings show no monotypic B-cell population and no aberrant T-cell population. The flow cytometry findings are compatible with a reactive lymphoid population. However, a negative flow cytometry study does not fully exclude the possibility of a neoplastic process. Correlation with morphologic findings in the accompanying lymph node biopsy specimens is recommended. (See separate report [id number].) Please note that myeloid disorders cannot be reliably excluded by flow cytometry. Clinical correlation recommended. SPECIMEN: Mediastinal Mass ([id number]) VIABILITY: 77.6% TOTAL CELL YIELD: 0.9x106/mL IMMUNOPHENOTYPIC FINDINGS: Lymphocytes are 97.7% of total. T cells are 72.5% of total (74.2% of cells in lymphocyte gate) with no aberrant phenotype, CD4:CD8= 1.5. B cells are 20.2% of total (20.7% of cells in lymphocyte gate) and are polytypic (kappa:lambda ratio = 1.4). The B cells show no significant expression of CD5, CD10, or CD38 and show no overexpression of CD200. Granulocytes are 0.5% of total and monocytic cells are 0.9% of total. There is no significant [id number] blast population seen. REVIEW OF TRAYLOR-STAINED CYTOSPIN: The cytospin shows a polymorphous lymphoid population including a predominance of small lymphocytes with scattered larger lymphoid cells. Numerous degenerated cells are also present. Antibodies (17 markers): CD2, CD3, CD4, CD5, CD7, CD8, CD10, CD19, CD20, CD34, CD38, CD45, CD56, CD200, [place], Lambda, TCR gamma-delta. Flow cytometry reviewed and signed by Dr. Shaggy Burgos at [facility] ([place], [place]). 11/17/2024 4:[address] [facility] Disclaimer This test was developed and its performance characteristics determined by [facility]. It has not been cleared or approved by U.S. Food and Drug Administration. The FDA does not require this test to go through premarket FDA review. This test is used for clinical purposes. It should not be regarded as investigational or for research. This laboratory is certified under Clinical Laboratory Improvement Amendments of 1988 (CLIA) as qualified to perform high complexity clinical laboratory testing. 11/17/2024 4:[address] [facility] Tissue Lymph node specimen / Unknown 11/13/2024 12:39 PM EST 11/13/2024 1:13 PM EST Zelda White MD LAB BLOOD ORDERABLES [facility] [address] [place] [address], * Tissue exam (11/13/2024 12:39 PM EST) Final Diagnosis A. Paratracheal lymph node, right, biopsy: Lymph node with reactive changes including follicular hyperplasia. No carcinoma and no lymphoma identified. B. Lymph node, subcarinal, biopsy: Lymph node with reactive changes including follicular hyperplasia. No carcinoma and no lymphoma identified. Immunohistochemical studies were performed on blocks A1 and B1 and show similar findings in both lymph node biopsies; the results are as follows: CD3: Subset of lymphocytes immunoreactive (predominantly interfollicular lymphocytes). CD20: Subset of lymphocytes immunoreactive (follicle centers, mantle zones and some interfollicular cells). CD21: Highlights follicular dendritic cell meshworks. Bcl-2: Majority of lymphocytes immunoreactive; follicle center cells are negative. PAX5: Subset of lymphocytes immunoreactive (follicle centers, mantle zones, and subset of interfollicular cells). Cytokeratin JANETH: Negative for epithelial cells. Interpretation: Immunohistochemical studies highlight a mixed population of B cells and T cells with generally filling machine set up mechanic distribution of CD20 positive B cells (predominantly located in follicle centers and mantle zones with scattered interfollicular cells also present) and CD3 positive T cells (predominantly interfollicular with some intra follicular T cells noted. CD20 and CD3 account for the vast majority of lymphocytes present. A PAX5 immunohistochemical study shows a similar distribution of staining to CD20; no discrete population of large atypical cells with weak expression of PAX5 is identified. CD21 highlights the follicular dendritic cells, indicating the presence of follicle centers. The cells within the follicle centers are largely negative for Bcl-2. No epithelial cell population is identified with cytokeratin JANETH. The immunochemical findings corroborate the flow cytometric findings and support interpretation as a lymph node with reactive changes. Note: Although there is partial crush artifact in some tissue fragments, the overall lymph node architecture appears preserved with patent sinuses and scattered reactive lymphoid follicles (highlighted by immunohistochemical studies). Flow cytometric evaluation (a combined specimen including material from the paratracheal and subcarinal lymph node specimens) reveals no monotypic B cell population and no aberrant T cell population. The combined morphologic and immunophenotypic findings support interpretation as fragments of reactive lymph nodes. There are no well-formed granulomata identified. There is no carcinoma and no lymphoma identified. Clinical correlation and follow-up is recommended. If the patient's lymphadenopathy fails to resolve in a clinically appropriate fashion and/or if clinical concern for a neoplastic process at this site remains, additional sampling could be considered. 4:15 PM [facility]) [facility] Gross Description A. Lymph Node, Right paratracheal lymph node: Labeled right par lymph node . Received fresh, in saline, with Telfa, is a 1.0 x 0.6 x 0.2 cm aggregate of soft, knight glistening fragments of sommer tissue and minimal blood clot. The specimen is sectioned. Results Technician portions tissue and liquid are placed in RPMI from parts A & B and submitted to [facility], [place], [place], for flow cytometric studies. The balance of the specimen is submitted in one cassette, multiple pieces (one H&E, +15 unstained slides and one H&E). B. Lymph Node, Subcarinal lymph node: Labeled subcarina lymph node . Received fresh, in saline, with sheets Telfa, is a 1.5 x 1.0 x 0.25 cm aggregate of soft, knight glistening fragments of sommer tissue and minimal blood clot. The specimen is sectioned. Results Technician portions tissue and liquid are placed in RPMI from parts A & B and submitted to [facility], [place], [place], for flow cytometric studies. The balance of the specimen is submitted in one cassette, multiple pieces (one H&E, +15 unstained slides and one H&E). TS 4 4:15 PM EST [facility] Disclaimer NOTE: The immunohistochemical tests and in situ hybridization tests were developed and their performance characteristics were determined by [facility]. They have not been cleared or approved by the U.S. Food and Drug Administration. The FDA has determined that such clearance or approval is not necessary. These tests are used for clinical purposes. They should not be regarded as investigational or for research. This laboratory is certified under the Clinical Laboratory Improvement Amendments of 1988 (CLIA) as qualified to perform high complexity clinical laboratory testing. (controls appropriate) Unless otherwise specified, all tissue is 10% NB formalin fixed and paraffin embedded. 4 4:15 PM EST [facility] Tissue Lymph node specimen / Unknown 11/13/2024 12:39 PM EST 11/13/2024 1:01 PM EST Tissue specimen (specimen) Lymph node specimen / Unknown 11/13/2024 12:44 PM EST 11/13/2024 1:01 PM EST Zelda White MD LAB PATHOLOGY ORDERA BLES [facility] [address] [place] [address], * TH AN ENDOTRACHEAL(NO CHARGE) (11/13/2024 12:15 PM EST) Narrative Becky Ovalles CRNA - 11/13/2024 12:15 PM EST Becky Ovalles CRNA ? 11/13/2024 12:16 PM General Information and Staff Patient location during procedure: OR Performed by: Becky Ovalles CRNA Authorized by: Jessica Mims MD ?? Intubation Airway not difficult Urgency: elective Final Airway Details Successful airway: ETT Cuffed: yes Successful intubation technique: direct laryngoscopy Endotracheal tube insertion site: oral Blade: Alberto Blade size: #3 ETT size (mm): 8.5 Cormack-Lehane Classification: grade IIa - partial view of glottis Placement verified by: chest auscultation and capnometry Measured from: lips ETT to lips (cm): 22 Number of attempts at approach: 1 Ventilation between attempts: BVM Number of other approaches attempted: 0Final airway type: endotracheal airway Indications and Patient Condition Indications for airway management: anesthesia Spontaneous ventilation: present Sedation level: Yes Preoxygenated: yes Soft Tissue Damage: No Dentition Unchanged: Yes Patient position: neutral MILS not maintained throughout Mask difficulty assessment: 1 - vent by mask Start Time: 11/13/2024 12:03 PMStop Time: 11/13/2024 12:03 PM Jessica Mims MD ANESTHESIA ORDERABLE S * (ABNORMAL) CBC auto differential (11/06/2024 11:38 AM EST) WBC 8.5 4.8 - 10.8 K/mcL LAB HEMETOLOGY METHOD 11/06/2024 12:22 PM [facility] RBC 4.40 3.80 - 4.80 M/mcL LAB HEMETOLOGY METHOD 11/06/2024 12:22 PM [facility] Hemoglobin 12.4 11.5 - 16.0 g/dL LAB HEMETOLOGY METHOD 11/06/2024 12:22 PM [facility] Hematocrit 37.8 35.0 - 47.0 % LAB HEMETOLOGY METHOD 11/06/2024 12:22 PM [facility] MCV 85.1 79.0 - 98.0 FL LAB HEMETOLOGY METHOD 11/06/2024 12:22 PM [facility] MCH 27.9 27.0 - 32.0 pcg LAB HEMETOLOGY METHOD 11/06/2024 12:22 PM [facility] MCHC 32.8 32.0 - 37.0 g/dL LAB HEMETOLOGY METHOD 11/06/2024 12:22 PM [facility] RDW 16.3(H) 11.0 - 15.0 % LAB HEMETOLOGY METHOD 11/06/2024 12:22 PM [facility] Platelets 264 130 - 400 K/mcL LAB HEMETOLOGY METHOD 11/06/2024 12:22 PM [facility] MPV 11.2(H) 7.0 - 11.0 FL LAB HEMETOLOGY METHOD 11/06/2024 12:22 PM [facility] NRBC 0.0 <1.0 % LAB HEMETOLOGY METHOD 11/06/2024 12:22 PM [facility] NRBC Absolute 0.00 <0.10 K/mcL LAB HEMETOLOGY METHOD 11/06/2024 12:22 PM [facility] Neutrophils Relative 60.2 % LAB HEMETOLOGY METHOD 11/06/2024 12:22 PM [facility] Lymphocytes Relative 29.6 % LAB HEMETOLOGY METHOD 11/06/2024 12:22 PM [facility] Monocytes Relative 6.4 % LAB HEMETOLOGY METHOD 11/06/2024 12:22 PM [facility] Eosinophils Relative 2.8 % LAB HEMETOLOGY METHOD 11/06/2024 12:22 PM [facility] Basophils Relative 0.6 % LAB HEMETOLOGY METHOD 11/06/2024 12:22 PM [facility] Immature Granulocytes Relative 0.4 % LAB HEMETOLOGY METHOD 11/06/2024 12:22 PM [facility] [facility] Neutrophils Absolute 5.09 1.50 - 7.00 K/mcL LAB HEMETOLOGY METHOD 11/06/2024 12:22 PM [facility] Lymphocytes Absolute 2.50 1.00 - 5.00 K/mcL LAB HEMETOLOGY METHOD 11/06/2024 12:22 PM [facility] Monocytes Absolute 0.54 0.20 - 1.00 K/mcL LAB HEMETOLOGY METHOD 11/06/2024 12:22 PM [facility] Eosinophils Absolute 0.24 0.00 - 0.50 K/[facility] LAB HEMETOLOGY METHOD 11/06/2024 12:22 PM [facility] Basophils Absolute 0.05 0.00 - 0.20 K/[facility] LAB HEMETOLOGY METHOD 11/06/2024 12:22 PM EST [facility] Immature Granulocytes Absolute 0.03 0.00 - 0.03 K/[facility] LAB HEMETOLOGY METHOD 11/06/2024 12:22 PM [facility] Blood Venous blood specimen / Unknown Venipuncture / Unknown 11/06/2024 11:38 AM EST 11/06/2024 12:21 PM EST Zelda White MD LAB BLOOD ORDERABLES [facility] [address] [place] [address], [place] [phone] * Activated partial thromboplastin time (11/06/2024 11:38 AM EST) aPTT 35.8 24.1 - 39.3 sec LAB COAGULATION METHOD 11/06/2024 12:08 PM [facility] Blood Venous blood specimen / Unknown Venipuncture / Unknown 11/06/2024 11:38 AM EST 11/06/2024 11:56 AM EST Zelda White MD LAB BLOOD ORDERABLES [facility] [address] [place] [address], [place] [phone] * Prothrombin time with INR (11/06/2024 11:38 AM EST) Protime 13.0 10.6 - 13.9 sec LAB COAGULATION METHOD 11/06/2024 12:08 PM EST [facility] INR 1.0 LAB COAGULATION METHOD 11/06/2024 12:08 PM [facility] Blood Venous blood specimen / Unknown Venipuncture / Unknown 11/06/2024 11:38 AM EST 11/06/2024 11:56 AM EST Zelda White MD LAB BLOOD ORDERABLES Performing Organization Address City/[facility]/ZIP Co de Phone Number [facility] [address] [place] [address], [place] [phone] * Type and screen (11/06/2024 11:38 AM EST) Pathologist [facility] B 11/06/2024 1:04 PM [facility] Rh Type Positive 11/06/2024 1:04 PM [facility] Antibody Screen Negative 11/06/2024 1:04 PM [facility] Blood Venous blood specimen / Unknown Venipuncture / Unknown 11/06/2024 11:38 AM EST 11/06/2024 11:56 AM EST Zelda White MD LAB BLOOD BANK TEST ORDERABLES Performing Organization Address [facility]/ZIP Co de Phone Number [facility] [address] [place] [address], [place] [phone] * (ABNORMAL) Basic metabolic panel (11/06/2024 11:38 AM EST) Sodium 142 133 - 145 mmol/L LAB CHEMISTRY METHOD 11/06/2024 3:04 PM [facility] Potassium 4.1 3.5 - 5.5 mmol/L LAB CHEMISTRY METHOD 11/06/2024 3:04 PM [facility] Chloride 111(H) 96 - 110 mmol/L LAB CHEMISTRY METHOD 11/06/2024 3:04 PM [facility] CO2 25 21 - 32 mmol/L LAB CHEMISTRY METHOD 11/06/2024 3:04 PM [facility] Anion Gap 6 3 - 11 LAB CHEMISTRY METHOD 11/06/2024 3:04 PM [facility] Glucose 82 70 - 100 mg/dL LAB CHEMISTRY METHOD 11/06/2024 3:04 PM [facility] BUN 5 5 - 25 mg/dL LAB CHEMISTRY METHOD 11/06/2024 3:04 PM [facility] Creatinine 0.91 0.50 - 1.10 mg/dL LAB CHEMISTRY METHOD 11/06/2024 3:04 PM [facility] eGFR 89 >=60 mL/min/1. 73m2 LAB CHEMISTRY METHOD 11/06/2024 3:04 PM [facility] Comment:Calculation based on the??Chronic Kidney Disease Epidemiology Collaboration (CKD-EPI) equation refit??without adjustment for race. BUN/Creatinine Ratio 5.5 LAB CHEMISTRY METHOD 11/06/2024 3:04 PM [facility] Calcium 9.7 8.5 - 10.5 mg/dL LAB CHEMISTRY METHOD 11/06/2024 3:04 PM [facility] Blood Venous blood specimen / Unknown Venipuncture / Unknown 11/06/2024 11:38 AM EST 11/06/2024 11:56 AM EST Zelda White MD LAB BLOOD ORDERABLES [facility] [address] [place] [address], * External CT Report (10/16/2024) Anatomical Region Laterality Modality Computed Tomogra phy Provider [facility] CT PROCEDURE S from Last 3 Months Advance Directives * Full Code - Default (Latest Code Status on File) Date Activated Date Inactivated Comments 11/13/2024 11:16 AM 11/13/2024 5:28 PM This is o rder is used when code status has not been discussed with the patient, or code status is otherwise unknown/unconfirmed To update the patient's code status, place a code status order. Do not modify or discontinue any currently active code status orders. Care Teams Core Paster Relationship Specialty Start Date End Date Rose Barba MD [address] [place] [address] PCP - General Internal Medicine 02/23/22
--- OUTSIDE RECORDS SUMMARY | 2024-12-22 16:35 | XMS_ITS | Clinical Summary ---
Author Organization [facility] Address [address] [place] [address] Phone Care Team Providers Care Commercial Manager Name Role Phone Unavailable Primary Care Provider Unavailabl e Allergies No known active allergies Medications Etonogestrel (NEXPLANON) 68 MG implant Inject under the skin. Active Active Problems Problem Noted Date Diagnosed Date Sleep disorder 07/03/2013 Acanthosis nigricans 06/21/2011 Immunizations Name Administration Dates Next Due DTP 01/19/1999, 8,1997,08/03 DTaP 5 08/23/2001 HPV, Quadrivalent 01/10/2011,03/28/2010,01/28/20 09 Hep A, ped/adol 10/16/2013,06/21/2011 Hep B, Adult 08/16/2018 Hep B, ped/adol 1997,1997,1997 Hib (PRP-T) 06/30/1999, 8,1997,08/03 IPV 08/23/2001 Influenza Split 10/11/2012 Influenza, injectable, quadrivalent 12/07/2016,1 Influenza, injectable, quadr ivalent, preservative free 08/16/2018,10/16/2013 MMR 08/23/2001,06/30/1999 Meningococcal Conj (Menactra) MCV4P 03/04/2015,0 01/27/2009 OPV 1997,1997,1997 Td (adult) (MBL), 2 Lf tetan us toxoid, PF, adsorbed 05/26/2019 Tdap 01/27/2009 Varicella 01/27/2009,06/29/1998 Family History Medical History Relation Name Comments No Known Problems Father No Known Problems Mother Relation Name Status Comments Father Mother Alive Mother: Sleep a pnea Sister Alive Sister: Alive a nd well Social History Tobacco Use Types Packs/Day Years Used Date Smoking Tobacco: Never Smokeless Tobacco: Never Comments:Never smoker Alcohol Use Standard Drinks/Week Comments No 0 (1 standard drink = 0.6 oz pur e alcohol) Comments No Sex and Gender Information Value Date Recorded Sex Assigned at Not on file Legal Sex Female 5:19 PM EDT Gender Identity Not on file Sexual Orientation Not on file Last Filed Vital Signs Vital Sign Reading Time Taken Comments Blood Pressure 105/59 08/16/2018 10:01 AM EDT Pulse 79 08/16/2018 10:01 AM EDT Temperature 36.7 ??C (98.1 ??F) 08/16/2018 10:01 AM E DT Respiratory Rate - - Oxygen Saturation 100% 09/27/2012 12:00 AM EDT Inhaled Oxygen Concentration - - Weight 59.7 kg (131 lb 9.6 oz) 08/16/2018 10:01 AM EDT Height 156.8 cm (5' 1.75 ) 08/16/2018 10:01 AM E DT Body Mass Index 24.27 08/16/2018 10:01 AM EDT Plan of Treatment Health Maintenance Due Date Last Done Comments Influenza Vaccines (#1) 2024 08/16/20 18, 12/07/2016, 08/27/2015, Additional history exists COVID-19 Vaccine ( season) 2024 DTaP,Tdap,and Td Vaccines (8 - Td or Tdap) 05/26/2029 05/26/2019, 01/27/2009, 08/23/2001, Additional history exists HIB Vaccines Completed 06/30/1999, 11/26, 1997, Additional history exists IPV Vaccines Completed 08/23/2001, 11/26, 1997, Additional history exists MMR Vaccines Completed 08/23/2001, 06/30/1999 Varicella Vaccines Completed 01/27/2009, 06/29/1998 HPV Vaccines Completed 01/10/2011, 05/01/2010, 01/27/2009 Hepatitis A Vaccines Completed 10/16/2013, 06/21/20 11 Meningococcal Vaccine Completed 03/04/2015, 009 Hepatitis B Vaccines Completed 08/16/2018, 1997, 1997, Additional history exists Men B Vaccine Aged Out No longer elig ible based on patient's age to complete this topic Pneumococcal Vaccine Aged Out No long er eligible based on patient's age to complete this topic Procedures * Due to [facility] law, this organization might not be sharing sensitive test results. Procedure Name Priority Date/Time Associated Diagnosis Comments CHLAMYDIA AND GONORRHEA, AMPLIFIED Routine 08/16/2018 11:48 AM EDT Encounter for screening examination for infectious disease from Last 3 Months or Most Recently Relevant to Health Maintenance Results * Due to [place] [email or web address] law, this organization might not be sharing sensitive test results. * Chlamydia and Gonorrhea, Amplified (08/16/2018 11:48 AM EDT) Chlamydia Trachomatis, DNA Probe NEGATIVE (NEG) [facility] Comment: No Chlamydia Trachomatis RNA detected in this patient's sample ? (REFERENCE RANGE/NORMAL VALUE: NOT DETECTED) ? Note: This test uses criminology professor- mediated amplification method to detect rRNA from C. Trachomatis URINE GC AMP PROBE NEGATIVE (NEG) [facility] Comment: No Neisseria Gonorrhoeae RNA detected in this patient's sample ? (REFERENCE RANGE/NORMAL VALUE: NOT DETECTED) ? NOTE: This test uses criminology professor-mediated amplification method to detect rRNA from N.Gonorrhoeae. A negative result does not preclude infection. In the case of a negative urine result, testing of an endocervical(female) or urethral (male) specimen is recommended if there is high clinical suspicion of infection. Due to very high sensitivity of Nucleic Acid Amplification Test, false positive results may occur. Therefore, specimen handling is extremely important. In patients in whom the disease is unlikely, additional sample for testing should be considered after an initial positive result. The performance characteristics of this test have not been evaluated in children. The Aptima Combo2 assay is not intended for the evaluation of suspected sexual abuse or for other medico-legal indications. The ordering provider should assess if the patient had consensual sex without risk of sexual abuse. Consult the [facility] if needed. Contact phone number . Therapeutic failure or success cannot be determined with the Aptima Combo2 assay since nucleic acid may persist following appropriate antimicrobial therapy. The Centers for Disease Control and Prevention (CDC) recommends confirmatory retesting using culture or a different nucleic acid amplification test when positive results occur, if indicated. Testing performed or reported by [facility], a Service of [facility], [facility] [place] [address] CLIA [id number] Olya Rich MD, Drapery Sewer Hand Urine 08/16/2018 11:4 8 AM EDT 08/16/2018 10:30 PM EDT us Wale Mendes MD LAB MICROBIOLOGY - GENERAL OR DERABLES Final Result [facility] from Last 3 Months or Most Recently Relevant to Health Maintenance Insurance [facility] NON PCC
--- OUTSIDE RECORDS SUMMARY | 2024-12-22 16:35 | XMS_ITS | Encounter Summary ---
Author Organization [facility] Address [address] [place] [address] Phone Care Team Providers Care Sewer Line Repairer Name Role Phone Mely Whittington MD Primary Care Provider Encounter Details Date Type Department Care Team (Late st Contact Info) Description 06/08/2017 Documentation [facility] Family Medicine [address] [place] [address] Family Medicine, Physician [address] [place] [id number] Social History Tobacco Use Types Packs/Day Years [...] on filedocumented in this encounter Care Teams Sewer Line Repairer Relationship Specialty Start Date End Date Mely Whittington MD [address] [place] [address] [place] [address] PCP - General 07/06/17 02/25/23 documented as of this encounter
--- OUTSIDE RECORDS SUMMARY | 2024-12-22 16:35 | XMS_ITS | Encounter Summary ---
Author Organization [facility] Address [address] [place] [address] Phone Care Team Providers Care Imaging Aide Name Role Phone Mely Whittington MD Primary Care Provider [phone] Encounter Details Date Type Department Care Team (Late st Contact Info) Description 07/12/2017 Conversion Encounter [facility] - [address] [address] Social History Tobacco Use Types Packs/Day Years [...] on filedocumented in this encounter Care Teams Imaging Aide Relationship Specialty Start Date End Date Mely Whittington MD [address] [place] [address] PCP - General 07/06/17 02/25/23 documented as of this encounter
--- OUTSIDE RECORDS SUMMARY | 2024-12-22 16:35 | XMS_ITS | Encounter Summary ---
Author Organization [facility] Address [address] [place] [address] Care Team Providers Care Linderman Machine Operator Name Role Phone Rose Barba MD Primary Care Provider [phone] Reason for Visit * Reason Onset Date Comments Procedure 10/31/2024 Surgery Encounter Details Date Type Department Care Team ([facility] st Contact Info) Description 10/31/2024 Telephone Thoracic Surgery - [place] [address] [facility] [address] [place] [phone] Zelda White MD [address] [facility] [address] [place] [id number] Procedure (Surgery ) Social History Tobacco Use Types Packs/Day Years [...] on file documented as of this encounter Progress Notes * Samantha Sarabia - 11/17/2024 11:30 AM EST LVM to patient regarding her post-op on 11/24 Dr. White will not be in office and she was reschedule for 11/28/24 at 8:00 am 11/17 JEWELL * Samantha Sarabia - 10/31/2024 2:22 PM EST Patient is aware of her surgery on 11/13/2024 at 12:30 pm arrival time 11:00 am PAT- 11/06/2024 at 11:30 am Post-op - 11/24/2024 at 9:45 am NO AUTH NEEDED FOR WELLSENSE documented in this encounter Plan of Treatment Not on file documented as of this encounter Visit Diagnoses Not on filedocumented in this encounter Care Teams Linderman Machine Operator Relationship Specialty Start Date End Date Rose Barba MD [address] [place] [address] PCP - General Internal Medicine 02/23/22 documented as of this encounter
--- OUTSIDE RECORDS SUMMARY | 2024-12-22 16:35 | XMS_ITS | Data Portability ---
Author Organization [facility], [facility] Address [address] [place] [address] Care Team Providers Care Customer Care Coordinator Name Role Phone MELVIN TRIVEDI Primary Care Provider Assessment No assessment recorded. Plan of Treatment Reminders Order Date Submit Date Provider Last Modified By Organization Details Last Modified Time Details Appointments None recorded. Lab urinalysis, dipstick 2022 023 [email or web address] [facility], [address] [place] [address], [phone], 3 15:55:58 test, urine 2022 023 [facility], [address] [place] [address], [phone], 3 15:55:59 Referral emergency medicine referral - Shortness of breath, chest ray shows pneumonia and plurel effusion. Need further evaluation and treatment. 2022 023 [email or web address] [facility] (Emergency Room), [address] [place] [address], [address], 3 16:07:04 Procedures None recorded. Surgeries None recorded. Imaging XR, chest, 2 view 2022 023 [facility], [address] [place] [address], [place], [address], 3 16:34:48 Medication Orders albuterol sulfate 2.5 mg/3 mL (0.083 %) solution for nebulizatio n 2022 023 [email or web address] Not available 15:55:58 ipratropium bromide 0.02 % solution for inhalation 2022 023 [email or web address] Not available 15:55:58 Patient TargetsNo targets recorded. Patient Instructions Encounter Date Encounter Id Patient Instructions Last Modified By Organization Details Last Modified Time 03/08/2023 [id number] peak flow* [email or web address] Not available 02/24 15:55:58 [...] = Negati ve Not Available britney zapien [address], [place], [address], 03/08/2023 14:07:19 03/08/20 23 03/08/2023 pregn tresa test, urine Unknown Analyte negati ve Not Available 2099britney zapien [address], [place], [address], 03/08/2023 14:07:19 03/08/2003/08/2023 urina lysis , dipst ick Unknown Analyte Normal = light yellow Not Available britney zapien [address], [place], [address], 03/08/2023 14:07:12 03/08/2003/08/2023 urina lysis , dipst ick Unknown Analyte Yellow Not Available aury [address], [place], [address], 03/08/2023 14:07:12 03/08/20 23 03/08/2023 urina lysis , dipst ick Unknown Analyte Normal = clear Not Available britney zapien [address], [place], [address], 03/08/2023 14:07:12 03/08/2003/08/2023 urina lysis , dipst ick Unknown Analyte Clear Not Available aury [address], [place], [address], 03/08/2023 14:07:12 03/08/2003/08/2023 urina lysis , dipst ick Unknown Analyte Normal = negati ve Not Available britney zapien [address], [place], [address], 03/08/2023 14:07:12 03/08/2003/08/2023 urina lysis , dipst ick Unknown Analyte Negati ve Not Available britney zapien [address], [place], [address], 03/08/2023 14:07:12 03/08/20 23 03/08/2023 urina lysis , dipst ick Unknown Analyte Normal = Negati ve Not Available britney zapien [address], [place], [address], 03/08/2023 14:07:12 03/08/2003/08/2023 urina lysis , dipst ick Unknown Analyte Negati ve Not Available [facility] [address], [place], [address], 03/08/2023 14:07:12 03/08/2003/08/2023 urina lysis , dipst ick Unknown Analyte Normal = Negati ve Not Available britney [address], [place], [address], 03/08/2023 14:07:12 03/08/2003/08/2023 urina lysis , dipst ick Unknown Analyte Negati ve Not Available britney zapien [address], [place], [address], 03/08/2023 14:07:12 03/08/2003/08/2023 urina lysis , dipst ick Unknown Analyte Normal = 1.010, 1.015, 1.020 Not Available britney zapien [address], [place], [address], 03/08/2023 14:07:12 03/08/20 23 03/08/2023 urina lysis , dipst ick Unknown Analyte 1.020 Not Available [address], [place], [address], 03/08/2023 14:07:12 03/08/2003/08/2023 urina lysis , dipst ick Unknown Analyte Normal = Negati ve Not Available [facility]ritney [facility] [address] [place] [address], [place], [address], 03/08/2023 14:07:12 03/08/20 23 03/08/2023 urina lysis , dipst ick Unknown Analyte Negati ve Not Available britney [facility], [place], [address], 03/08/2023 14:07:12 03/08/2003/08/2023 urina lysis , dipst ick Unknown Analyte Normal = 6.5, 7.0, 7.5, 8.0 Not Available britney zapien [facility], [place], [address], 03/08/2023 14:07:12 03/08/2003/08/2023 urina lysis , dipst ick Unknown Analyte 7.5 Not Available aury [address], [place], [address], 03/08/2023 14:07:12 03/08/2003/08/2023 urina lysis , dipst ick Unknown Analyte Normal = Negati ve Not Available [facility]ney [facility] [address] [place] [address], [place], [address], 03/08/2023 14:07:12 03/08/2003/08/2023 urina lysis , dipst ick Unknown Analyte Negati ve Not Available [facility]ritney pe [facility] [address] [place] [address], [place], [address], 03/08/2023 14:07:12 03/08/2003/08/2023 urina lysis , dipst ick Unknown Analyte Normal = 0.2, 1.[address] Available [address] [place] [address], [place], [address], 03/08/2023 14:07:12 03/08/20 23 03/08/2023 urina lysis , dipst ick Unknown Analyte 0.2 E.U./d L Not Available [address] [place] [address], [place], [address], 03/08/2023 14:07:12 03/08/2003/08/2023 urina lysis , dipst ick Unknown Analyte Normal = Negati ve Not Available [address] [place] [address], [place], [address], 03/08/2023 14:07:12 03/08/2003/08/2023 urina lysis , dipst ick Unknown Analyte Negati ve Not Available [address], [place], [address], 03/08/2023 14:07:12 03/08/2003/08/2023 urina lysis , dipst ick Unknown Analyte Normal = Negati ve Not Available [address] [place] [address], [place], [address], 03/08/2023 14:07:12 03/08/2003/08/2023 urina lysis , dipst ick Unknown Analyte Negati ve Not Available [address] [place] [address], [place], [address], 03/08/2023 14:07:12 03/08/2003/08/2023 XR, chest , 2 view No observ ation record ed. [email or web address] [facility] [address] [facility] [place], [address], 03/08/2023 16:34:48 Result Notes None recorded. Problems Name Problem SNOMED Code Status Onset Date Resolution Date Notes Provider Name and Address Organization Details Recorded Time Asthma 039975229 Active 023 Zara Beach devyn PA - [facility] 03/08/2023 14:00:14 Problem Notes None recorded. Procedures Surgical History Date Name Laterality Status Provider Name and Address Organization Details Recorded Time Nebulizer Treatment completed Zara Beach PA - [facility] 03/08/2023 14:58:40 Imaging Results Imaging Date Name Status LastModified by Organiz ation Details LastModified Time 03/08/2023 XR, chest, 2 view completed [facility] [address] [facility] [place], [address], 03/08/2023 16:34:48 Procedure Notes None recorded. Medical [...] Not Available Vitals Date Recorded Body height Provider Name an d Address Organization Details Last Updated DateTime 03/08/2023 152.4 cm Zara Beach PA - [facility] 03/08/2023 14:00:46 Date Recorded Body mass index (BMI) Body weight Provider Name and Address Organization Details Last Updated DateTime 03/08/2023 24.6 kg/m2 36848.64 g Zaraesau Narayananjonnymary carmen PA - [facility] 03/08/2023 14:00:51 Date Recorded Pain severity - 0-10 verbal numeric rating [Score] - Reported Provider Name and Address Organization Details Last Updated DateTime 03/08/2023 8 Zaraesau Narayananjonnymary carmen PA - [facility] 03/08/2023 14:00:56 Date Recorded Oxygen saturation Oxygen saturation in Arterial blood by Pulse oximetry Provider Name and Address Organization Details Last Updated DateTime 03/08/2023 97 % 97 % Zaraesau Beach PA - [facility] 03/08/2023 14:02:21 Date Recorded Heart rate Provider Name an d Address Organization Details Last Updated DateTime 03/08/2023 103 /min Zaraesau Narayanandayday PA - [facility] 03/08/2023 14:02:35 Date Recorded Respiratory rate Provider Name a nd Address Organization Details Last Updated DateTime 03/08/2023 18 /min Zara Oraciodayday PA - [facility] 03/08/2023 14:02:37 Date Recorded Body temperature Provider Name a nd Address Organization Details Last Updated DateTime 03/08/2023 99.4 [degF] Zaraesau Narayanandayday PA - [facility] 03/08/2023 14:03:08 Date Recorded Systolic blood pressure Diastolic blood pressure Provider Name and Address Organization Details Last Updated DateTime 03/08/2023 118 mm[Hg] 73 mm[Hg] Zara Oraciodayday PA - [facility] 03/08/2023 14:03:15 Social History Question Answer Notes LastModified by Organizat ion Details LastModified Time Tobacco Smoking Status Never Smoker Zara Monfette null, PA - [facility] 03/08/2023 14:00:37 What [...] split virus, quadrivalent, preservative 7 completed Zara Beach null, PA - [facility] 03/08/2023 13:58:49 Influenza, split virus, quadrivalent, preservative 5 completed Zara Beach null, PA - [facility] 03/08/2023 13:58:49 COVID-19, mRNA, LNP-S, PF, 30 mcg/0.3 mL dose 1 completed Zara Beach null, PA - [facility] 03/08/2023 13:58:49 COVID-19, mRNA, LNP-S, PF, 30 mcg/0.3 mL dose 1 completed Zara Sultanae null, PA - [facility] 03/08/2023 13:58:49 Pneumococcal conjugate PCV20, polysaccharide ZTL630 conjugate, adjuvant, PF 3 completed Zara Beach null, PA - [facility] 03/08/2023 13:58:49 COVID-19, mRNA, LNP-S, PF, 30 mcg/0.3 mL dose, mejia-sucrose 2 completed Zara Beach null, PA - [facility] 03/08/2023 13:58:49 [...] Diagnosis/Indication Diagnosis SNOMED-CT Code Diagnosis ICD10 Code Diagnosis Note [id number] [facility] [address] [place] [address] 08/02/2021 18:22:35 08/02/2021 20:01:03 [id number] [facility] [address] [place] [address] 08/01/2019 13:05:26 08/01/2019 13:58:00 [id number] Chilo Hopper [place] [facility] [address] [place] [address] 03/08/2023 13:47:32 03/08/2023 16:07:03 Community acquired pneumonia 665122065 J18.9 Dyspnea at rest [id number] 7 R06.00 Health Concerns Section Related Observation LastModified by Organization Detai ls LastModified Time None Recorded Concern Status LastModified by Organization Details LastModified Time None Recorded Advance Directives Directive None Recorded Payers Encounter Date Sequence Insurance Name Policy Number Policy Weinberg Covered Member ID Weinberg Member ID Guarantor Name 03/08/2023 1 [facility] HEALTH [employer]AN (MEDICAID HMO) SHIRLEY Mosher [id number] Elizabeth Mosher Notes Date Note Type Note [...] Hopper NP [address] [place], [address], PA - [facility] 03/08/2023 16:31:34 OBGyn Episode No OBEpisode recorded.
== END 2024-12-22 11:43 | disposition home or self-care (01) ==
LOC: HO.US 11:42
PROVIDERS: PCP Internal Medicine; Visit Provider Internal Medicine Medical Oncology
DX: I82.622 Acute embolism and thrombosis of deep veins of left upper extremity (principal)
CPT/HCPCS: 93971

== ENCOUNTER → 2024-12-22 11:43 | Outpatient (BNV) | payer OTHER, SELFPAY | PROVIDERS: PCP Internal Medicine; Visit Provider Radiology Diagnostic Radiology | DX: I82.612 Acute embolism and thrombosis of superficial veins of left upper extremity (principal) | CPT/HCPCS: 93971 ==

== ENCOUNTER 2025-01-27 14:41 | Outpatient (AMB) | payer OTHER, SELFPAY ==
[2025-01-27 14:42] VITALS: BP 100/62; PULSE 78; O2SAT 100; BMI 25.8
--- NOTE | 2025-01-27 14:42 | MHC.OFFVIS ---
Vital Signs 01/27/25 14:42 Height 5 ft Weight 132 lb BMI 25.8 BP 100/62 Blood Pressure Location Rt brachial Position Sitting Pulse 78 Pulse Source Doppler Pulse Oximetry (%) 100 Oxygen Delivery Method Room Air Intake Visit Reasons: Lung Mass Allergies No Known Allergies Allergy (Verified 01/27/25 14:51) HPI HPI Lung Mass: Details: 29-year-old lady, nonsmoker of tobacco products, rarely uses marijuana, with underlying history of asthma since childhood now followed for asthma and subcarinal mass. Patient had prior EBUS biopsy that showed no malignancy, however she has been complain of compressive symptoms and has been referred to [facility]. She ended up having mediastinoscopy which was negative for malignancy at [facility]. Patient has been intermittently using Symbicort and albuterol MDI/nebs with good control of her symptoms. She did have recent exacerbation treated with a course of amoxicillin/doxycycline/prednisone by urgent care. Patient is currently at baseline respiratory status. [facility] Medical History (Updated 12/11/24 @ 11:35 by Dorita [place] NP) Ground glass opacity present on imaging of lung Lung mass Generalized anxiety disorder History of irritable bowel syndrome History of depression History of COVID-19 Mild intermittent asthma COVID-19 Surgical History S/P bronchoscopy with biopsy No pertinent past surgical history Family History Mother No problems noted. Father No problems noted. Social History Household Members: Significant Other Housing: House Alcohol intake: never Patient Tobacco Use Status: Never used Tobacco e-Cigarette/Vaping Use: Never Used Second Hand Smoke Exposure: No Substance Use Type: Marijuana Advance Directives Date on File: 06/11/24 service: No Current occupational status: employed Cognitive needs: No Hearing needs: No Vision needs: Yes Review of Systems Const Denies daytime sleepiness, Denies excessive sweating, Denies fatigue, Denies fever(s), Denies lethargy, Denies malaise, Denies night sweats, Denies snoring and Denies weight loss Eyes Denies blurry vision and Denies itchy eyes ENT Denies nasal congestion, Denies post nasal drip, Denies sinus pain, Denies sinus pressure and Denies other ( Thrush) Card Denies chest pain, Denies pedal edema, Denies dyspnea, Denies orthopnea and Denies paroxysmal nocturnal dyspnea Resp Denies cough, Denies hemoptysis, Denies excessive phlegm production, Denies dyspnea, Denies snoring and Denies wheezing GI Denies abdominal pain and Denies heartburn Musc Denies myalgias, Denies arthralgias and Denies joint swelling Skin/Breast Denies rash Neuro Denies memory loss and Denies seizure-like activity Psych Denies abnormal sleep pattern, Denies anxiety and Denies memory loss Endo Denies excessive sweating, Denies fatigue and Denies heat intolerance Gerald/Lymph Denies easy bruising Aller/Immun Denies itchy eyes, Denies seasonal rhinorrhea and Denies wheezing Physical Exam Vital Signs: Last Vital Signs Pulse 78 01/27/25 14:42 BP 100/62 01/27/25 14:42 Pulse Ox 100 01/27/25 14:42 Oxygen Delivery Method Room Air 01/27/25 14:42 BMI result Body Mass Index 25.8 Const General: no acute distress and alert Nutritional Appearance: not obese Orientation/consciousness: Other orientation findings ( oriented) HEENT Head: Yes atraumatic Eyes General: appearance normal, both eyes and all related structures Sclerae: sclerae normal EOM: EOMs intact bilaterally Neck Neck: Yes supple Lymphatic: no lymphadenopathy noted Resp Effort & Inspection: normal respiratory effort and no use of accessory muscles Auscultation: clear to auscultation bilaterally Cardio Rate: regular rate Rhythm: regular rhythm Heart sounds: no gallops, no murmurs and no rubs Skin General skin exam: other ( warm) Extrem General: No clubbing, No cyanosis and No edema Assessment & Plan Assessment & Plan (1) Asthma: Code(s): J45.909 - Unspecified asthma, uncomplicated Category: Medical Plan: Well controlled on current regimen of Symbicort and albuterol MDI/nebs. Continue current regimen. Coding Level of Care Code Est Pt Level 3 (46654) Diagnoses Asthma J45.909
--- OUTSIDE RECORDS SUMMARY | 2025-01-27 18:35 | XMS_ITS | Encounter Summary ---
Author Organization [facility] Address [address] [place] [address] Phone Care Team Providers Care Gis Analyst Name Role Phone Mely Whittington MD Primary Care Provider [phone] Encounter Details Date Type Department Care Team (Late st Contact Info) Description 07/17/2013 Documentation [facility] Family Medicine [address] [place] [address] Family Medicine, Physician [address] [place], [place] [phone] Social History Tobacco Use Types Packs/Day Years [...] on filedocumented in this encounter Care Teams Gis Analyst Relationship Specialty Start Date End Date Mely Whittington MD [address] [facility] [address] PCP - General 07/06/17 02/25/23 documented as of this encounter
--- OUTSIDE RECORDS SUMMARY | 2025-01-27 18:35 | XMS_ITS | Encounter Summary ---
Author Organization [facility] Address [address] [place] [address] Phone Care Team Providers Care Commercial Sales Consultant Name Role Phone Mely Whittington MD Primary Care Provider [phone] Encounter Details Date Type Department Care Team (Late st Contact Info) Description 07/12/2017 Conversion Encounter [facility] - [address] [address] Social History Tobacco Use Types Packs/Day Years [...] on filedocumented in this encounter Care Teams Commercial Sales Consultant Relationship Specialty Start Date End Date Mely Whittington MD [address] [place] [address] PCP - General 07/06/17 02/25/23 documented as of this encounter
--- OUTSIDE RECORDS SUMMARY | 2025-01-27 18:35 | XMS_ITS | Encounter Summary ---
Author Organization [facility] Address [address] [place] [address] Phone Care Team Providers Care Wire Coating Machine Operator Name Role Phone Mely Whittington MD Primary Care Provider Encounter Details Date Type Department Care Team (Late st Contact Info) Description 06/01/[address] [facility] [address] [place] [address] Family Medicine, Physician [address] [place] [phone] Social History Tobacco Use Types Packs/Day Years [...] on filedocumented in this encounter Care Teams Wire Coating Machine Operator Relationship Specialty Start Date End Date Mely Whittington MD [address] [place] [address] [place] [address] PCP - General 07/06/17 02/25/23 documented as of this encounter
--- OUTSIDE RECORDS SUMMARY | 2025-01-27 18:35 | XMS_ITS | Data Portability ---
Author Organization [facility], [facility] Address [address] [place] [address] Care Team Providers Care Proprietary Trader Name Role Phone MELVIN TRIVEDI Primary Care Provider Assessment No assessment recorded. Plan of Treatment Reminders Order Date Submit Date Provider Last Modified By Organization Details Last Modified Time Details Appointments None recorded. Lab urinalysis, dipstick 2022 023 [email or web address] [facility], [address] [place] [address], [phone], 3 15:55:58 test, urine 2022 023 [facility], [address] [place] [address], [phone], 3 15:55:59 Referral emergency medicine referral - Shortness of breath, chest ray shows pneumonia and plurel effusion. Need further evaluation and treatment. 2022 023 [email or web address] [facility] (Emergency Room), [address] [place] [address], [phone], 3 16:07:04 Procedures None recorded. Surgeries None recorded. Imaging XR, chest, 2 view 2022 023 [facility], [address] [place] [address], [place], [address], 3 16:34:48 Medication Orders albuterol sulfate 2.5 mg/3 mL (0.083 %) solution for nebulizatio n 2022 023 [email or web address] Not available 15:55:58 ipratropium bromide 0.02 % solution for inhalation 2022 023 [email or web address] Not available 15:55:58 Patient TargetsNo targets recorded. Patient Instructions Encounter Date Encounter Id Patient Instructions Last Modified By Organization Details Last Modified Time 03/08/2023 [id number] peak flow* [email or web address] Not available 02/24 15:55:58 [...] = Negati ve Not Available britney zapien [address], [place], [address], 03/08/2023 14:07:19 03/08/20 23 03/08/2023 pregn tresa test, urine Unknown Analyte negati ve Not Available 2099britney zapien [address], [place], [address], 03/08/2023 14:07:19 03/08/2003/08/2023 urina lysis , dipst ick Unknown Analyte Normal = light yellow Not Available britney zapien [address], [place], [address], 03/08/2023 14:07:12 03/08/2003/08/2023 urina lysis , dipst ick Unknown Analyte Yellow Not Available aury [address], [place], [address], 03/08/2023 14:07:12 03/08/20 23 03/08/2023 urina lysis , dipst ick Unknown Analyte Normal = clear Not Available britney zapien [address], [place], [address], 03/08/2023 14:07:12 03/08/2003/08/2023 urina lysis , dipst ick Unknown Analyte Clear Not Available aury [address], [place], [address], 03/08/2023 14:07:12 03/08/2003/08/2023 urina lysis , dipst ick Unknown Analyte Normal = negati ve Not Available britney zapien [address], [place], [address], 03/08/2023 14:07:12 03/08/2003/08/2023 urina lysis , dipst ick Unknown Analyte Negati ve Not Available britney zapien [address], [place], [address], 03/08/2023 14:07:12 03/08/20 23 03/08/2023 urina lysis , dipst ick Unknown Analyte Normal = Negati ve Not Available britney zapien [address], [place], [address], 03/08/2023 14:07:12 03/08/2003/08/2023 urina lysis , dipst ick Unknown Analyte Negati ve Not Available [facility] [address], [place], [address], 03/08/2023 14:07:12 03/08/2003/08/2023 urina lysis , dipst ick Unknown Analyte Normal = Negati ve Not Available britney [address], [place], [address], 03/08/2023 14:07:12 03/08/2003/08/2023 urina lysis , dipst ick Unknown Analyte Negati ve Not Available britney zapien [address], [place], [address], 03/08/2023 14:07:12 03/08/2003/08/2023 urina lysis , dipst ick Unknown Analyte Normal = 1.010, 1.015, 1.020 Not Available britney zapien [address], [place], [address], 03/08/2023 14:07:12 03/08/20 23 03/08/2023 urina lysis , dipst ick Unknown Analyte 1.020 Not Available [address], [place], [address], 03/08/2023 14:07:12 03/08/2003/08/2023 urina lysis , dipst ick Unknown Analyte Normal = Negati ve Not Available [facility] [address] [place] [address], [place], [address], 03/08/2023 14:07:12 03/08/20 23 03/08/2023 urina lysis , dipst ick Unknown Analyte Negati ve Not Available [facility]ney [facility], [place], [address], 03/08/2023 14:07:12 03/08/2003/08/2023 urina lysis , dipst ick Unknown Analyte Normal = 6.5, 7.0, 7.5, 8.0 Not Available [facility]ritney zapien [facility], [place], [address], 03/08/2023 14:07:12 03/08/2003/08/2023 urina lysis , dipst ick Unknown Analyte 7.5 Not Available aury [address], [place], [address], 03/08/2023 14:07:12 03/08/2003/08/2023 urina lysis , dipst ick Unknown Analyte Normal = Negati ve Not Available [facility] [address] [place] [address], [place], [address], 03/08/2023 14:07:12 03/08/2003/08/2023 urina lysis , dipst ick Unknown Analyte Negati ve Not Available [facility] [address] [place] [address], [place], [address], 03/08/2023 14:07:12 03/08/2003/08/2023 urina lysis , dipst ick Unknown Analyte Normal = 0.2, 1.0 Not Available [address] [place] [address], [place], [address], 03/08/2023 14:07:12 03/08/20 23 03/08/2023 urina lysis , dipst ick Unknown Analyte 0.2 E.U./d L Not Available [address] [place] [address], [place], [address], 03/08/2023 14:07:12 03/08/2003/08/2023 urina lysis , dipst ick Unknown Analyte Normal = Negati ve Not Available [address] [place] [address], [place], [address], 03/08/2023 14:07:12 03/08/2003/08/2023 urina lysis , dipst ick Unknown Analyte Negati ve Not Available [address], [place], [address], 03/08/2023 14:07:12 03/08/2003/08/2023 urina lysis , dipst ick Unknown Analyte Normal = Negati ve Not Available [address] [place] [address], [place], [address], 03/08/2023 14:07:12 03/08/2003/08/2023 urina lysis , dipst ick Unknown Analyte Negati ve Not Available [address] [place] [address], [place], [address], 03/08/2023 14:07:12 03/08/2003/08/2023 XR, chest , 2 view No observ ation record ed. [email or web address] [facility] [address] [facility] [place], [address], 03/08/2023 16:34:48 Result Notes None recorded. Problems Name Problem SNOMED Code Status Onset Date Resolution Date Notes Provider Name and Address Organization Details Recorded Time Asthma 116963813 Active 023 Zara Beach devyn PA - [facility] 03/08/2023 14:00:14 Problem Notes None recorded. Procedures Surgical History Date Name Laterality Status Provider Name and Address Organization Details Recorded Time Nebulizer Treatment completed Zara Beach PA - [facility] 03/08/2023 14:58:40 Imaging Results Imaging Date Name Status LastModified by Organiz ation Details LastModified Time 03/08/2023 XR, chest, 2 view completed [id number] [address] [facility] [place], [address], 03/08/2023 16:34:48 Procedure Notes None recorded. Medical [...] height Body mass index (BMI) Body weight Pain severity - 0-10 verbal numeric rating [Score] - Reported Oxygen saturation Oxygen saturation in Arterial blood by Pulse oximetry Heart rate Respiratory rate Body temperature Systolic blood pressure Diastolic blood pressure Provider Name and Address Organization Details Last Updated DateTime 3 152.4 cm 24.6 kg/m2 82549.6 4 g 8 97 % 97 % 103 /min 18 /min 99.4 [degF] 118 mm[Hg] 73 mm[Hg] Zara Hdez [facility] 14:03:15 Social History Question Answer Notes LastModified by Organizat ion Details LastModified Time Tobacco Smoking Status Never Smoker CHRIS Tong [facility] 03/08/2023 14:00:37 What Is Your Level [...] quadrivalent, preservative 7 completed Zara shepard PA Lemuel [facility] 03/08/2023 13:58:49 Influenza, split virus, quadrivalent, preservative 5 completed CHRIS Tong [facility] 03/08/2023 13:58:49 COVID-19, mRNA, LNP-S, PF, 30 mcg/0.3 mL dose 1 completed Zara Monfette null, PA - [facility] 03/08/2023 13:58:49 COVID-19, mRNA, LNP-S, PF, 30 mcg/0.3 mL dose 1 completed Zara Monfette null, PA - [facility] 03/08/2023 13:58:49 Pneumococcal conjugate PCV20, polysaccharide RUS353 conjugate, adjuvant, PF 3 completed Zara Monfette [...] SNOMED-CT Code Diagnosis ICD10 Code Diagnosis Note [id number] [address] [address] [address] 08/02/2021 18:22:35 08/02/2021 20:01:03 [id number] [facility] [address] [address] 08/01/2019 13:05:26 08/01/2019 13:58:00 [id number] [place] Ho[place] [facility] [address] [place] [address] 03/08/2023 13:47:32 03/08/2023 16:07:03 Community acquired pneumonia 860004514 J18.9 Dyspnea at rest 72681135 7 R06.00 Health Concerns Section Related Observation LastModified by Organization Detai ls LastModified Time None Recorded Concern Status LastModified by Organization Details LastModified Time None Recorded Advance Directives Directive None Recorded Payers Encounter Date Sequence Insurance Name Policy Number Policy Weinberg Covered Member ID Weinberg Member ID Guarantor Name 03/08/2023 1 [facility] NET PLAN (MEDICAID HMO) SHIRLEY Mosher [id number] Elizabeth oMsher Notes Date Note Type Note Provider Name [...] Prior Treatmentoral decongestant Chilo Hopper NP [address] [place], [address], [place] - [facility] 03/08/2023 16:31:34 OBGyn Episode No OBEpisode recorded.
--- OUTSIDE RECORDS SUMMARY | 2025-01-27 18:35 | XMS_ITS | Encounter Summary ---
Author Organization [facility] Address [address] [place] [address] Phone Care Team Providers Care Phone Circuit Operator Name Role Phone Mely Whittington MD Primary Care Provider Encounter Details Date Type Department Care Team (Late st Contact Info) Description 06/08/2017 Documentation [facility] [address] [place] [address] Family Medicine, Physician [address] [place], [place] [phone] Social History Tobacco Use Types Packs/Day Years [...] on filedocumented in this encounter Care Teams Phone Circuit Operator Relationship Specialty Start Date End Date Mely Whittington MD [address] [place] [address] [place] [address] PCP - General 07/06/17 02/25/23 documented as of this encounter
--- OUTSIDE RECORDS SUMMARY | 2025-01-27 18:35 | XMS_ITS | Clinical Summary ---
Author Organization [facility] Address [address] [place] [phone] Phone Care Team Providers Care Open Pit Quarry Supervisor Name Role Phone Rose Barba MD Primary Care Provider [phone] Allergies No known active allergies Medications budesonide-formot Bud (SYMBICORT) 160-4.5 mcg/actuation inhaler Inhale 2 Puffs into the lungs 2 times daily. Active apixaban (ELIQUIS) 5 mg tablet Take by mouth. Activ e albuterol sulfate (ProAir RespiClick) 90 mcg/actuation aerosol powdr breath activated Inhale into the lungs. Active etonogestrel-elut ing contraceptive device 68 mg implant subdermal implant [...] say she has an EBUS scheduled at [facility] by Dr. Perez for next week after [...] how she ends up proceeding over at [facility]. Assessment & Plan (12/08/2024 10:28 AM EST): [...] AM EST Office Visit Thoracic Surgery - [address] [phone] Zelda White MD Hilar lymphadenopathy (Primary Dx); Mediastinal mass 11/13/2024 12:00 PM EST - 11/13/2024 2:30 PM EST Surgery [facility] [address] [place] [phone] Zelda White MD Bronchoscopy and Mediastinoscopy [70331 (CPT??) +3 more] 11/13/2024 11:54 AM EST Anesthesia Event [facility] [address] [place] [phone] Jessica Mims MD Chang, Ling, CRNA 11/13/2024 11:00 AM EST - 11/13/2024 3:22 PM EST Hospital Encounter [facility] [address] [place] [phone] Zelda White MD Mediastinal mass; Hilar lymphadenopathy Discharge Disposition: Home or Self Care 10/31/2024 Telephone Thoracic Surgery - [facility] [address] [phone] Zelda White MD Procedure (Surgery ) 10/30/2024 11:30 AM EST Office Visit Thoracic Surgery - [facility] [address] [phone] Zelda White MD Mediastinal mass (Primary Dx); Hilar lymphadenopathy; Pulmonary infiltrates from Last 3 Months Surgical History Surgery [...] ed Physical Abuse 11/13/2024 Verbal Abuse 11/13/2024 Comments No Sex and Gender Information Value Date Recorded Sex Assigned at Female 11/06/2024 11:34 AM EST Legal Sex Female 5:09 PM EST Gender Identity Female 11/06/2024 11:34 AM EST Sexual Orientation Straight 11/13/2024 10 :58 AM EST Obstetrics History Comments HAS IMPLANTED CONTROL Last [...] Patients (6 to 64 Years) Completed 02/20/2023 Meningococcal B Vacine Aged Out No lo nger eligible based on patient's age to complete this topic RSV Immunization Patients Under 20 months Aged Out No longer eligible based on patient's age to complete this topic Medical Devices Implanted Type Area Bone Tender Device Identifier Shelf Expiration Date Model / Serial / Lot Drsg Hemostat 4x8in Abs Ster Surgicel - Sn/A - [id number] Implanted:Qty: 1 on 11/13/2024 by Zelda White MD at [facility] Hemostasis N/A: Mediastinum [employer] 1949 / N/A / N/A [...] ENDOTRACHEAL(NO CHARGE) Routine 11/13/2024 12:15 PM EST WI BRONCHOSCOPY RIGID/FLEXIBLE DIAGNOSTIC W/CELL WASHING 11/13/2024 11:54 AM EST Mediastinal mass Hilar lymphadenopathy Case Notes WI BRONCHOSCOPY RIGID/FLEXIBLE W/EBUS >=3 MEDIASTINAL/HILAR LYMPH NODES 11/13/2024 11:54 AM EST Mediastinal mass Hilar lymphadenopathy Case Notes WI MEDIASTINOSCOPY WITH LYMPH NODE BIOPSY 11/13/2024 11:54 AM EST Mediastinal mass Hilar lymphadenopathy Case Notes WI MEDIASTINOSCOPY INCLUDES MEDIASTINAL MASS BIOPSY 11/13/2024 11:54 [...] 11:38 AM EST Mediastinal mass Hilar lymphadenopathy from Last 3 Months Results * Culture tissue with gram stain (11/13/2024 12:46 PM EST) Culture, Tissue No growth aerobically and anaerobically at 5 days. 11/18/2024 8:40 AM EST [facility] Gram Stain Result No polymorphonuclear leukocytes, No epithelial cells, and No organisms noted 11/18/2024 8:40 AM EST [facility] Tissue Lymph node specimen / Unknown 11/13/2024 12:46 PM EST 11/13/2024 1:02 PM EST us Zelda White MD LAB MICROBIOLOGY - GENERAL ORDER TIFFANIE Final Result [facility] [address] [place] [address], [place] [phone] * Tissue grind, digestion and deconvolution (11/13/2024 12:46 PM EST) Tissue Grind/Digestio n/Decon Performed 12/27/2024 12:05 PM EST [facility] Tissue Lymph node specimen / Unknown 11/13/2024 12:46 PM EST 11/13/2024 1:02 PM EST Narrative [facility] - 12/27/2024 12:05 PM EST Performed at: ??01 - [facility] [address] ??[id number] Sandwich Hand: Naz Nair MD, Phone: ??[phone] Zelda White MD LAB PATHOLOGY ORDERABLES Edited Result - Final [facility] * Culture, afb and smear with reflex to identification and susceptibility (11/13/2024 12:46 PM EST) AFB Specimen Processing Tissue Grinding and Digestion/De contaminatio n 12/27/2024 12:05 PM EST [facility] Acid Fast Smear Negative 12/27/2024 12:05 PM EST [facility] Acid Fast Culture Negative 12/27/2024 12:05 PM EST [facility] Comment:No acid fast bacilli isolated after 6 weeks. Tissue Lymph node specimen / Unknown 11/13/2024 12:46 PM EST 11/13/2024 1:02 PM EST Narrative [facility] - 12/27/2024 12:05 PM EST Performed at: ??01 - [facility] [address] ??[id number] Sandwich Hand: Naz Nair MD, Phone: ??[phone] us Zelda White MD LAB MICROBIOLOGY - GENERAL ORDER TIFFANIE Final Result [facility] * Acid fast bacilli stain (11/13/2024 12:46 PM EST) AFB Stain Result No Acid fast bacilli seen on direct smear (Fuchsin method, 1000x) No Acid Fast Bacilli seen on direct smear 11/13/2024 8:42 PM EST [facility] Tissue Lymph node specimen / Unknown 11/13/2024 12:46 PM EST 11/13/2024 1:02 PM EST us Zelda White MD LAB MICROBIOLOGY - GENERAL ORDER TIFFANIE Final Result Performing Organization Address City/[facility]/ZIP Co de Phone Number [facility] [address] [place] [address], [place] [phone] * Culture fungal, other (11/13/2024 12:46 PM EST) Pathologist [facility] Culture, Fungus Negative for Fungus after 4 Weeks 12/11/2024 2:05 PM EST [facility] Tissue Lymph node specimen / Unknown 11/13/2024 12:46 PM EST 11/13/2024 1:01 PM EST us Zelda White MD LAB MICROBIOLOGY - GENERAL ORDER TIFFANIE Final Result Performing Organization Address City/[facility]/ZIP Co de Phone Number [facility] [address] [place] [address], [place] [phone] * Flow cytometry (11/13/2024 12:39 PM EST) Flow Cytometry Interpretation Lymph node, pretracheal and subcarinal (combined specimen), flow cytometry: No monotypic B cell population identified. Most of the lymphocytes are CD3-positive T cells including CD4-positive and CD8-positive subsets without diagnostic phenotypic aberrancy. There is no discrete population of [id number] blasts identified. See comment. Comment: The overall findings show no monotypic B-cell population and no aberrant T-cell population. The flow cytometry findings are compatible with a reactive lymphoid population. However, a negative flow cytometry study does not fully exclude the possibility of a neoplastic process. Correlation with morphologic findings in the accompanying lymph node biopsy specimens is recommended. (See separate report [id number].) Please note that myeloid disorders cannot be reliably excluded by flow cytometry. Clinical correlation recommended. SPECIMEN: Mediastinal Mass ([id number]) VIABILITY: 77.6% TOTAL CELL YIELD: 0.9x106/mL IMMUNOPHENOTYPIC [...] 0.9% of total. There is no significant [id number] blast population seen. REVIEW OF TRAYLOR-STAINED CYTOSPIN: The cytospin shows a polymorphous lymphoid population including a predominance of small lymphocytes with scattered larger lymphoid cells. Numerous degenerated cells are also present. Antibodies (17 markers): CD2, CD3, CD4, CD5, CD7, CD8, CD10, CD19, CD20, CD34, CD38, CD45, CD56, CD200, [place], Lambda, TCR gamma-delta. Flow cytometry reviewed and signed by Dr. Shaggy Burgos at [facility] ([place], [place]). 11/17/2024 4:51 PM EST [facility] Disclaimer This test was developed [...] clinical laboratory testing. 11/17/2024 4:51 PM EST [facility] Tissue Lymph node specimen / Unknown 11/13/2024 12:39 PM EST 11/13/2024 1:13 PM EST us Zelda White MD LAB BLOOD ORDERABLES Final Resul t [facility] [address] [place] [address], * Tissue exam (11/13/2024 12:39 PM EST) [...] B cells and T cells with generally government sales manager distribution of CD20 positive B cells (predominantly [...] site remains, additional sampling could be considered. 4 4:15 PM [facility] Gross Description A. Lymph Node, Right paratracheal lymph node: Labeled right par lymph node . Received fresh, in saline, with Telfa, is a 1.0 x 0.6 x 0.2 cm aggregate of soft, knight glistening fragments of sommer tissue and minimal blood clot. The specimen is sectioned. Senior Quality Methods Specialist portions tissue and liquid are placed in RPMI from parts A & B and submitted to [place], [place], for flow cytometric studies. The balance [...] minimal blood clot. The specimen is sectioned. Senior Quality Methods Specialist portions tissue and liquid are placed in RPMI from parts A & B and submitted to [place], [place], for flow cytometric studies. The balance of the specimen is submitted in one cassette, multiple pieces (one H&E, +15 unstained slides and one H&E). TS 4 4:15 PM [facility] Disclaimer NOTE: The immunohistochemical tests and in situ hybridization tests were developed and their performance characteristics were determined by [facility]. They have not been cleared [...] fixed and paraffin embedded. 4 4:15 PM [facility] Tissue Lymph node specimen / Unknown 11/13/2024 12:39 PM EST 11/13/2024 1:01 PM EST Tissue specimen (specimen) Lymph node specimen / Unknown 11/13/2024 12:44 PM EST 11/13/2024 1:01 PM EST us Zelda White MD LAB PATHOLOGY ORDERABLES Final R esult [facility] [address] [place] [address], [place] [phone] * TH AN ENDOTRACHEAL(NO CHARGE) (11/13/2024 12:15 [...] laryngoscopy Endotracheal tube insertion site: oral Blade: Albreto Blade size: #3 ETT size (mm): 8.5 [...] 11/13/2024 12:03 PMStop Time: 11/13/2024 12:03 PM us Jessica Mims MD ANESTHESIA ORDERABLES Final Resu lt * (ABNORMAL) CBC auto differential (11/06/2024 11:38 AM EST) WBC 8.5 4.8 - 10.8 K/mcL LAB HEMETOLOGY METHOD 11/06/2024 12:22 PM [facility] RBC 4.40 3.80 - 4.80 M/mcL LAB HEMETOLOGY METHOD 11/06/2024 12:22 PM [facility] Hemoglobin 12.4 11.5 - 16.0 g/dL LAB HEMETOLOGY METHOD 11/06/2024 12:22 PM [facility] Hematocrit 37.8 35.0 - 47.0 % LAB HEMETOLOGY METHOD 11/06/2024 12:22 PM [facility] MCV 85.1 79.0 - 98.0 FL LAB HEMETOLOGY METHOD 11/06/2024 12:22 PM [facility] MCH 27.9 27.0 - 32.0 pcg LAB HEMETOLOGY METHOD 11/06/2024 12:22 PM [facility] MCHC 32.8 32.0 - 37.0 g/dL LAB HEMETOLOGY METHOD 11/06/2024 12:22 PM [facility] RDW 16.3(H) 11.0 - 15.0 % LAB HEMETOLOGY METHOD 11/06/2024 12:22 PM [facility] Platelets 264 130 - 400 K/mcL LAB HEMETOLOGY METHOD 11/06/2024 12:22 PM [facility] MPV 11.2(H) 7.0 - 11.0 FL LAB HEMETOLOGY METHOD 11/06/2024 12:22 PM [facility] NRBC 0.0 <1.0 % LAB HEMETOLOGY METHOD 11/06/2024 12:22 PM [facility] NRBC Absolute 0.00 <0.10 K/mcL LAB HEMETOLOGY METHOD 11/06/2024 12:22 PM [facility] Neutrophils Relative 60.2 % LAB HEMETOLOGY METHOD 11/06/2024 12:22 PM [facility] Lymphocytes Relative 29.6 % LAB HEMETOLOGY METHOD 11/06/2024 12:22 PM [facility] Monocytes Relative 6.4 % LAB HEMETOLOGY METHOD 11/06/2024 12:22 PM [facility] Eosinophils Relative 2.8 % LAB HEMETOLOGY METHOD 11/06/2024 12:22 PM [facility] Basophils Relative 0.6 % LAB HEMETOLOGY METHOD 11/06/2024 12:22 PM [facility] Immature Granulocytes Relative 0.4 % LAB HEMETOLOGY METHOD 11/06/2024 12:22 PM [facility] Neutrophils Absolute 5.09 1.50 - 7.00 K/mcL LAB HEMETOLOGY METHOD 11/06/2024 12:22 PM [facility] Lymphocytes Absolute 2.50 1.00 - 5.00 K/mcL LAB HEMETOLOGY METHOD 11/06/2024 12:22 PM [facility] Monocytes Absolute 0.54 0.20 - 1.00 K/mcL LAB HEMETOLOGY METHOD 11/06/2024 12:22 PM [facility] Eosinophils Absolute 0.24 0.00 - 0.50 K/mcL LAB HEMETOLOGY METHOD 11/06/2024 12:22 PM [facility] Basophils Absolute 0.05 0.00 - 0.20 K/mcL LAB HEMETOLOGY METHOD 11/06/2024 12:22 PM [facility] Immature Granulocytes Absolute 0.03 0.00 - 0.03 K/mcL LAB HEMETOLOGY METHOD 11/06/2024 12:22 PM [facility] Blood Venous blood specimen / Unknown Venipuncture / Unknown 11/06/2024 11:38 AM EST 11/06/2024 12:21 PM EST us Zelda White MD LAB BLOOD ORDERABLES Final Resul t Performing Organization Address City/[facility]/ZIP Co de Phone Number [facility] [address] [place] [address], [place] [phone] * Activated partial thromboplastin time (11/06/2024 11:38 AM EST) aPTT 35.8 24.1 - 39.3 sec LAB COAGULATION METHOD 11/06/2024 12:08 PM EST [facility] Blood Venous blood specimen / Unknown Venipuncture / Unknown 11/06/2024 11:38 AM EST 11/06/2024 11:56 AM EST us Zelda White MD LAB BLOOD ORDERABLES Final Resul t Performing Organization Address [facility] Co de Phone Number [facility] [address] [place] [address], [place] [phone] * Prothrombin time with INR (11/06/2024 11:38 AM EST) Protime 13.0 10.6 - 13.9 sec LAB COAGULATION METHOD 11/06/2024 12:08 PM EST [facility] INR 1.0 LAB COAGULATION METHOD 11/06/2024 12:08 PM EST [facility] Blood Venous blood specimen / Unknown Venipuncture / Unknown 11/06/2024 11:38 AM EST 11/06/2024 11:56 AM EST us Zelda White MD LAB BLOOD ORDERABLES Final Resul t Performing Organization Address City/[facility]/ZIP Co de Phone Number [facility] [address] [place] [address], [place] [phone] * Type and screen (11/06/2024 11:38 AM EST) ABO Group B 11/06/2024 1:04 PM EST [facility] Rh Type Positive 11/06/2024 1:04 PM [facility] Antibody Screen Negative 11/06/2024 1:04 PM [facility] Blood Venous blood specimen / Unknown Venipuncture / Unknown 11/06/2024 11:38 AM EST 11/06/2024 11:56 AM EST us Zelda White MD LAB BLOOD BANK TEST ORDERABLES F inal Result [facility] [address] [place] [address], * (ABNORMAL) Basic metabolic panel (11/06/2024 11:38 AM EST) Sodium 142 133 - 145 mmol/L LAB CHEMISTRY METHOD 11/06/2024 3:04 PM [facility] Potassium 4.1 3.5 - 5.5 mmol/L LAB CHEMISTRY METHOD 11/06/2024 3:04 PM [facility] Chloride 111(H) 96 - 110 mmol/L LAB CHEMISTRY METHOD 11/06/2024 3:04 PM [facility] CO2 25 21 - 32 mmol/L LAB CHEMISTRY METHOD 11/06/2024 3:04 PM [facility] Anion Gap 6 3 - 11 LAB CHEMISTRY METHOD 11/06/2024 3:04 PM [facility] Glucose 82 70 - 100 mg/dL LAB CHEMISTRY METHOD 11/06/2024 3:04 PM [facility] BUN 5 5 - 25 mg/dL LAB CHEMISTRY METHOD 11/06/2024 3:04 PM [facility] Creatinine 0.91 0.50 - 1.10 mg/dL LAB CHEMISTRY METHOD 11/06/2024 3:04 PM [facility] eGFR 89 >=60 mL/min/1. 73m2 LAB CHEMISTRY METHOD 11/06/2024 3:04 PM EST [facility] Comment:Calculation based on the??Chronic Kidney Disease Epidemiology Collaboration (CKD-EPI) equation refit??without adjustment for race. BUN/Creatinine Ratio 5.5 LAB CHEMISTRY METHOD 11/06/2024 3:04 PM EST [facility] Calcium 9.7 8.5 - 10.5 mg/dL LAB CHEMISTRY METHOD 11/06/2024 3:04 PM EST [facility] Blood Venous blood specimen / Unknown Venipuncture / Unknown 11/06/2024 11:38 AM EST 11/06/2024 11:56 AM EST us Zelda White MD LAB BLOOD ORDERABLES Final Resul t [facility] [address] [place] [address], from Last 3 Months Insurance [facility] [employer] Advance Directives * Full Code - Default [...] currently active code status orders. Care Teams Open Pit Quarry Supervisor Relationship Specialty Start Date End Date Rose Barba MD [address] [place] [address] PCP - General Internal Medicine 02/23/22
--- OUTSIDE RECORDS SUMMARY | 2025-01-27 18:35 | XMS_ITS | Clinical Summary ---
Author Organization [facility] Address [address] [place] [phone] Phone Care Team Providers Care Liner Assembler Name Role Phone Unavailable Primary Care Provider Unavailabl e Allergies No known active allergies Medications Etonogestrel (NEXPLANON) 68 MG implant Inject under the skin. Active Active Problems Problem Noted Date Diagnosed Date Sleep disorder 07/03/2013 Acanthosis nigricans 06/21/2011 Immunizations Immunization Administration Dates Next Due DTP 01/19/1999, 8,1997,08/03 [...] complete this topic Procedures * Due to [facility] law, this organization might not be sharing sensitive test results. Procedure Name Priority Date/Time Associated Diagnosis Comments CHLAMYDIA AND GONORRHEA, AMPLIFIED Routine 08/16/2018 11:48 AM EDT Encounter for screening examination for infectious disease from Last 3 Months or Most Recently Relevant to Health Maintenance Results * Due to [place] law, this organization might not be sharing sensitive test results. * Chlamydia and Gonorrhea, Amplified (08/16/2018 11:48 AM EDT) Chlamydia Trachomatis, DNA Probe NEGATIVE (NEG) [facility] Comment: No Chlamydia Trachomatis RNA detected in this patient's sample ? (REFERENCE RANGE/NORMAL VALUE: NOT DETECTED) ? Note: This test uses transcription manager- mediated amplification method to detect rRNA from C. Trachomatis URINE GC AMP PROBE NEGATIVE (NEG) [facility] Comment: No Neisseria Gonorrhoeae RNA detected in this patient's sample ? (REFERENCE RANGE/NORMAL VALUE: NOT DETECTED) ? NOTE: This test uses transcription manager-mediated amplification method to detect rRNA from N.Gonorrhoeae. [...] without risk of sexual abuse. Consult the [facility] if needed. Contact phone number . Therapeutic failure or success cannot be determined with the Aptima Combo2 assay since nucleic acid may persist following appropriate antimicrobial therapy. The Centers for Disease Control and Prevention (CDC) recommends confirmatory retesting using culture or a different nucleic acid amplification test when positive results occur, if indicated. Testing performed or reported by [facility], a Service of [facility], [facility] [place] [address] CLIA [id number] Olya Rich MD, Roundhouse Worker Urine 08/16/2018 11:4 8 AM EDT 08/16/2018 10:30 PM EDT us Wale Mendes MD LAB MICROBIOLOGY - GENERAL OR DERABLES Final Result [facility] from Last 3 Months or Most Recently Relevant to Health Maintenance Insurance [facility] NON PCC
--- OUTSIDE RECORDS SUMMARY | 2025-01-27 18:35 | XMS_ITS | Encounter Summary ---
Author Organization [facility] Address [address] [place] [address] Phone Care Team Providers Care Associate Financial Representative Name Role Phone Mely Whittington MD Primary Care Provider Encounter Details Date Type Department Care Team (Late st Contact Info) Description 12/13/2016 Documentation [facility] [facility] [address] [place] [address] Family Medicine, Physician [address], [place] [phone] Social History Tobacco Use Types Packs/Day Years [...] on filedocumented in this encounter Care Teams Associate Financial Representative Relationship Specialty Start Date End Date Mely Whittington MD [address] [place] [address] [place] [id number] PCP - General 07/06/17 02/25/23 documented as of this encounter
== END 2025-01-27 15:13 | disposition home or self-care (01) ==
PROVIDERS: PCP Internal Medicine; Visit Provider Internal Medicine Pulmonary Disease
DX: J45.909 Unspecified asthma, uncomplicated (principal)
CPT/HCPCS: 99213

== ENCOUNTER → 2025-01-27 14:41 | Outpatient (BNVA) | payer OTHER, SELFPAY | PROVIDERS: PCP Internal Medicine; Visit Provider Internal Medicine Pulmonary Disease | DX: J45.909 Unspecified asthma, uncomplicated (principal) | CPT/HCPCS: 99212 ==

== ENCOUNTER 2025-03-10 15:17 | Outpatient (REF) | payer OTHER, SELFPAY ==
[2025-03-11 11:23] LABS: Influenza A PCR NEGATIVE (Negative); Influenza B PCR NEGATIVE (Negative); Resp Syncy Virus RNA Qual PCR NEGATIVE (Negative); SARS COV2 PCR INHOUSE NEGATIVE (Negative)
--- OUTSIDE RECORDS SUMMARY | 2025-03-11 12:24 | XMS_ITS | Encounter Summary ---
Author Organization [facility] Address [address] [place] [address] Phone Care Team Providers Care Transcripter Name Role Phone Mely Whittington MD Primary Care Provider Encounter Details Date Type Department Care Team (Late st Contact Info) Description 07/17/2013 Documentation [facility] [place] [address] [place] [address] Family Medicine, Physician [address] [place], [place] [phone] Social History Tobacco Use Types Packs/Day Years [...] on filedocumented in this encounter Care Teams Transcripter Relationship Specialty Start Date End Date Mely Whittington MD [address] [place] [address] PCP - General 07/06/17 02/25/23 documented as of this encounter
--- OUTSIDE RECORDS SUMMARY | 2025-03-11 12:24 | XMS_ITS | Encounter Summary ---
Author Organization [facility] Address [address] [place] [address] Phone Care Team Providers Care Collar Setter Overlock Name Role Phone Mely Whittington MD Primary Care Provider Encounter Details Date Type Department Care Team (Late st Contact Info) Description 06/01/2017 Documentation [facility] [place] [address] [place] [address] Family Medicine, Physician [address] [place], [place] [phone] Social History Tobacco Use Types Packs/Day Years [...] on filedocumented in this encounter Care Teams Collar Setter Overlock Relationship Specialty Start Date End Date Mely Whittington MD [address] [place] [address] [place] [address] PCP - General 07/06/17 02/25/23 documented as of this encounter
--- OUTSIDE RECORDS SUMMARY | 2025-03-11 12:24 | XMS_ITS | Encounter Summary ---
Author Organization [facility] Address [address] [place] [address] Phone Care Team Providers Care Vineyardist Name Role Phone Mely Whittington MD Primary Care Provider Encounter Details Date Type Department Care Team (Late st Contact Info) Description 12/13/2016 Documentation [facility] [place] [address] [place] [address] Family Medicine, Physician [address], [place] [phone] Social History Tobacco Use Types Packs/Day Years [...] on filedocumented in this encounter Care Teams Vineyardist Relationship Specialty Start Date End Date Mely Whittington MD [address] [place] [address] [place] [address] PCP - General 07/06/17 02/25/23 documented as of this encounter
--- OUTSIDE RECORDS SUMMARY | 2025-03-11 12:24 | XMS_ITS | Clinical Summary ---
Author Organization [facility] Address [address] [place] [address] Phone Care Team Providers Care Foundation Director Name Role Phone Unavailable Primary Care Provider [...] complete this topic Procedures * Due to [facility] law, this organization might not be sharing sensitive test results. Procedure Name Priority Date/Time Associated Diagnosis Comments CHLAMYDIA AND GONORRHEA, AMPLIFIED Routine 08/16/2018 11:48 AM EDT Encounter for screening examination for infectious disease from Last 3 Months or Most Recently Relevant to Health Maintenance Results * Due to [employer] law, this organization might not be sharing sensitive test results. * Chlamydia and Gonorrhea, Amplified (08/16/2018 11:48 AM EDT) Chlamydia Trachomatis, DNA Probe NEGATIVE (NEG) [facility] Comment: No Chlamydia Trachomatis RNA detected in this patient's sample ? (REFERENCE RANGE/NORMAL VALUE: NOT DETECTED) ? Note: This test uses assistant finance manager- mediated amplification method to detect rRNA from C. Trachomatis URINE GC AMP PROBE NEGATIVE (NEG) [facility] Comment: No Neisseria Gonorrhoeae RNA detected in this patient's sample ? (REFERENCE RANGE/NORMAL VALUE: NOT DETECTED) ? NOTE: This test uses assistant finance manager-mediated amplification method to detect rRNA from [...] without risk of sexual abuse. Consult the [facility] if needed. Contact phone number . Therapeutic failure or success cannot be determined with the Aptima Combo2 assay since nucleic acid may persist following appropriate antimicrobial therapy. The Centers for Disease Control and Prevention (CDC) recommends confirmatory retesting using culture or a different nucleic acid amplification test when positive results occur, if indicated. Testing performed or reported by [facility], a Service of [facility], [facility] [place] [address] CLIA [id number] Olya Rich MD, Window Caser Urine 08/16/2018 11:4 8 AM EDT 08/16/2018 10:30 PM EDT us Wale Mendes MD LAB MICROBIOLOGY - GENERAL OR DERABLES Final Result [facility] from Last 3 Months or Most Recently Relevant to Health Maintenance Insurance [facility] NON PCC
--- OUTSIDE RECORDS SUMMARY | 2025-03-11 12:24 | XMS_ITS | Clinical Summary ---
Author Organization [facility] Address [address] [place] [address] Phone Care Team Providers Care Resident Doctor Name Role Phone Rose Barba MD Primary Care Provider [phone] Allergies No known active allergies Medications budesonide-formot [...] say she has an EBUS scheduled at [facility] by Dr. Perez for next week after [...] how she ends up proceeding over at [facility]. Assessment & Plan (12/08/2024 10:28 AM EST): [...] this topic Medical Devices Implanted Type Area Silverware Cleaner Device Identifier Shelf Expiration Date Model / Serial / Lot Drsg Hemostat 4x8in Abs Ster Surgicel - Sn/A - [id number] Implanted:Qty: 1 on 11/13/2024 by Zelda White MD at [facility] Hemostasis N/A: Mediastinum [employer] 1949 / N/A / N/A Insurance [facility] Advance Directives * Full Code [...] currently active code status orders. Care Teams Resident Doctor Relationship Specialty Start Date End Date Rose Barba MD [address] [place] [address] PCP - General Internal Medicine 02/23/22
--- OUTSIDE RECORDS SUMMARY | 2025-03-11 12:24 | XMS_ITS | Encounter Summary ---
Author Organization [facility] Address [address] [place] [address] Phone Care Team Providers Care Manager Business Banking Name Role Phone Mely Whittington MD Primary Care Provider [phone] Encounter Details Date Type Department Care Team (Late st Contact Info) Description 07/12/2017 Conversion Encounter [facility] - [address] [address] Social History Tobacco Use Types Packs/Day Years [...] on filedocumented in this encounter Care Teams Manager Business Banking Relationship Specialty Start Date End Date Mely Whittington MD [address] [place] [address] PCP - General 07/06/17 02/25/23 documented as of this encounter
--- OUTSIDE RECORDS SUMMARY | 2025-03-11 12:24 | XMS_ITS | Encounter Summary ---
Author Organization [facility] Address [address] [place] [address] Phone Care Team Providers Care Aircraft Sheet Metal Mechanic Name Role Phone Mely Whittington MD Primary Care Provider [phone] Encounter Details Date Type Department Care Team (Late st Contact Info) Description 06/08/2017 Documentation [facility] [place] [address] [place] [address] Family Medicine, Physician [address], [place] [phone] Social History Tobacco Use Types Packs/Day Years [...] on filedocumented in this encounter Care Teams Aircraft Sheet Metal Mechanic Relationship Specialty Start Date End Date Mely Whittington MD [address] [place] [address] [place] [address] PCP - General 07/06/17 02/25/23 documented as of this encounter
== END 2025-03-10 15:18 | disposition home or self-care (01) ==
LOC: HO.LNP 15:17
PROVIDERS: PCP Internal Medicine; Visit Provider Physician Assistant
DX: J06.9 Acute upper respiratory infection, unspecified (principal); R50.9 Fever, unspecified
CPT/HCPCS: 0241U; 99212

== ENCOUNTER 2025-03-10 15:17 | Outpatient (AMB) | payer OTHER, SELFPAY ==
--- NOTE | 2025-03-10 15:51 | MHC.OFFWIV ---
Intake Vital Signs 03/10/25 15:52 Weight 127 lb BP 104/60 Blood Pressure Location Lt brachial Position Sitting Pulse 95 Pulse Source Pulse Oximeter Temp 100 F Temp Source Oral Pulse Oximetry (%) 100 Oxygen Delivery Method Room Air Intake Visit Reasons: EP Asthma problems/sinus Intake Note: Patient here for chest congestion, body aches, yellow saliva/mucus and cough that has been present for a couple of days now. She states her boyfriend was sick last week unsure of what he had but must have caught it. Patient Tobacco Use Status: Never used Tobacco Allergies No Known Allergies Allergy (Verified 03/10/25 15:55) Do you need a note to return to daycare/school/sports/work: Yes HPI HPI Comments History of Present Illness Details This is a 29-year-old female with a past medical history of left upper extremity DVT and asthma currently maintained on Eliquis presenting for evaluation of chest congestion, body aches and cough that she has had for the past 1 day. Patient states she has been using her inhaler more frequently without relief of her symptoms. Patient states her boyfriend was sick last week with similar symptoms. Patient has not taken any medication for treatment of her fever. [facility] Medical History (Updated 03/10/25 @ 16:21 by Verona Quiroz PA-C) Ground glass opacity present on imaging of lung Lung mass Generalized anxiety disorder History of irritable bowel syndrome History of depression History of COVID-19 Mild intermittent asthma COVID-19 Surgical History S/P bronchoscopy with biopsy No pertinent past surgical history Family History Mother No problems noted. Father No problems noted. Social History Household Members: Significant Other Housing: House Alcohol intake: never Patient Tobacco Use Status: Never used Tobacco e-Cigarette/Vaping Use: Never Used Second Hand Smoke Exposure: No Substance Use Type: Marijuana Advance Directives Date on File: 06/11/24 service: No Current occupational status: employed Cognitive needs: No Hearing needs: No Vision needs: Yes Review of Systems Const All systems reviewed & are unremarkable except as noted in HPI and below Eyes Reports as per HPI ENT Reports no additional complaints, Denies otalgia, Denies facial pain, Reports nasal congestion and Reports sore throat Card Reports dyspnea Resp Reports cough, Denies hemoptysis and Reports dyspnea GI Reports no additional complaints Reports no additional complaints Musc Reports no additional complaints Skin/Breast Reports system reviewed and no additional complaints, except as documented Neuro Reports no additional complaints Psych Reports no additional complaints Endo Reports no additional complaints Gerald/Lymph Reports no additional complaints Aller/Immun Reports no additional complaints Physical Exam Vital Signs: Last Vital Signs Temp 100 F 03/10/25 15:52 Pulse 95 03/10/25 15:52 BP 104/60 03/10/25 15:52 Pulse Ox 100 03/10/25 15:52 Oxygen Delivery Method Room Air 03/10/25 15:52 Patient is febrile Const General: cooperative, healthy appearing, comfortable, no acute distress, well developed, alert, awake and Physically active Nutritional Appearance: average body habitus Orientation/consciousness: patient oriented x3 Limitations: no limitations HEENT Head: Yes normal to inspection and Yes normocephalic Ears: hearing grossly normal bilaterally, external ears normal, TM's normal bilaterally and EAC's normal General nose exam: Normal external nose present Face and sinus: Yes normal facial exam and Yes sinuses nontender Mouth: Normal oral and palatal mucosa present, oropharynx normal and moist mucous membranes Throat: Yes posterior oropharynx normal (There is no edema, erythema or exudates of the posterior oropharynx) Eyes General: appearance normal, both eyes and all related structures Visual Stokes: normal visual stokes by confrontation Alignment and Position: alignment normal Periorbital: periorbital findings normal Conjunctivae: conjunctivae normal Neck Lymphatic: no lymphadenopathy noted Resp Effort & Inspection: normal respiratory effort, able to speak in complete sentences, abnormal respiratory pattern, no audible wheezes, Actively coughing, respiratory effort not decreased, no nasal flaring and not tachypneic Auscultation: clear to auscultation bilaterally Cardio Rate: regular rate Rhythm: regular rhythm Skin General skin exam: no rashes or lesions noted Neuro General: patient oriented x3 Psych Appearance: grossly normal Mental Status: mental status grossly normal Insight: Good insight present (Psych) Judgement: Good judgement present (Psych) Assessment & Plan Assessment & Plan (1) Febrile illness: Comment: Patient is afebrile and in no acute distress. Patient will be tested for influenza, COVID-19 and RSV. She is instructed to take Tylenol as needed for her fevers and myalgias as well as staying very well hydrated. Code(s): R50.9 - Fever, unspecified Plan: SARS panel is ordered and results are pending. Tylenol for fever. Follow up as needed. Orders: Orders SARS-CoV2/FLU/RSV Today J06.9 - Acute upper respiratory infection, unspecified Coding Level of Care Code Est Pt Level 3 (49398) Diagnoses Febrile illness R50.9 Time Spent (min) 20
[2025-03-10 15:52] VITALS: BP 104/60; PULSE 95; TEMP 37.7; O2SAT 100
--- OUTSIDE RECORDS SUMMARY | 2025-03-10 18:30 | XMS_ITS | Data Portability ---
Author Organization [facility], [facility] Address [address] [place] [address] Care Team Providers Care Etch Operator Semiconductor Wafers Name Role Phone MELVIN TRIVEDI Primary Care Provider Assessment No assessment recorded. Plan of Treatment Reminders Order Date Submit Date Provider Last Modified By Organization Details Last Modified Time Details Appointments None recorded. Lab urinalysis, dipstick 2022 023 [email or web address] 20995[facility], [address] [place] [address], [phone], 3 15:55:58 test, urine 2022 023 [facility], [address] [place] [address], [phone], 3 15:55:59 Referral emergency medicine referral - Shortness of breath, chest ray shows pneumonia and plurel effusion. Need further evaluation and treatment. 2022 023 [email or web address] [facility] (Emergency Room), [address] [place] [address], [id number], 3 16:07:04 Procedures None recorded. Surgeries None recorded. Imaging XR, chest, 2 view 2022 023 [facility], [address] [place] [address], [place], [address], 3 16:34:48 Medication Orders albuterol sulfate 2.5 mg/3 mL (0.083 %) solution for nebulizatio n 2022 023 [email or web address] Not available 15:55:58 ipratropium bromide 0.02 % solution for inhalation 2022 023 [email or web address] Not available 15:55:58 Patient TargetsNo targets recorded. Patient Instructions Encounter Date Encounter Id Patient Instructions Last Modified By Organization Details Last Modified Time 03/08/2023 [id number] peak flow* [email or web address] Not available 02/24 15:55:58 [...] = Negati ve Not Available britney zapien [address], [place], [address], 03/08/2023 14:07:19 03/08/20 23 03/08/2023 pregn tresa test, urine Unknown Analyte negati ve Not Available 2099britney zapien [address], [place], [address], 03/08/2023 14:07:19 03/08/2003/08/2023 urina lysis , dipst ick Unknown Analyte Normal = light yellow Not Available britney zapien [address], [place], [address], 03/08/2023 14:07:12 03/08/2003/08/2023 urina lysis , dipst ick Unknown Analyte Yellow Not Available aury [address], [place], [address], 03/08/2023 14:07:12 03/08/20 23 03/08/2023 urina lysis , dipst ick Unknown Analyte Normal = clear Not Available britney zapine [address], [place], [address], 03/08/2023 14:07:12 03/08/2003/08/2023 urina lysis , dipst ick Unknown Analyte Clear Not Available aury [address], [place], [address], 03/08/2023 14:07:12 03/08/2003/08/2023 urina lysis , dipst ick Unknown Analyte Normal = negati ve Not Available britney zapien [address], [place], [address], 03/08/2023 14:07:12 03/08/2003/08/2023 urina lysis , dipst ick Unknown Analyte Negati ve Not Available britney zapien [address], [place], [address], 03/08/2023 14:07:12 03/08/20 23 03/08/2023 urina lysis , dipst ick Unknown Analyte Normal = Negati ve Not Available britney zapien [address], [place], [address], 03/08/2023 14:07:12 03/08/2003/08/2023 urina lysis , dipst ick Unknown Analyte Negati ve Not Available [facility] [address], [place], [address], 03/08/2023 14:07:12 03/08/2003/08/2023 urina lysis , dipst ick Unknown Analyte Normal = Negati ve Not Available britney [address], [place], [address], 03/08/2023 14:07:12 03/08/2003/08/2023 urina lysis , dipst ick Unknown Analyte Negati ve Not Available britney zapien [address], [place], [address], 03/08/2023 14:07:12 03/08/2003/08/2023 urina lysis , dipst ick Unknown Analyte Normal = 1.010, 1.015, 1.020 Not Available britney zapien [address], [place], [address], 03/08/2023 14:07:12 03/08/20 23 03/08/2023 urina lysis , dipst ick Unknown Analyte 1.020 Not Available [address], [place], [address], 03/08/2023 14:07:12 03/08/2003/08/2023 urina lysis , dipst ick Unknown Analyte Normal = Negati ve Not Available [facility] [address] [place] [address], [place], [address], 03/08/2023 14:07:12 03/08/20 23 03/08/2023 urina lysis , dipst ick Unknown Analyte Negati ve Not Available [facility]ritney [facility], [place], [address], 03/08/2023 14:07:12 03/08/2003/08/2023 urina lysis , dipst ick Unknown Analyte Normal = 6.5, 7.0, 7.5, 8.0 Not Available [facility]ritney [facility]ien [facility], [place], [address], 03/08/2023 14:07:12 03/08/2003/08/2023 urina lysis , dipst ick Unknown Analyte 7.5 Not Available aury [address], [place], [address], 03/08/2023 14:07:12 03/08/2003/08/2023 urina lysis , dipst ick Unknown Analyte Normal = Negati ve Not Available [facility] [address] [place] [address], [place], [address], 03/08/2023 14:07:12 03/08/2003/08/2023 urina lysis , dipst ick Unknown Analyte Negati ve Not Available [facility] [address] [place] [address], [place], [address], 03/08/2023 14:07:12 03/08/2003/08/2023 urina lysis , dipst ick Unknown Analyte Normal = 0.2, 1.0 Not Available [address] [place] [address], [place], [address], 03/08/2023 14:07:12 03/08/20 23 03/08/2023 urina lysis , dipst ick Unknown Analyte 0.2 E.U./d L Not Available [address] [place] [address], [place], [address], 03/08/2023 14:07:12 03/08/2003/08/2023 urina lysis , dipst ick Unknown Analyte Normal = Negati ve Not Available [address] [place] [address], [place], [address], 03/08/2023 14:07:12 03/08/2003/08/2023 urina lysis , dipst ick Unknown Analyte Negati ve Not Available [address], [place], [address], 03/08/2023 14:07:12 03/08/2003/08/2023 urina lysis , dipst ick Unknown Analyte Normal = Negati ve Not Available [address] [place] [address], [place], [address], 03/08/2023 14:07:12 03/08/2003/08/2023 urina lysis , dipst ick Unknown Analyte Negati ve Not Available [address] [place] [address], [place], [address], 03/08/2023 14:07:12 03/08/2003/08/2023 XR, chest , 2 view No observ ation record ed. [email or web address] [facility] [address] [facility] [place], [address], 03/08/2023 16:34:48 Result Notes None recorded. Problems Name Problem SNOMED Code Status Onset Date Resolution Date Notes Provider Name and Address Organization Details Recorded Time Asthma 009257402 Active 023 Zara Beach devyn PA - [facility] 03/08/2023 14:00:14 Problem Notes None recorded. Procedures Surgical History Date Name Laterality Status Provider Name and Address Organization Details Recorded Time Nebulizer Treatment completed Zara Beach PA - [facility] 03/08/2023 14:58:40 Imaging Results Imaging Date Name Status LastModified by Organiz ation Details LastModified Time 03/08/2023 XR, chest, 2 view completed [facility] [address] [facility] [place], [address], 03/08/2023 16:34:48 Procedure Notes None recorded. Medical [...] Updated DateTime 3 152.4 cm 24.6 kg/m2 37723.6 4 g 8 97 % 97 % [...] [facility] 03/08/2023 13:58:49 Pneumococcal conjugate PCV20, polysaccharide ZUW210 conjugate, adjuvant, PF 3 completed Zara Monfette [...] SNOMED-CT Code Diagnosis ICD10 Code Diagnosis Note [id number] [address] [address] [address] 08/02/2021 18:22:35 08/02/2021 20:01:03 [id number] [facility] [address] [address] 08/01/2019 13:05:26 08/01/2019 13:58:00 [id number] [place] [facility] [address] [place] [address] 03/08/2023 13:47:32 03/08/2023 16:07:03 Community acquired pneumonia 007588936 J18.9 Dyspnea at rest 22491855 7 R06.00 Health Concerns Section Related Observation LastModified by Organization Detai ls LastModified Time None Recorded Concern Status LastModified by Organization Details LastModified Time None Recorded Advance Directives Directive None Recorded Payers Encounter Date Sequence Insurance Name Policy Number Policy Weinberg Covered Member ID Weinberg Member ID Guarantor Name 03/08/2023 1 [facility] NET PLAN (MEDICAID HMO) SHIRLEY Mosher [id number] Elizabeth Mosher Notes Date Note Type Note [...] Hopper NP [address] [place], [address], [place] - [facility] 03/08/2023 16:31:34 OBGyn Episode No OBEpisode recorded.
--- OUTSIDE RECORDS SUMMARY | 2025-03-10 18:30 | XMS_ITS | Clinical Summary ---
Author Organization [facility] Address [address] [place] [address] Phone Care Team Providers Care Roller Die Cutting Machine Operator Name Role Phone Rose Barba MD Primary Care Provider [phone]- [phone] Allergies No known active allergies Medications budesonide-formot [...] Date Diagnosed Date Deep vein thrombosis (DVT) o f upper extremity (CMS/HCC V24, CMS/HCC V28) 11/13/2024 Hilar lymphadenopathy 08/07/2024 Mediastinal mass 08/07/2024 Overview [...] say she has an EBUS scheduled at [facility] by Dr. Perez for next week after [...] how she ends up proceeding over at [place]. Assessment & Plan (12/08/2024 10:28 AM EST): [...] Pulmonary infiltrates 08/07/2024 Asthma Overview (10/30/2024): DX:Asthma Surgical History Surgery Date Site/Laterality Comments OR EBUS LUNG BIOPSY LUNG MASS Medical History Medical History Date Comments Asthma DX:Asthma History of DVT (deep vein thrombosis) DX:History of DVT (deep vein thrombosis) Generalized anxiety disorder DX: Generalized anxiety disorder Lung mass DX:Lung mass History of depression DX:History of depression Deep vein thrombosis (CMS/HC C V24, CMS/HCC V28) Shortness of breath Social History Tobacco Use [...] season) 2024 12/21/2021, 06/17/2021, 05/27/2021 Influenza Vaccine (Season Ended) 2025 08/16/2018, 12/07/2016, 08/27/2015, Additional history exists DTaP,Tdap,and Td [...] to 64 Years) Completed 02/20/2023 Meningococcal B Vaccine Aged Out No l onger eligible based on patient's age to complete this topic RSV Immunization Patients Under 20 months Aged Out No longer eligible based on patient's age to complete this topic Medical Devices Implanted Type Area Electronics Engineering Manager Device Identifier Shelf Expiration Date Model / Serial / Lot Drsg Hemostat 4x8in Abs Ster Surgicel - Sn/A - [id number] Implanted:Qty: 1 on 11/13/2024 by Zelda White MD at [facility] Hemostasis N/A: Mediastinum [employer] 1949 / N/A / N/A Insurance [facility] [place] [address] Advance Directives * Full Code - Default [...] currently active code status orders. Care Teams Roller Die Cutting Machine Operator Relationship Specialty Start Date End Date Rose Barba MD [address] [place] [address] PCP - General Internal Medicine 02/23/22
--- OUTSIDE RECORDS SUMMARY | 2025-03-10 18:30 | XMS_ITS | Encounter Summary ---
Author Organization [facility] Address [address] [place] [address] Phone Care Team Providers Care Supervisor Instant Potato Processing Name Role Phone Mely Whittington MD Primary Care Provider [phone] Encounter Details Date Type Department Care Team (Late st Contact Info) Description 06/01/2017 Documentation [facility] Family Medicine [address] [place] [address] Family Medicine, Physician [address], [place] [phone] Social History Tobacco Use Types Packs/Day Years [...] on filedocumented in this encounter Care Teams Supervisor Instant Potato Processing Relationship Specialty Start Date End Date Mely Whittington MD [address] [place] [address] [place] [address] PCP - General 07/06/17 02/25/23 documented as of this encounter
--- OUTSIDE RECORDS SUMMARY | 2025-03-10 18:30 | XMS_ITS | Encounter Summary ---
Author Organization [facility] Address [address] [place] [address] Phone Care Team Providers Care Tattoo And Body Artist Name Role Phone Mely Whittington MD Primary Care Provider Encounter Details Date Type Department Care Team (Late st Contact Info) Description 12/13/2016 Documentation [facility] Family Medicine [address] [place] [address] Family Medicine, Physician [address], [place] [phone] Social History Tobacco Use Types Packs/Day Years [...] on filedocumented in this encounter Care Teams Tattoo And Body Artist Relationship Specialty Start Date End Date Mely Whittington MD [address] [place] [address] [place] [address] PCP - General 07/06/17 02/25/23 documented as of this encounter
--- OUTSIDE RECORDS SUMMARY | 2025-03-10 18:30 | XMS_ITS | Clinical Summary ---
Author Organization [facility] Address [address] [place] [address] Phone Care Team Providers Care Apple Picker Name Role Phone Unavailable Primary Care Provider [...] complete this topic Procedures * Due to [facility] law, this organization might not be sharing sensitive test results. Procedure Name Priority Date/Time Associated Diagnosis Comments CHLAMYDIA AND GONORRHEA, AMPLIFIED Routine 08/16/2018 11:48 AM EDT Encounter for screening examination for infectious disease from Last 3 Months or Most Recently Relevant to Health Maintenance Results * Due to [place] [employer] law, this organization might not be sharing sensitive test results. * Chlamydia and Gonorrhea, Amplified (08/16/2018 11:48 AM EDT) Chlamydia Trachomatis, DNA Probe NEGATIVE (NEG) [facility] Comment: No Chlamydia Trachomatis RNA detected in this patient's sample ? (REFERENCE RANGE/NORMAL VALUE: NOT DETECTED) ? Note: This test uses copy coordinator- mediated amplification method to detect rRNA from C. Trachomatis URINE GC AMP PROBE NEGATIVE (NEG) [facility] Comment: No Neisseria Gonorrhoeae RNA detected in this patient's sample ? (REFERENCE RANGE/NORMAL VALUE: NOT DETECTED) ? NOTE: This test uses copy coordinator-mediated amplification method to detect rRNA from N.Gonorrhoeae. [...] without risk of sexual abuse. Consult the [facility] if needed. Contact phone number . Therapeutic failure or success cannot be determined with the Aptima Combo2 assay since nucleic acid may persist following appropriate antimicrobial therapy. The Centers for Disease Control and Prevention (CDC) recommends confirmatory retesting using culture or a different nucleic acid amplification test when positive results occur, if indicated. Testing performed or reported by [facility], a Service of [facility], [facility] [place] [address] CLIA [id number] Olya Rich MD, Director Drug Safety Urine 08/16/2018 11:4 8 AM EDT 08/16/2018 10:30 PM EDT us Wale Mendes MD LAB MICROBIOLOGY - GENERAL OR DERABLES Final Result [facility] from Last 3 Months or Most Recently Relevant to Health Maintenance Insurance [facility] NON PCC
--- OUTSIDE RECORDS SUMMARY | 2025-03-10 18:30 | XMS_ITS | Encounter Summary ---
Author Organization [facility] Address [address] [place] [address] Phone Care Team Providers Care Food And Nutrition Supervisor Name Role Phone Mely Whittington MD Primary Care Provider Encounter Details Date Type Department Care Team (Late st Contact Info) Description 06/08/2017 Documentation [facility] Family Medicine [address] [place] [address] Family Medicine, Physician [address], [place] [phone] Social History Tobacco Use Types Packs/Day Years [...] on filedocumented in this encounter Care Teams Food And Nutrition Supervisor Relationship Specialty Start Date End Date Mely Whittington MD [address] [place] [address] [place] [address] PCP - General 07/06/17 02/25/23 documented as of this encounter
--- OUTSIDE RECORDS SUMMARY | 2025-03-10 18:30 | XMS_ITS | Encounter Summary ---
Author Organization [facility] Address [address] [place] [address] Phone Care Team Providers Care Mangle Operator Garments Name Role Phone Mely Whittington MD Primary Care Provider Encounter Details Date Type Department Care Team (Late st Contact Info) Description 07/17/2013 Documentation [facility] [place] Medicine [address] [place] [address] Family Medicine, Physician [address] [place], [place] [phone] Social History Tobacco Use Types Packs/Day Years [...] on filedocumented in this encounter Care Teams Mangle Operator Garments Relationship Specialty Start Date End Date Mely Whittington MD [address] [place] [address] PCP - General 07/06/17 02/25/23 documented as of this encounter
--- OUTSIDE RECORDS SUMMARY | 2025-03-10 18:30 | XMS_ITS | Encounter Summary ---
Author Organization [facility] Address [address] [place] [address] Phone Care Team Providers Care Bobbin Stripper Name Role Phone Mely Whittington MD Primary Care Provider [phone] Encounter Details Date Type Department Care Team (Late st Contact Info) Description 07/12/2017 Conversion Encounter [facility] - [address] [address] Social History Tobacco Use Types Packs/Day Years [...] on filedocumented in this encounter Care Teams Bobbin Stripper Relationship Specialty Start Date End Date Mely Whittington MD [address] [place] [address] PCP - General 07/06/17 02/25/23 documented as of this encounter
== END 2025-03-10 16:23 | disposition home or self-care (01) ==
PROVIDERS: PCP Internal Medicine; Visit Provider Physician Assistant
DX: R50.9 Fever, unspecified (principal)

== ENCOUNTER 2025-06-08 13:59 | Outpatient (REF) | payer OTHER, SELFPAY ==
--- NOTE | ~2025-06-08 | US_ITS ---
EXAMINATION: US TRIPLEX UPPER EXTREMITY, LEFT CLINICAL INFORMATION: Follow-up left basilic vein clot COMPARISON: None available. TECHNIQUE: Color-flow triplex imaging with spectral analysis and compression Doppler was performed on the left upper extremity. FINDINGS: The left internal jugular, subclavian, and axillary veins demonstrated normal phasic flow and spectral doppler waveforms . There is no compressibility in the left basilic vein. There is normal phasic flow and compressibility in the left brachial vein.. US/US venous duplex UE LT IMPRESSION: Chronic occlusive thrombus left basilic vein. Remaining interrogated veins demonstrated no acute deep venous thrombosis. Electronically signed by: Preston Hollis MD 06/08/2025 03:10 PM EDT
--- OUTSIDE RECORDS SUMMARY | 2025-06-08 15:17 | XMS_ITS | Clinical Summary ---
Author Organization [facility] Address [address] [place] [address] Phone Care Team Providers Care Angle Shear Set Up Operator Name Role Phone Rose Barba MD Primary Care Provider [phone] Allergies No known active allergies Medications budesonide-formot [...] say she has an EBUS scheduled at [facility] by Dr. Perez for next week after [...] how she ends up proceeding over at [facility]. Assessment & Plan (12/08/2024 10:28 AM EST): [...] 88 12/08/2024 10:25 AM EST Temperature 36.8 C (98.2 F) 12/08/2024 10:25 AM EST Respiratory Rate 18 12/08/2024 10:25 AM EST [...] 2024 12/21/2021, 06/17/2021, 05/27/2021 Influenza Vaccine (#1) 2025 8, 12/07/2016, 08/27/2015, Additional history exists DTaP,Tdap,and Td Vaccines (8 - Td or Tdap) 05/26/2029 05/26/2019, 01/27/2009, 08/23/2001, Additional history exists HIB Vaccines Completed 06/30/1999, 11/26, 1997, Additional history exists IPV Vaccines Completed 08/23/2001, 11/26, 1997, Additional history exists MMR Vaccines Completed 08/23/2001, 06/30/1999 Varicella Vaccines Completed 01/27/2009, 06/29/1998 HPV Vaccines Completed 01/10/2011, 01/2010, 01/27/2009 Hepatitis A Vaccines Completed 10/16/2013, 06/21/20 11 Meningococcal ACWY Vaccine Completed 03/04/2015, Hepatitis B Vaccines Completed 05/05/2022, 08/16/2018, 1997, Additional history exists Pneumococcal Vaccine: Pediatrics (0 to 5 Years) and At-Risk Patients (6 to 49 Years) Completed 02/20/2023 Meningococcal B Vaccine Aged Out No l onger eligible based on patient's age to complete this topic RSV Immunization Patients Under 20 months Aged Out No longer eligible based on patient's age to complete this topic Medical Devices Implanted Type Area Veterinary Toxicologist Device Identifier Shelf Expiration Date Model / Serial / Lot Drsg Hemostat 4x8in Abs Ster Surgicel - Sn/A - [id number] Implanted:Qty: 1 on 11/13/2024 by Zelda White MD at [facility] Hemostasis N/A: Mediastinum [employer] 1949 / N/A / N/A Insurance [facility] Advance Directives * Full [...] currently active code status orders. Care Teams Angle Shear Set Up Operator Relationship Specialty Start Date End Date Rose Barba MD [address] [place] [address] PCP - General Internal Medicine 02/23/22
--- OUTSIDE RECORDS SUMMARY | 2025-06-08 15:17 | XMS_ITS | Encounter Summary ---
Author Organization [facility] Address [address] [place] [address] Phone Care Team Providers Care Reinforcement Maker Name Role Phone Mely Whittington MD Primary Care Provider Encounter Details Date Type Department Care Team (Late st Contact Info) Description 07/12/2017 Conversion Encounter [facility] - [address] [address] Social History Tobacco Use Types Packs/Day Years [...] on filedocumented in this encounter Care Teams Reinforcement Maker Relationship Specialty Start Date End Date Mely Whittington MD [address] [place] [address] PCP - General 07/06/17 02/25/23 documented as of this encounter
--- OUTSIDE RECORDS SUMMARY | 2025-06-08 15:18 | XMS_ITS | Data Portability ---
Author Organization [facility] Address [address] [place] [address] Care Team Providers Care Laborer/Key Man Name Role Phone MELVIN TRIVEDI Primary Care Provider Assessment No assessment recorded. Plan of Treatment Reminders Order Date Submit Date Provider Last Modified By Organization Details Last Modified Time Details Appointments None recorded. Lab urinalysis, dipstick 2022 023 [email or web address][facility], [address] [place] [address], [phone], 3 15:55:58 test, urine 2022 023 [facility] [address] [place] [address], [address] [place] [address], [phone], 3 15:55:59 Referral emergency medicine referral - Shortness of breath, chest ray shows pneumonia and plurel effusion. Need further evaluation and treatment. 2022 023 [email or web address] [facility] (Emergency Room), [address] [place], [address], 3 16:07:04 Procedures None recorded. Surgeries None recorded. Imaging XR, chest, 2 view 2022 023 [facility], [address] [place] [address], [address], 3 16:34:48 Medication Orders albuterol sulfate 2.5 mg/3 mL (0.083 %) solution for nebulizatio n 2022 023 [email or web address] Not available 15:55:58 ipratropium bromide 0.02 % solution for inhalation 2022 023 [email or web address] Not available 15:55:58 Patient TargetsNo targets recorded. Patient Instructions Encounter Date Encounter Id Patient Instructions Last Modified By Organization Details Last Modified Time 03/08/2023 [id number] peak flow* [email or web address] Not available 02/24 15:55:58 Patient instruct ed [...] = Negati ve Not Available britney zapien [address], [place], [address], 03/08/2023 14:07:19 03/08/20 23 03/08/2023 pregn tresa test, urine Unknown Analyte negati ve Not Available britney zapien [address], [place], [address], 03/08/2023 14:07:19 03/08/2003/08/2023 urina lysis , dipst ick Unknown Analyte Normal = light yellow Not Available britney zapien [address], [place], [address], 03/08/2023 14:07:12 03/08/20 23 03/08/2023 urina lysis , dipst ick Unknown Analyte Yellow Not Available aruy [address], [place], [address], 03/08/2023 14:07:12 03/08/2003/08/2023 urina lysis , dipst ick Unknown Analyte Normal = clear Not Available britney zapien [address], [place], [address], 03/08/2023 14:07:12 03/08/2003/08/2023 urina lysis , dipst ick Unknown Analyte Clear Not Available aury [address], [place], [address], 03/08/2023 14:07:12 03/08/2003/08/2023 urina lysis , dipst ick Unknown Analyte Normal = negati ve Not Available britney zapien [address], [place], [address], 03/08/2023 14:07:12 03/08/20 23 03/08/2023 urina lysis , dipst ick Unknown Analyte Negati ve Not Available britney zapien [address], [place], [address], 03/08/2023 14:07:12 03/08/20 23 03/08/2023 urina lysis , dipst ick Unknown Analyte Normal = Negati ve Not Available britney zapien [address], [place], [address], 03/08/2023 14:07:12 03/08/2003/08/2023 urina lysis , dipst ick Unknown Analyte Negati ve Not Available [facility] [address], [place], [address], 03/08/2023 14:07:12 03/08/2003/08/2023 urina lysis , dipst ick Unknown Analyte Normal = Negati ve Not Available britney [address], [place], [address], 03/08/2023 14:07:12 03/08/20 23 03/08/2023 urina lysis , dipst ick Unknown Analyte Negati ve Not Available [facility] [address], [place], [address], 03/08/2023 14:07:12 03/08/20 23 03/08/2023 urina lysis , dipst ick Unknown Analyte Normal = 1.010, 1.015, 1.020 Not Available britney zapien [address], [place], [address], 03/08/2023 14:07:12 03/08/20 23 03/08/2023 urina lysis , dipst ick Unknown Analyte 1.020 Not Available [facility] [address] [place] [address], [place], [address], 03/08/2023 14:07:12 03/08/2003/08/2023 urina lysis , dipst ick Unknown Analyte Normal = Negati ve Not Available [facility], [place], [address], 03/08/2023 14:07:12 03/08/2003/08/2023 urina lysis , dipst ick Unknown Analyte Negati ve Not Available [facility], [place], [address], 03/08/2023 14:07:12 03/08/2003/08/2023 urina lysis , dipst ick Unknown Analyte Normal = 6.5, 7.0, 7.5, 8.0 Not Available [facility], [place], [address], 03/08/2023 14:07:12 03/08/2003/08/2023 urina lysis , dipst ick Unknown Analyte 7.5 Not Available a[facility], [place], [address], 03/08/2023 14:07:12 03/08/2003/08/2023 urina lysis , dipst ick Unknown Analyte Normal = Negati ve Not Available [facility] [address] [place] [address], [place], [address], 03/08/2023 14:07:12 03/08/2003/08/2023 urina lysis , dipst ick Unknown Analyte Negati ve Not Available britney pe [facility], [place], [address], 03/08/2023 14:07:12 03/08/20 03/08/2023 urina lysis , dipst ick Unknown Analyte Normal = 0.2, 1.0 Not Available 2099britney [address], [place], [address], 03/08/2023 14:07:12 03/08/20 23 03/08/2023 urina lysis , dipst ick Unknown Analyte 0.2 E.U./d L Not Available [address] [place] [address], [place], [address], 03/08/2023 14:07:12 03/08/2003/08/2023 urina lysis , dipst ick Unknown Analyte Normal = Negati ve Not Available [address] [place] [address], [place], [address], 03/08/2023 14:07:12 03/08/2003/08/2023 urina lysis , dipst ick Unknown Analyte Negati ve Not Available [address] [place] [address], [place], [address], 03/08/2023 14:07:12 03/08/2003/08/2023 urina lysis , dipst ick Unknown Analyte Normal = Negati ve Not Available [address] [place] [address], [place], [address], 03/08/2023 14:07:12 03/08/2003/08/2023 urina lysis , dipst ick Unknown Analyte Negati ve Not Available [address] [place] [address], [place], [address], 03/08/2023 14:07:12 03/08/20 23 03/08/2023 XR, chest , 2 view No observ ation record ed. [email or web address] [facility] [address] [place], [address], 03/08/2023 16:34:48 Result Notes None recorded. Problems Name Problem SNOMED Code Status Onset Date Resolution Date Notes Provider Name and Address Organization Details Recorded Time Asthma 897081914 Active 023 Zara Beach devyn PA - [facility] 03/08/2023 14:00:14 Problem Notes None recorded. Procedures Surgical History Date Name Laterality Status Provider Name and Address Organization Details Recorded Time Nebulizer Treatment completed Zara Beach PA - [facility] 03/08/2023 14:58:40 Imaging Results None recorded. Procedure Notes None recorded. Medical Equipment None [...] Heart rate Respiratory rate Body temperature Systolic And Diastolic Provider Name and Address Organization Details Last Updated DateTime 3 152.4 cm 24.6 kg/m2 94526.6 4 g 97 % 97 % 103 /min 18 /min 99.4 [degF] 118/73 mm[Hg] Zara Narayanandayday PA - [facility] 3 14:03:15 Social History Question Answer Notes LastModified by [email or web address] Details LastModified Time Tobacco Smoking Status Never Smoker Zara Callowaydusty shepard, PA - [facility] 03/08/2023 14:00:37 Which Illicit Or Recreational Drugs Have You Used? Marijuana Information not available 03/08/2023 Have You Recently Traveled Abroad? No Information not available 03/08/2023 Sex: Unknown Functional Status Question Answer Note LastModified by [email or web address] Details LastModified Time Do you use any illicit or recreational drugs? Yes Information not available 03/08/2023 Do you or have you ever used any other forms of tobacco or nicotine? No Information not available 03/08/2023 What is your level of alcohol consumption? None Information not available 03/08/2023 Mental Status None recorded. Family History Nothing [...] [facility] 03/08/2023 13:58:49 Pneumococcal conjugate PCV20, polysaccharide MYH418 conjugate, adjuvant, PF 3 completed Zara Sultanae null, PA - [facility] 03/08/2023 13:58:49 COVID-19, mRNA, LNP-S, PF, 30 mcg/0.3 mL dose, mejia-sucrose 2 completed Zara Monfette null, PA - [facility] 03/08/2023 13:58:49 Td (adult), 2 Lf tetanus toxoid, preservative free, adsorbed 9 completed Zara Sultanae null, PA - [facility] 03/08/2023 13:58:49 Hep B, adult 2 completed Zara Monbatshevae null, PA - [facility] 03/08/2023 13:58:49 Hep B, adult 8 completed Zara Monrobertotte null, PA - [facility] 03/08/2023 13:58:49 Influenza, split virus, quadrivalent, PF 8 completed Zara Monfette null, PA - [facility] 03/08/2023 13:58:49 Past Encounters Encounter ID Performer Location Encounter Start Date Encounter Closed Date Diagnosis/Indication Diagnosis SNOMED-CT Code Diagnosis ICD10 Code Diagnosis Note [id number] [facility] [address] [place] [address] 08/02/2021 18:22:35 08/02/2021 20:01:03 [id number] [address] [address] [place] [address] 08/01/2019 13:05:26 08/01/2019 13:58:00 [id number] Chilo Hopper [place] [address] [address] [place] [address] 03/08/2023 13:47:32 03/08/2023 16:07:03 Community acquired pneumonia 984215963 J18.9 Dyspnea at rest 66733131 7 R06.00 Health Concerns Section Related Observation LastModified by Organization Detai ls LastModified Time None Recorded Concern Status LastModified by Organization Details LastModified Time None Recorded Advance Directives Directive None Recorded Payers Insurance Date Sequence Insurance Name Policy Number Policy Weinberg Covered Member ID Weinberg Member ID Guarantor Name 03/08/2023 1 [facility] (MEDICAID REPLACEMENT - HMO) SHIRLEY Hoganra Nomi [id number] Elizabeth Nomi 03/08/2023 1 [facility] (MEDICAID HMO) [place] Elizabeth Nomi [id number] Elizabeth Nomi Notes Date Note Type Note Provider Name [...] Prior Treatmentoral decongestant Chilo Hopper NP [address] [place], [address], [place] - [facility] 03/08/2023 16:31:34 OBGyn Episode No OBEpisode recorded.
== END 2025-06-08 14:00 | disposition home or self-care (01) ==
LOC: HO.US 13:59
PROVIDERS: PCP Internal Medicine; Visit Provider Internal Medicine Medical Oncology
DX: I82.622 Acute embolism and thrombosis of deep veins of left upper extremity (principal)
CPT/HCPCS: 93971

== ENCOUNTER → 2025-06-08 14:00 | Outpatient (BNV) | payer OTHER, SELFPAY | PROVIDERS: PCP Internal Medicine; Visit Provider Radiology Diagnostic Radiology | DX: I82.722 Chronic embolism and thrombosis of deep veins of left upper extremity (principal) | CPT/HCPCS: 93971 ==

== ENCOUNTER 2025-11-02 15:03 | Outpatient (AMB) | payer OTHER, SELFPAY ==
--- NOTE | 2025-11-02 15:19 | MHC.PC.OV ---
Vital Signs 11/02/25 15:21 Height 5 ft Weight 128 lb BMI 25.0 BP 110/76 Blood Pressure Location Rt brachial Position Sitting Respiration 16 Pulse 96 Pulse Source Pulse Oximeter Temp 98.2 F Temp Source Oral Pulse Oximetry (%) 98 Oxygen Delivery Method Room Air Intake Visit Reasons: Annual PE Intake Note: Pt is here today for her PE Systems Mgr Required: No Is last menstrual period known: Yes Last menstrual period: 11/09/25 Allergies No Known Allergies Allergy (Verified 11/02/25 15:35) Medication List - Last Reconciled 11/02/25 by Rose Barba MD Aerochamber MV (inhalational spacing device) As directed NS albuterol sulfate 2.5 mg (3 mL) inhalation Q4-6H PRN albuterol sulfate 90 mcg/actuation 2 puffs inhalation Q4-6H PRN budesonide-formoterol 160-4.5 mcg/actuation (Symbicort) 2 puffs inhalation BID etonogestrel (Nexplanon) 68 mg subdermal DAILY ipratropium-albuterol 0.5 mg-3 mg(2.5 mg base)/3 mL 3 mL inhalation Q4-6H PRN montelukast 10 mg PO QPM Tobacco use date assessed: 11/02/25 Dental Screening Dental Screen Date: 11/02/25 Did you have a dental visit in the last 12 months?: No Did you have a dental problem in the last 6 months where you did not have access to dental care?: No Was dental information given to patient?: Patient has dentist HPI Annual PE HPI Details 30-year-old lady with past medical history significant for mild intermittent bronchial asthma, generalized anxiety disorder, here today for her physical exam. She sees [facility] for her routine Pap and pelvic exam, last cervical cancer screening was done in 2022 which came back with benign findings per patient. She is up-to-date with her pneumonia vaccine, received her tetanus diphtheria booster in 2019 but never had a flu shot [facility] Medical History (Updated 11/02/25 @ 15:58 by Rose Barba MD) Hx of deep venous thrombosis Generalized anxiety disorder History of irritable bowel syndrome History of depression History of COVID-19 Mild intermittent asthma COVID-19 Surgical History (Updated 11/02/25 @ 15:58 by Rose Barba MD) S/P bronchoscopy with biopsy Family History Mother No problems noted. Father No problems noted. Social History Household Members: Significant Other Housing: House Alcohol intake: never Patient Tobacco Use Status: Never used Tobacco e-Cigarette/Vaping Use: Never Used Second Hand Smoke Exposure: No Substance Use Type: Marijuana Advance Directives Date on File: 06/11/24 service: No Current occupational status: employed Cognitive needs: No Hearing needs: No Vision needs: Yes Female Reproductive History Menstrual Date of last menstrual period: 11/09/25 Questionnaire PHQ-9 Over the last 2 weeks, how often have you been bothered by any of the following problems? 1. Little interest or pleasure in doing things: not at all 2. Feeling down, depressed, or hopeless: not at all 3. Trouble falling or staying asleep, or sleeping too much: several days 4. Feeling tired or having little energy: several days 5. Poor appetite or overeating: not at all 6. Feeling bad about yourself - or that you are a failure or have let yourself or your family down: not at all 7. Trouble concentrating on things, such as reading the newspaper or watching television: several days 8. Moving or speaking so slowly that other people could have noticed. Or the opposite - being so fidgety or restless that you have been moving around a lot more than usual: not at all 9. Thoughts that you would be better off or of hurting yourself in some way: not at all Total score: 3 Depression Screening Interpretation: Negative Depression Screening Done: Yes 75142 - PHQ-9 Billing: Yes Source: Developed by Drs. Duke Mayberry, Sagrario Cordova, Geoff Fry and colleagues, with an educational allan from [employer]. Thrive Questionnaire Date Thrive assessed: 06/11/24 I am a: Patient What is your living situation today?: I have a place to live, but I am worried about losing it in the future Within the past 12 months, did the food you bought not last and you didn't have the money to get more?: Sometimes True Within the past 12 months, did you worry whether your food would run out before you got money to buy more?: Often true Do you have trouble paying for medicines?: No Do you have trouble getting transportation to medical appointments?: No Do you have trouble paying your heating and electricity bill?: Yes Do you have trouble taking care of your child, family member or friend?: No Do you have trouble with day-to-day activities such as bathing, preparing meals, shopping, managing finances, etc.?: Yes Are you currently unemployed and looking for a job?: No Are you interested in more education?: Yes Please select the resources that you would like help with: Housing/Prison, Food and Utilities Currently or been in a relationship where the following occur: No concerns reported THRIVE Score: 4 AUDIT C Alcohol Use Questionnaire (AUDIT-C) 1. How often do you have a drink containing alcohol?: Monthly or less 2. How many drinks containing alcohol do you have on a typical day when you are drinking?: 1 or 2 3. How often do you have six or more drinks on one occasion?: Never Total Score: 1 NIURKA-7 AMB Questionnaire NIURKA-7 Date NIURKA - 7 assessed: 11/02/25 Feeling nervous, anxious, or on edge: 1 = Several days Not being able to stop or control worryin = Not at all Worrying too much about different things: 1 = Several days Trouble relaxin = Not at all Being so restless that it is hard to sit still: 1 = Several days Becoming easily annoyed or irritable: 1 = Several days Feeling afraid as if something awful might happen: 0 = Not at all Total NIURKA-7 score (0-4 normal; 5-9 mild; 10-14 moderate; 15-21 severe): 4 Source: Developed by Drs. Duke Mayberry, Sagrario Cordova, Geoff Fry and colleagues, with an educational allan from [employer]. NIURKA-7 Assessment Billing NIURKA-7 Assessment Tool: NIURKA-7 Assessment 55145 Review of Systems Const Reports no additional complaints Eyes Reports no additional complaints ENT Reports no additional complaints, Denies otalgia, Denies facial pain, Reports nasal congestion and Reports sore throat Card Denies chest pain at rest, Denies chest pain with activity, Denies rapid heart rate, Denies lightheadedness, Denies dyspnea and Denies dyspnea on exertion Resp Denies cough, Denies hemoptysis, Denies dyspnea and Denies dyspnea on exertion GI Reports no additional complaints Reports no additional complaints and Denies nipple discharge Musc Reports no additional complaints Skin/Breast Denies breast pain, Denies breast mass, Denies new lesions, Denies nipple discharge, Denies rash and Denies unusual bruising Neuro Reports no additional complaints Psych Reports no additional complaints Endo Reports no additional complaints Gerald/Lymph Reports no additional complaints Aller/Immun Reports no additional complaints Physical exam (Primary Care) Vital Signs: Last Vital Signs Temp 98.2 F 11/02/25 15:21 Pulse 96 11/02/25 15:21 Resp 16 11/02/25 15:21 BP 110/76 11/02/25 15:21 Pulse Ox 98 11/02/25 15:21 Oxygen Delivery Method Room Air 11/02/25 15:21 BMI result Body Mass Index 25.0 Tobacco/Smoking Status: Tobacco use Status Tobacco use date assessed 11/02/25 11/02/25 15:25 Patient Tobacco Use Status Never used Tobacco 11/02/25 15:21 Tobacco use type 07/29/24 14:03 e-Cigarette/Vaping Use Never Used 11/02/25 15:21 PHQ-9: PHQ-9 Score PHQ-9: Total score 3 11/02/25 15:53 Depression Screening Interpretation: Negative Thrive Assessment: Date of Thrive Assessment Date Thrive assessed 06/11/24 11/02/25 15:21 Currently or been in a relationship where the following occur: No concerns reported Const General: cooperative, comfortable and no acute distress Orientation/consciousness: patient oriented x3 HENMT Head: Yes normocephalic Eyes General: appearance normal, both eyes and all related structures Neck Neck: Yes supple Chest Chest palpation & inspection: normal inspection of the chest and other Breast/axilla inspection: normal inspection of the breasts and Other (nipple piercing) Breast/axilla palpation: normal palpation of the breasts and normal palpation of the axillae Resp Effort & Inspection: normal respiratory effort, no cough and no stridor Cardio Rhythm: regular rhythm Heart sounds: S1 normal heart sound present and S2 normal heart sound present Bruits: no abdominal aortic bruits GI Inspection: Yes normal to inspection Palpation (GI): No Abdominal aortic bruit present, Soft to palpation, nontender, no guarding and no masses Auscultation: normal bowel sounds General: Yes no CVA tenderness and Yes deferred ( goes to [facility]) Back/Spine/Pelvis Back: no CVA tenderness and No back tenderness Skin General skin exam: no rashes or lesions noted Neuro General: patient oriented x3, tone normal and moves all extremities Psych Appearance: grossly normal and well kempt Mental Status: mental status grossly normal Speech and movement: Normal speech and movement present Affect: normal affect Office Procedures Flu Questionnaire Does the patient have a severe egg allergy?: No Does the patient have severe life threatening allergies?: No Does the patient have a fever or illness today?: No Has the patient ever had Guillain-Franklin Syndrome?: No Has the patient ever had any past reaction to a flu shot?: No Immunizations Fluarix 7171-6005 (PF) 45 mcg (15 mcg x 3)/0.5 mL IM syringe Performing Provider: Rose Barba MD [place] [facility] Administered by: Clarisa Barnett CMA on 11/02/25 15:55 Dose Route Admin Location Dispensed Lot Number Expiration Date [facility] Quotation Clerk 0.5 mL IM Right Deltoid 0.5 mL [id number] 05/25/26 [id number] [employer] VIS Given Date VIS Provided VIS Publication Date 11/02/25 Single Vaccine 24 Eligibility Eligibility Date Funding Source Not [facility] Eligible 11/02/25 Private Coding Level of Care Code Est Pt Prev Care 18-39y(65648) Diagnoses Seasonal allergies J30.2 Mild intermittent asthma without complication J45.20 Asthma complication type: uncomplicated Annual visit for general adult medical examination with abnormal findings Z00.01 Additional Codes NIURKA-7 Assessment Billing - NIURKA-7 Assessment Tool: NIURKA-7 Assessment 44485 ([id number]) PHQ-9 - 19077 - PHQ-9 Billing: Yes ([id number]) Assessment & Plan Assessment & Plan (1) Seasonal allergies: Code(s): J30.2 - Other seasonal allergic rhinitis Category: Medical (2) Mild intermittent asthma: Code(s): J45.20 - Mild intermittent asthma, uncomplicated Category: Medical Qualifiers: Asthma complication type: uncomplicated Qualified Code(s): J45.20 - Mild intermittent asthma, uncomplicated (3) Annual visit for general adult medical examination with abnormal findings: Code(s): Z00.01 - Encounter for general adult medical examination with abnormal findings Orders: Orders Aspartate Amino Transferase Today J30.2 - Other seasonal allergic rhinitis, J45.20 - Mild intermittent asthma, uncomplicated, Z13.220 - Encounter for screening for lipoid disorders, Z86.718 - Personal history of other venous thrombosis and embolism Lipid Panel Today J30.2 - Other seasonal allergic rhinitis, J45.20 - Mild intermittent asthma, uncomplicated, Z13.220 - Encounter for screening for lipoid disorders, Z86.718 - Personal history of other venous thrombosis and embolism Influenza 4792-4600 Immunization Today Z23 - Encounter for immunization Alanine Aminotransferase Today J30.2 - Other seasonal allergic rhinitis, J45.20 - Mild intermittent asthma, uncomplicated, Z13.220 - Encounter for screening for lipoid disorders, Z86.718 - Personal history of other venous thrombosis and embolism
[2025-11-02 15:21] VITALS: BP 110/76; PULSE 96; RESP 16; TEMP 36.8; O2SAT 98; BMI 25.0
--- OUTSIDE RECORDS SUMMARY | 2025-11-03 00:32 | XMS_ITS | Data Portability ---
Author Organization [facility], [address] Address [address] [place] [address] Care Team Providers Care Director Counseling Bureau Name Role Phone MELVIN TRIVEDI Primary Care Provider Assessment No assessment recorded. Plan of Treatment Reminders Order Date Submit Date Provider Last Modified By Organization Details Last Modified Time Details Appointments None recorded. Lab urinalysis, dipstick 2022 023 [email or web address] 20995[facility], [address] [place] [address], [phone], 3 15:55:58 test, urine 2022 023 [facility] [address] [place] [address], [address] [place] [address], [phone], 3 15:55:59 Referral emergency medicine referral - Shortness of breath, chest ray shows pneumonia and plurel effusion. Need further evaluation and treatment. 2022 023 [email or web address] [facility] (Emergency Room), [address] [place], [address], 3 16:07:04 Procedures None recorded. Surgeries None recorded. Imaging XR, chest, 2 view 2022 023 [facility], [address] [place] [address], [address], 3 16:34:48 Medication Orders albuterol sulfate 2.5 mg/3 mL (0.083 %) solution for nebulizatio n 2022 023 [email or web address] Not available 15:55:58 ipratropium bromide 0.02 % solution for inhalation 2022 023 [email or web address] Not available 15:55:58 Patient TargetsNo targets recorded. Patient Instructions Encounter Date Encounter Id Patient Instructions Last Modified By Organization Details Last Modified Time 03/08/2023 [id number] peak flow* [email or web address] Not available 02/24 15:55:58 [...] = Negati ve Not Available britney zapien [address], [place], [address], 03/08/2023 14:07:19 03/08/20 23 03/08/2023 pregn tresa test, urine Unknown Analyte negati ve Not Available britney zapien [address], [place], [address], 03/08/2023 14:07:19 03/08/2003/08/2023 urina lysis , dipst ick Unknown Analyte Normal = light yellow Not Available britney zapien [address], [place], [address], 03/08/2023 14:07:12 03/08/20 23 03/08/2023 urina lysis , dipst ick Unknown Analyte Yellow Not Available aury [address], [place], [address], 03/08/2023 14:07:12 03/08/2003/08/2023 urina lysis , dipst ick Unknown Analyte Normal = clear Not Available britney zapien [address], [place], [address], 03/08/2023 14:07:12 03/08/2003/08/2023 urina lysis , dipst ick Unknown Analyte Clear Not Available aury [address], [place], [address], 03/08/2023 14:07:12 03/08/2003/08/2023 urina lysis , dipst ick Unknown Analyte Normal = negati ve Not Available britney zapien [address], [place], [address], 03/08/2023 14:07:12 03/08/20 23 03/08/2023 urina lysis , dipst ick Unknown Analyte Negati ve Not Available britney zapien [address], [place], [address], 03/08/2023 14:07:12 03/08/20 23 03/08/2023 urina lysis , dipst ick Unknown Analyte Normal = Negati ve Not Available britney zapien [address], [place], [address], 03/08/2023 14:07:12 03/08/2003/08/2023 urina lysis , dipst ick Unknown Analyte Negati ve Not Available [facility] [address], [place], [address], 03/08/2023 14:07:12 03/08/2003/08/2023 urina lysis , dipst ick Unknown Analyte Normal = Negati ve Not Available britney [address], [place], [address], 03/08/2023 14:07:12 03/08/20 23 03/08/2023 urina lysis , dipst ick Unknown Analyte Negati ve Not Available [facility] [address], [place], [address], 03/08/2023 14:07:12 03/08/20 23 03/08/2023 urina lysis , dipst ick Unknown Analyte Normal = 1.010, 1.015, 1.020 Not Available britney zapien [address], [place], [address], 03/08/2023 14:07:12 03/08/20 23 03/08/2023 urina lysis , dipst ick Unknown Analyte 1.020 Not Available [facility] [address] [place] [address], [place], [address], 03/08/2023 14:07:12 03/08/2003/08/2023 urina lysis , dipst ick Unknown Analyte Normal = Negati ve Not Available [facility], [place], [address], 03/08/2023 14:07:12 03/08/2003/08/2023 urina lysis , dipst ick Unknown Analyte Negati ve Not Available [facility], [place], [address], 03/08/2023 14:07:12 03/08/2003/08/2023 urina lysis , dipst ick Unknown Analyte Normal = 6.5, 7.0, 7.5, 8.0 Not Available [facility], [place], [address], 03/08/2023 14:07:12 03/08/2003/08/2023 urina lysis , dipst ick Unknown Analyte 7.5 Not Available a[facility], [place], [address], 03/08/2023 14:07:12 03/08/2003/08/2023 urina lysis , dipst ick Unknown Analyte Normal = Negati ve Not Available [facility] [address] [place] [address], [place], [address], 03/08/2023 14:07:12 03/08/2003/08/2023 urina lysis , dipst ick Unknown Analyte Negati ve Not Available britney pe [facility], [place], [address], 03/08/2023 14:07:12 03/08/20 03/08/2023 urina lysis , dipst ick Unknown Analyte Normal = 0.2, 1.0 Not Available [address] [address], [place], [address], 03/08/2023 14:07:12 03/08/20 23 03/08/2023 urina lysis , dipst ick Unknown Analyte 0.2 E.U./d L Not Available [address] [place] [address], [place], [address], 03/08/2023 14:07:12 03/08/2003/08/2023 urina lysis , dipst ick Unknown Analyte Normal = Negati ve Not Available [address] [place] [address], [place], [address], 03/08/2023 14:07:12 03/08/2003/08/2023 urina lysis , dipst ick Unknown Analyte Negati ve Not Available [address] [place] [address], [place], [address], 03/08/2023 14:07:12 03/08/2003/08/2023 urina lysis , dipst ick Unknown Analyte Normal = Negati ve Not Available [address] [place] [address], [place], [address], 03/08/2023 14:07:12 03/08/2003/08/2023 urina lysis , dipst ick Unknown Analyte Negati ve Not Available [address] [place] [address], [place], [address], 03/08/2023 14:07:12 03/08/20 23 03/08/2023 XR, chest , 2 view No observ ation record ed. [email or web address] [facility] [address] [place], [address], 03/08/2023 16:34:48 Result Notes None recorded. Problems Name Problem SNOMED Code Status Onset Date Resolution Date Notes Provider Name and Address Organization Details Recorded Time Asthma 895242038 Active 023 Zara Beach devyn PA - [...] numeric rating [Score] - Reported Oxygen saturation Heart rate Respiratory rate Body temperature Systolic And Diastolic Provider Name and Address Organization Details Last Updated DateTime 3 152.4 cm 24.6 kg/m2 40237.6 4 g 8 97 % 103 /min 18 /min 99.4 [degF] 118/73 mm[Hg] Zara Narayanandayday PA - [facility] 3 14:03:15 Social History Question Answer Notes LastModified by Artoo Details LastModified Time Tobacco Smoking Status Never Smoker Zara Narayanandayday null, PA - [facility] 03/08/2023 14:00:37 Which Illicit Or Recreational Drugs Have You Used? Marijuana Information not available 03/08/2023 Have You Recently Traveled Abroad? No Information not available 03/08/2023 Sex: Unknown Functional Status Question Answer Note LastModified by Artoo Details LastModified Time Do you use any [...] [facility] 03/08/2023 13:58:49 Pneumococcal conjugate PCV20, polysaccharide PVQ572 conjugate, adjuvant, PF 3 completed Zara Sultanae null, PA - [facility] 03/08/2023 13:58:49 COVID-19, mRNA, LNP-S, PF, 30 mcg/0.3 mL dose, mejia-sucrose 2 completed Zara Sultanae null, [facility] - [facility] [...] Diagnosis SNOMED-CT Code Diagnosis ICD10 Code Diagnosis IMO Codes Diagnosis Note [id number] [facility] [address] [place] [address] 08/02/2021 18:22:35 08/02/2021 20:01:03 [id number] [facility] [address] [place] [address] 08/01/2019 13:05:26 08/01/2019 13:58:00 [id number] Chilo Hopper [place] [address] [address] [place] [address] 03/08/2023 13:47:32 03/08/2023 16:07:03 Community acquired pneumonia 650626719 J18.9 Dyspnea at rest 06384403 7 R06.00 Health Concerns Section Related Observation LastModified by Organization Detai ls LastModified Time None Recorded Concern Status LastModified by Organization Details LastModified Time None Recorded Advance Directives Directive None Recorded Payers Insurance Date Sequence Insurance Name Policy Number Policy Weinberg Covered Member ID Weinberg Member ID Guarantor Name 03/08/2023 1 [facility] (MEDICAID REPLACEMENT - HMO) [place] Elizabeth Nomi [id number] Elizabeth Nomi 03/08/2023 1 [facility] (MEDICAID HMO) [place] Elizabeth Nomi [id number] Elizabeth Nomi Notes Date Note Type Note Provider Name and Address Organization Details Recorded Time 3 text/html Sinus Complaints UCReported by PatientHPIFor location, patient reportssinus pain,facial pain, andsinus pressure. For associated symptoms, patient reportsdifficulty breathing,post nasal drip,nasal passage blockage __, andcoughbut reportsno fever,no nausea or vomiting,no sore throat,no ear fullness,no nasal itching,no eye itching, andno dizziness. For quality, patient reportsworseningbut reportsminimal discomfortandclear. For context, patient reportsworse with environmental exposurebut reportsno recent upper respiratory infection,no recent sick contacts, andnot worse with seasonal allergen exposure. For onset/timing, patient reportsworse in amandworse in pm. For duration, patient reportsfrequent. For severity, patient reportsmoderate. For risk factors, patient reportsno current smoking or tobacco useandno history of nasal trauma. For alleviating factors, patient reportsoral steroids. For aggravating factors, patient reportsworse during an upper respiratory infection (a cold)andworse with excess fatigue. For prior treatment, patient reportsoral decongestant. Shortness of BreathReported by Patient CongestionReported by Patient Chilo Hopper NP [address] [place], [address], [place] - [facility] 03/08/2023 16:31:34 OBGyn Episode No OBEpisode recorded.
--- OUTSIDE RECORDS SUMMARY | 2025-11-03 00:32 | XMS_ITS | Encounter Summary ---
Author Organization [facility] Address [address] [place] [address] Phone Care Team Providers Care Car Sales Representative Name Role Phone Mely Whittington MD Primary Care Provider [phone] Encounter Details Date Type Department Care Team (Late st Contact Info) Description 07/12/2017 Conversion Encounter [facility] - [address] [address] Social History Tobacco Use Types Packs/Day Years [...] on filedocumented in this encounter Care Teams Car Sales Representative Relationship Specialty Start Date End Date Mely Whittington MD [address] [place] [id number] PCP - General 07/06/17 02/25/23 documented as of this encounter
--- OUTSIDE RECORDS SUMMARY | 2025-11-03 00:32 | XMS_ITS | Encounter Summary ---
Author Organization [facility] Address [address] [employer] [facility] [address] [place] [address] Phone Care Team Providers Care Drive In Waiter/Waitress Name Role Phone Rose Barba MD Primary Care Provider Rafael Perez MD Unavailable [phone] Encounter Details Date Type Department Care Team (Late st Contact Info) Description 10/15/2024 Ancillary Orders Virtual Department [address] [place] [address] Zelda White MD [address] [place] [address] Social History Tobacco Use Types Packs/Day Years Used Date Smoking Tobacco: Never Smokeless Tobacco: Never Education Answer Date Recorded Are you interested in more education? Not on jen e 03/24/2023 Are you concerned about learning? Not on file 03/24/2023 No 03/24/2023 No 03/24/2023 Digital Access Answer Date Recorded No 04/24/2023 No 04/24/2023 Reliable internet access at home? Not on file 04/24/2023 Device with a working camera? Not on file Intimate Partner Violence Answer Date R ecorded Are you denied basic needs s uch as food, clothing, or medical care? No 03/05/2023 In the past 12 months have y ou been in a relationship with a person who hurts, threatens, or tries to control you? No 03/05/2023 Are you denied basic needs s uch as food, clothing, or medical care? No 03/05/2023 In the past 12 months have y ou been in a relationship with a person who hurts, threatens, or tries to control you? No 03/05/2023 Comments Unknown Sex and Gender Information Value Date Recorded Sex Assigned at Female 03/08/2023 6:02 PM EDT Legal Sex Female 11:26 AM EDT Gender Identity Female 03/08/2023 6:02 PM EDT Sexual Orientation Straight 09/04/2024 3: 01 PM EDT documented as of this encounter Plan of Treatment Not on file documented as of this encounter Visit Diagnoses Not on filedocumented in this encounter Care Teams Drive In Waiter/Waitress Relationship Specialty Start Date End Date Rose Barba MD [address] [facility] [place] [address] PCP - General Internal Medicine 09/04/24 Rafael Perez MD [address] [facility] [place] [address] Internal Medicine 10/15/24 documented as of this encounter Additional Source Comments The information contained in this document represents components of the legal health record. It is not the complete legal health record.[facility]
--- OUTSIDE RECORDS SUMMARY | 2025-11-03 00:32 | XMS_ITS | Encounter Summary ---
Author Organization [facility] Address [facility] [employer] [facility] [address] [place] [address] Phone Care Team Providers Care Microbiology Teacher Name Role Phone Rose Barba MD Primary Care Provider Rafael Perez MD Unavailable [phone] Encounter Details Date Type Department Care Team (Late st Contact Info) Description 10/15/2024 Procedure Pass [facility], Ct Scan - [address] [address] Social History Tobacco Use Types Packs/Day Years [...] on filedocumented in this encounter Care Teams Microbiology Teacher Relationship Specialty Start Date End Date Rose Barba MD [address] [facility] [address] PCP - General Internal Medicine 09/04/24 Rafael Perez MD [address] [facility] [place] [address] Internal Medicine 10/15/24 documented as of this encounter Additional Source Comments The information contained in this document represents components of the legal health record. It is not the complete legal health record.[facility]
--- OUTSIDE RECORDS SUMMARY | 2025-11-03 00:32 | XMS_ITS | Clinical Summary ---
Author Organization [facility] Address [address] [facility] [address] [place] [address] Phone Care Team Providers Care Software Deployment Engineer Name Role Phone Rose Barba MD Primary Care Provider Rafael Perez MD Unavailable [phone] Allergies No known active allergies Medications albuterol 2.5 mg/0.5 mL nebulizer solution Take 0.5 mL (2.5 mg total) by nebulization 4 (four) times a day as needed for wheezing or shortness of breath/dyspnea. 20 mL 3 Active apixaban (ELIQUIS) 5 mg tablet Take 5 mg by mouth 2 (two) times a day. Active predniSONE (DELTASONE) 5 MG tablet Take 5 mg by mouth daily with breakfast. Active Medication-Free Text nexplanon Active Social History Tobacco Use Types Packs/Day Years Used Date Smoking Tobacco: Never Smokeless Tobacco: Never Tobacco Cessation:Counseling Given: Not Answered Education Answer Date Recorded Are you interested [...] Orientation Straight 09/04/2024 3: 01 PM EDT Last Filed Vital Signs Vital Sign Reading Time Taken Comments Blood Pressure 100/60 10/03/2024 11:42 AM EST Pulse 93 10/03/2024 11:42 AM EST Temperature 36.7 C (98 F) 10/03/2024 11:42 AM EST Respiratory Rate 18 03/08/2023 11:22 PM EDT Oxygen Saturation 98% 10/03/2024 11:42 AM EST Inhaled Oxygen Concentration - - Weight 61.7 kg (136 lb) 10/03/2024 11:42 AM EST Height 152.4 cm (5') 10/03/2024 11:42 AM EST Body Mass Index 26.56 10/03/2024 11:42 AM EST Plan of Treatment Health Maintenance Due Date Last Done Comments DEPRESSION SCREENING 2009 HEPATITIS C SCREENING 2015 HIV ONE-TIME SCREENING (18-6 5 YEARS) 2015 PAP SMEAR 2018 Adult Td,Tdap Booster 01/27/2019 01/27/2009 CREATININE LEVEL 03/08/2024 03/08/2023, 03/05/2023 INFLUENZA VACCINE (#1) 2025 COVID-19 VACCINE ( - 2024-2 6 season) 2025 SMOKING STATUS SCREENING (On ce After 26 Yrs) Completed 10/03/2024 HEPATITIS A VACCINES Aged Out No long er eligible based on patient's age to complete this topic HIB VACCINES Aged Out No longer eligi ble based on patient's age to complete this topic MENINGOCOCCAL VACCINES (ACWY) Aged Out No longer eligible based on patient's age to complete this topic MENINGOCOCCAL VACCINES (B) Aged Out N o longer eligible based on patient's age to complete this topic PNEUMOCOCCAL VACCINES (0-49 years) Aged Out No longer eligible b ased on patient's age to complete this topic Medical Devices Not on file Procedures Procedure Name Priority Date/Time Associated Diagnosis Comments BASIC METABOLIC PANEL (BMP) STAT 03/08/2023 6:41 PM EDT from Last 3 Months or Most Recently Relevant to Health Maintenance Results * (ABNORMAL) Basic metabolic panel (03/08/2023 6:41 PM EDT) SODIUM 141 133 - 146 mmol/L [facility] CHLORIDE 105 96 - 108 mmol/L [facility] POTASSIUM 4.2 3.3 - 5.1 mmol/L [facility] CO2 24 21 - 35 mmol/L [facility] BUN 5(L) 6 - 19 mg/dL [facility] CREATININE 0.80 0.5 - 1.5 mg/dL [facility] GLUCOSE 93 70 - 99 mg/dL [facility] CALCIUM 10.0 8.4 - 10.3 mg/dL [facility] EGFR 105 >59 mL/min/1.7 3m2 [facility] Comment:Estimated glomerular filtration rate calculated using the CKD-EPI refit equation. ANION GAP 16 10 - 20 mmol/L [facility] Blood 03/08/2023 6:41 PM EDT 03/08/2023 6:46 PM EDT us Melony Hernández MD LAB BLOOD BKR ORDERABLES Fin al Result [facility] [address] [place] [address] from Last 3 Months or Most Recently Relevant to Health Maintenance [place] [address] [place] [address] [place] [place] [address] [place] [address] [place] [address] [address] [place] [address] [place] [address] ACO Care Teams Software Deployment Engineer Relationship Specialty Start Date End Date Rose Barba MD [address] [facility] [place] [address] PCP - General Internal Medicine 09/04/24 Rafael Perez MD [address] [facility] [place] [address] Internal Medicine 10/15/24 Additional Source Comments The information contained in this document represents components of the legal health record. It is not the complete legal health record.[facility]
--- OUTSIDE RECORDS SUMMARY | 2025-11-03 00:32 | XMS_ITS | Encounter Summary ---
Author Organization [facility] Address [address] [employer] [address] [address] Phone Care Team Providers Care Patient Consumer Marketer Name Role Phone Rose Barba MD Primary Care Provider Rafael Perez MD Unavailable [phone] Encounter Details Date Type Department Care Team (Late st Contact Info) Description 10/15/2024 Transcribe Orders Virtual Department [address] [place] [address] Zelda White MD [address] [place] [address] Social History Tobacco Use Types Packs/Day Years [...] on filedocumented in this encounter Care Teams Patient Consumer Marketer Relationship Specialty Start Date End Date Rose Barba MD [address] [facility] [place] [address] PCP - General Internal Medicine 09/04/24 Rafael Perez MD [address] [facility] [place] [address] Internal Medicine 10/15/24 documented as of this encounter Additional Source Comments The information contained in this document represents components of the legal health record. It is not the complete legal health record.[facility]
--- OUTSIDE RECORDS SUMMARY | 2025-11-03 00:32 | XMS_ITS | Encounter Summary ---
Author Organization [facility] Address [address] [employer] [facility] [address] [place] [address] Phone Care Team Providers Care Well Service Floor Worker Name Role Phone Rose Barba MD Primary Care Provider Rafael Perez MD Unavailable [phone] Reason for Referral * MRI/CAT Scan - Closed Specialty Diagnoses / Procedures Referred By Contlatonia t Referred To Contact Radiology Diagnoses Other diseases of mediastinum, not elsewhere classified Procedures CT Chest CHG DIAGNOSTIC COMPUTED TOMOGRAPHY THORAX W/CONTRAST Zelda White MD [address] [place] [address] Phone: tel: fax: Referral ID Status Reason Start Date Expiration Date Visits Re quested Visits Authorized [id number] Closed 09/30/2024 11/29/2024 1 1 Encounter Details Date Type Department Care Team (Late st Contact Info) Description 10/15/2024 Ancillary Orders [facility], Ct Scan - [address] [address] Zelda White MD [address] [address] Other diseases of mediastinum, not elsewhere classified (Primary Dx) Social History Tobacco Use Types Packs/Day Years [...] on file documented as of this encounter Results * CT CHEST WITH CONTRAST (10/16/2024 12:25 PM EST) Anatomical Region Laterality Modality Chest Computed Tomogra phy 10/21/2024 2:32 PM EST Impressions 10/21/2024 2:50 PM EST 1. Mild decreased size of mediastinal and hilar lymphadenopathy and mildly improved fissural nodularity and septal thickening. Differential diagnosis includes sarcoidosis; lymphoproliferative disorder and metastasis seem less likely given distribution and improvement on steroid therapy. Narrative 10/21/2024 2:[address] CHEST WITH CONTRAST Referring clinician's provided indication for this examination in Epic: * Lymphadenopathy, chest or axilla TECHNIQUE: Multidetector CT of the chest was performed with intravenous contrast using tailored dose modulation techniques. COMPARISON: CT CHEST OUTSIDE (NO INTERPRETATION) FINDINGS: Devices/Tubes/Lines: None. Lungs: Mildly decreased nodule along the left major fissure (5:176), likely representing an intrapulmonary lymph node. There are scattered lung micronodules including in the left upper lobe (5:117) and lingula (5:250). There is lower lung predominant interlobular septal thickening which appears less conspicuous than on prior. Improved thickening along the fissures. Persistent diffuse bronchial wall thickening. Patent central airways. Pleura: No pleural effusion or pneumothorax. Mediastinum: The heart size is normal. No pericardial effusion. No coronary calcification. Lymph Nodes: Mild decreased size of mediastinal and hilar lymphadenopathy. Electron Beam Welder Setter examples include a 7 mm short axis right paratracheal lymph node (3:31), previously 11 mm; 16 mm short axis subcarinal lymph node (2:45), previously 20 mm; and 9 mm short axis right hilar lymph node (5:166), previously 12 mm.. Upper Abdomen: No abnormality detected in the visualized upper abdomen. Chest Wall: No chest wall mass. Bones: No suspicious lytic or blastic lesions. Procedure Note Velma Carcamo MD - 10/21/2024 CT CHEST WITH CONTRAST Referring clinician's provided indication for this examination in Epic: *Lymphadenopathy, chest or axilla TECHNIQUE: Multidetector CT of the chest was performed with intravenouscontrast using tailored dose modulation techniques. COMPARISON: CT CHEST OUTSIDE (NO INTERPRETATION) FINDINGS: Devices/Tubes/Lines: None. Lungs: Mildly decreased nodule along the left major fissure (5:176),likely representing an intrapulmonary lymph node. There are scattered lungmicronodules including in the left upper lobe (5:117) and lingula (5:250).There is lower lung predominant interlobular septal thickening whichappears less conspicuous than on prior. Improved thickening along thefissures. Persistent diffuse bronchial wall thickening. Patent centralairways. Pleura: No pleural effusion or pneumothorax. Mediastinum: The heart size is normal. No pericardial effusion. Nocoronary calcification. Lymph Nodes: Mild decreased size of mediastinal and hilar lymphadenopathy.Electron Beam Welder Setter examples include a 7 mm short axis right paratracheal lymphnode (3:31), previously 11 mm; 16 mm short axis subcarinal lymph node(2:45), previously 20 mm; and 9 mm short axis right hilar lymph node(5:166), previously 12 mm.. Upper Abdomen: No abnormality detected in the visualized upper abdomen. Chest Wall: No chest wall mass. Bones: No suspicious lytic or blastic lesions. IMPRESSION: 1. Mild decreased size of mediastinal and hilar lymphadenopathy andmildly improved fissural nodularity and septal thickening. Differentialdiagnosis includes sarcoidosis; lymphoproliferative disorder andmetastasis seem less likely given distribution and improvement on steroidtherapy. Zelda White MD IMG CT CHEST Final Result documented in this encounter Visit Diagnoses Diagnosis Other diseases of mediastinum, not elsewhere classified- Primary Other diseases of mediastinum, not elsewhere classified documented in this encounter Care Teams Well Service Floor Worker Relationship Specialty Start Date End Date Rose Barba MD [address] [place] [address] PCP - General Internal Medicine 09/04/24 Rafael Perez MD [address] [place] [address] Internal Medicine 10/15/24 documented as of this encounter Additional Source Comments The information contained in this document represents components of the legal health record. It is not the complete legal health record.[facility]
--- OUTSIDE RECORDS SUMMARY | 2025-11-03 00:32 | XMS_ITS | Encounter Summary ---
Author Organization [facility] Address [address] [place] [address] Phone Care Team Providers Care Loom Changeover Operator Name Role Phone Mely Whittington MD Primary Care Provider [phone] Encounter Details Date Type Department Care Team (Late st Contact Info) Description 06/08/2017 Documentation [facility] [place] [address] [place] [address] Family Medicine, Physician [address] [place] [phone] Social History Tobacco Use Types Packs/Day Years [...] on filedocumented in this encounter Care Teams Loom Changeover Operator Relationship Specialty Start Date End Date Mely Whittington MD [address] [place] [address] [place] [address] PCP - General 07/06/17 02/25/23 documented as of this encounter
--- OUTSIDE RECORDS SUMMARY | 2025-11-03 00:32 | XMS_ITS | Encounter Summary ---
Author Organization [facility] Address [address] [place] [address] Phone Care Team Providers Care Daycare Manager Name Role Phone Mely Whittington MD Primary Care Provider Encounter Details Date Type Department Care Team (Late st Contact Info) Description 06/01/2017 Documentation [facility] [place] [address] [place] [address] Family Medicine, Physician [address] [place] [phone] Social History Tobacco Use Types Packs/Day Years [...] on filedocumented in this encounter Care Teams Daycare Manager Relationship Specialty Start Date End Date Mely Whittington MD [address] [place] [address] [place] [address] PCP - General 07/06/17 02/25/23 documented as of this encounter
--- OUTSIDE RECORDS SUMMARY | 2025-11-03 00:32 | XMS_ITS | Encounter Summary ---
Author Organization [facility] Address [address] [place] [address] Phone Care Team Providers Care Under Trimmer Name Role Phone Mely Whittington MD Primary Care Provider Encounter Details Date Type Department Care Team (Late st Contact Info) Description 07/17/2013 Documentation [facility] [place] Family Medicine [address] [place] [address] Family Medicine, Physician [address] [place], [place] [phone] Social History Tobacco Use Types Packs/Day Years [...] on filedocumented in this encounter Care Teams Under Trimmer Relationship Specialty Start Date End Date Mely Whittington MD [address] [facility] [place] [address] PCP - General 07/06/17 02/25/23 documented as of this encounter
--- OUTSIDE RECORDS SUMMARY | 2025-11-03 00:32 | XMS_ITS | Clinical Summary ---
Author Organization [facility] Address [address] [place] [address] Phone Care Team Providers Care [place] Carver Name Role Phone Unavailable Primary Care Provider [...] 79 08/16/2018 10:01 AM EDT Temperature 36.7 C (98.1 F) 08/16/2018 10:01 AM EDT Respiratory Rate - - Oxygen Saturation 100% 09/27/2012 12:00 AM EDT Inhaled Oxygen Concentration - - Weight 59.7 kg (131 lb 9.6 oz) 08/16/2018 10:01 AM EDT Height 156.8 cm (5' 1.75 ) 08/16/2018 10:01 AM E DT Body Mass Index 24.27 08/16/2018 10:01 AM EDT Plan of Treatment Health Maintenance Due Date Last Done Comments Influenza Vaccines (#1) 2025 08/16/20 18, 12/07/2016, 08/27/2015, Additional history exists COVID-19 Vaccine ( season) 2025 DTaP,Tdap,and Td Vaccines (8 - Td or Tdap) 05/26/2029 05/26/2019, 01/27/2009, 08/23/2001, Additional history exists HIB Vaccines Completed 06/30/1999, 11/26, 1997, Additional history exists IPV Vaccines Completed 08/23/2001, 11/26, 1997, Additional history exists MMR Vaccines Completed 08/23/2001, 06/30/1999 Varicella Vaccines Completed 01/27/2009, 06/29/1998 HPV Vaccines Completed 01/10/2011, 05/0 01/2010, 01/27/2009 Hepatitis A Vaccines Completed 10/16/2013, 06/21/20 11 Meningococcal Vaccine Completed 03/04/2015, 03/04/2 009 Hepatitis B Vaccines Completed 08/16/2018, 1997, 1997, Additional history exists Men B Vaccine Aged Out No longer elig ible based on patient's age to complete this topic Pneumococcal Vaccine Aged Out No long er eligible based on patient's age to complete this topic Procedures * Due to [facility] law, this organization might not be sharing sensitive test results. Procedure Name Priority Date/Time Associated Diagnosis Comments CHLAMYDIA AND GONORRHEA, AMPLIFIED Routine 08/16/2018 11:48 AM EDT Encounter for screening examination for infectious disease from Last 3 Months or Most Recently Relevant to Health Maintenance Results * Due to [place] [employer] law, this organization might not be sharing sensitive test results. * Chlamydia and Gonorrhea, Amplified (08/16/2018 11:48 AM EDT) Chlamydia Trachomatis, DNA Probe NEGATIVE (NEG) [facility] Comment: No Chlamydia Trachomatis RNA detected in this patient's sample (REFERENCE RANGE/NORMAL VALUE: NOT DETECTED) Note: This test uses poiser balance- mediated amplification method to detect rRNA from C. Trachomatis URINE GC AMP PROBE NEGATIVE (NEG) [facility] Comment: No Neisseria Gonorrhoeae RNA detected in this patient's sample (REFERENCE RANGE/NORMAL VALUE: NOT DETECTED) NOTE: This test uses poiser balance-mediated amplification method to detect rRNA from N.Gonorrhoeae. [...] without risk of sexual abuse. Consult the [facility] if needed. Contact phone number . Therapeutic failure or success cannot be determined with the Aptima Combo2 assay since nucleic acid may persist following appropriate antimicrobial therapy. The Centers for Disease Control and Prevention (CDC) recommends confirmatory retesting using culture or a different nucleic acid amplification test when positive results occur, if indicated. Testing performed or reported by [facility], a Service of [facility], [facility] [place] [address] CLIA [id number] Olya Rich MD, Director Export Urine 08/16/2018 11:4 8 AM EDT 08/16/2018 10:30 PM EDT us Wale Mendes MD LAB MICROBIOLOGY - GENERAL OR DERABLES Final Result [facility] from Last 3 Months or Most Recently Relevant to Health Maintenance Insurance [facility] NON [facility]
--- OUTSIDE RECORDS SUMMARY | 2025-11-03 00:32 | XMS_ITS | Encounter Summary ---
Author Organization [facility] Address [address] [place] [address] Phone Care Team Providers Care Nail Sticker Name Role Phone Mely Whittington MD Primary Care Provider [phone] Encounter Details Date Type Department Care Team (Late st Contact Info) Description 12/13/2016 Documentation [facility] [place] Family Medicine [address] [place] [address] Family Medicine, Physician [address] [place] [phone] Social History Tobacco Use Types Packs/Day Years [...] on filedocumented in this encounter Care Teams Nail Sticker Relationship Specialty Start Date End Date Mely Whittington MD [address] [place] [address] [place] [address] PCP - General 07/06/17 02/25/23 documented as of this encounter
== END 2025-11-02 16:12 | disposition home or self-care (01) ==
LOC: HO.HMCC 15:04
PROVIDERS: PCP Internal Medicine; Visit Provider Internal Medicine
DX: Z23 Encounter for immunization (principal)

== ENCOUNTER → 2025-11-02 15:03 | Outpatient (BNVA) | payer OTHER, SELFPAY | PROVIDERS: PCP Internal Medicine; Visit Provider Internal Medicine | DX: Z00.01 Encounter for general adult medical examination with abnormal findings (principal); Z23 Encounter for immunization; J45.20 Mild intermittent asthma, uncomplicated; J30.2 Other seasonal allergic rhinitis | CPT/HCPCS: 90471; 90656; 96127; 99395 ==